=== PATIENT | female | born 1985 | race Caucasian/White ===

== ENCOUNTER 2023-12-26 10:58 | Inpatient (IN) ==
[2023-12-26] MEDS ORDERED: OXYTOCIN 30 UNITS/NSS 30 UNITS/500 ML BAG IV PRN (11:13)
[2023-12-26] MEDS ORDERED: LIDOCAINE 1% LOCAL 20 ML VIAL INFIL PRN (11:13)
--- NOTE | 2023-12-26 11:16 | History & Physical Report ---
Date of Service December 26, 2023 Assessment & Plan (1) 39 weeks gestation of : Plan: Admit, routine labs, admission syphilis ordered Continuous monitoring consent signed at bedside due to category 2 tracing Proceed with if no improvement in strip, or if becomes category 1 will start induction of labor at this time Epidural if patient request (2) Chronic hypertension during , antepartum: Plan: Initial BP on admission 159/89. Stat PIH labs ordered and protein creatinine ratio Continue labetalol 200 mg twice daily If severe range blood pressures or signs or symptoms of severe preeclampsia will start magnesium sulfate for seizure prophylaxis (3) Antepartum anemia complicating in third trimester: Plan: Admission CBC pending (4) AMA (advanced maternal age) primigravida 35+: Admission and Anticipated Discharge Date Admission Date: December 26, 2023 History of Present Illness Chief Complaint: IOL Primary Care Provider: Joseline Brian MD Patient is a pleasant 38-year-old G1, P0 at 39 weeks and 0 days dated by LMP consistent with a 9-week ultrasound who presents for induction of labor at 39 weeks for chronic hypertension on medication. She is currently taking labetalol 200 mg twice daily. She took her morning dose this morning. Immediately called to labor and delivery room as patient had tachycardia in the late deceleration with minimal variability afterwards. has been complicated by chronic hypertension in , AMA, history of growth restriction at 27 weeks that resolved per MFM at 33 weeks, and antepartum anemia. Last estimated weight on 12/13/2023 was 15th percentile Patient denies regular contractions, leaking of fluid or vaginal bleeding. Notes good movement. Denies headache, blurry vision, right upper quadrant or epigastric pain. Otherwise feeling well. Denies any caffeine use this morning Allergies Allergy/AdvReac Type Severity Reaction Status Date / Time amoxicillin Allergy Intermediate Rash Verified 10/25/22 10:08 seasonal allergies Allergy Mild Congested Uncoded 10/25/22 10:08 LACTOSE INTOLERANCE AdvReac Unknown UNKNOWN Uncoded 10/25/22 10:08 Home Medications Medication Instructions Recorded Confirmed Type sertraline 25 mg tablet 25 mg PO PM 12/30/20 12/26/23 History aspirin 81 mg tablet,delayed 81 mg PO DAILY 12/26/23 12/26/23 History release cholecalciferol (vitamin D3) 25 25 mcg PO DAILY 12/26/23 12/26/23 History mcg (1,000 unit) capsule (Vitamin D3) labetalol 200 mg tablet 200 mg PO BID 12/26/23 12/26/23 History vit no.95-ferrous tab PO 12/26/23 History fumarate 28 mg-folic acid 800 mcg tablet () Patient History Medical History Migraines Family History Grandmother (Maternal) Breast cancer Family/Other Breast cancer Denies family history of Ovarian cancer Prostate cancer Myocardial infarction Colorectal cancer Social History Smoking Status: Never smoker Tobacco Type: Cigarettes Do You Dip or Chew Tobacco: No; Preferred Language: Turkmen marital status: Current Living Situation: Spouse current occupational status: employed Feels Safe at Home: Yes OB History RADIO DESPATCHER History Denies history of STDs Review of Systems All systems reviewed & are unremarkable except as noted in HPI & below Physical Exam Constitutional: WD/WN, vitals as above Respiratory: normal respiratory effort, lungs clear to auscultation Cardiovascular: RRR, no murmur, no edema Gastrointestinal (Abdomen): normal bowel sounds, soft, nontender, no hepatosplenomegaly Nicholas's estimated weight 3100g Genitourinary: External genitalia: Normal Cervix: Fingertip/10/-3 Results & Data Vital Signs (Past 12 Hours) Vital Signs Temp Pulse Resp BP 12/26/23 11:08 109 H 12/26/23 11:08 159/89 H 12/26/23 11:00 18 12/26/23 11:00 37.1 C 18 Monitoring External Monitor heart tracing: Baseline 1 55-1 60, minimal to moderate variability, no accelerations, late deceleration x 1, category 2 tracing Tocodynamometer Irregular contractions (4) AMA (advanced maternal age) primigravida 35+ Trimester: third trimester Qualified Code(s): O09.513 - Supervision of elderly primigravida, third trimester
[2023-12-26] MEDS: LACTATED RINGER'S 1,000 ML IV PRN (11:35)
[2023-12-26 12:06] LABS: Hematocrit (blood only) 37.1 % (37.0-47.0); Hemoglobin 12.6 g/dl (12.0-16.0); Mean Corpuscular Hemoglobin 31.7 pg (25.0-34.0); Mean Corpuscular Volume 93.5 fL (80.0-100.0); Mean Platelet Volume 11.8 fL (9.4-12.4); Platelet Count 234 K/uL (130-400); RDW Coefficient of Variation 13.4 % (11.5-14.5); RDW Standard Deviation 45.6 fL (36.4-46.3); Red Blood Count 3.97 M/uL (4.20-5.40); White Blood Count 11.22 K/ul (4.8-10.8)
[2023-12-26 12:29] LABS: Albumin Level 3.5 gm/dl (3.4-5.0); Bilirubin,Total 0.2 mg/dl (0.2-1.0); Calcium 9.7 mg/dl (8.6-10.3); Potassium 4.2 mmol/L (3.5-5.1)
[2023-12-26 12:33] LABS: Total Protein Urine Random 16.3 mg/dl (0-11.9)
[2023-12-26 12:35] LABS: Albumin Globulin Ratio 1.3 (0.9-2); Creatinine Clr Calc Pharmacy 145.1 ml/min; Est GFR (African American) 138.9 ml/min; Est GFR (Non-African American) 119.8 ml/min; Globulin 2.8 gm/dl (2.5-4.0); Total Protein 6.3 gm/dl (6.0-8.3)
[2023-12-26 12:38] LABS: Creatinine Urine Random 39.9 mg/dl; Protein Creatinine Ratio Urine 0.4 (0-0.2)
[2023-12-26] MEDS: miSOPROStoL 50 MCG TAB PO SCH (12:51)
--- NOTE | 2023-12-26 14:44 | Obstetrical Progress Note ---
Date of Service December 26, 2023 Assessment & Plan (1) 39 weeks gestation of : Plan: Continue misoprostol 50 mcg p.o. every 4 hours Epidural if patient request Anticipate starting oxytocin for augmentation when patient makes adequate cervical change Anticipate spontaneous vaginal delivery (2) Chronic hypertension with superimposed preeclampsia: Plan: Based on elevated blood pressures with protein creatinine ratio of 0.4 Continue labetalol 200 mg twice daily, magnesium sulfate and rescue if severe range blood pressures or becomes symptomatic Patient updated at bedside (3) AMA (advanced maternal age) primigravida 35+: (4) Antepartum anemia complicating in third trimester: Plan: Admission H&H stable Admission and Anticipated Discharge Date Admission Date: December 26, 2023 Subjective Patient comfortable at this time, no complaints Physical Exam Genitourinary: heart tracing: Baseline 155, moderate variability, positive accelerations, no decelerations, currently category 1 tracing Tocometer: Contractions every 3 to 5 minutes Cervical exam: Deferred Results & Data Vital Signs (Past 12 Hours) Vital Signs Temp Pulse Resp BP 12/26/23 12:40 96 H 133/81 12/26/23 11:59 103 H 151/92 H 12/26/23 11:45 102 H 140/92 12/26/23 11:15 37.1 C 109 H 18 159/89 H 12/26/23 11:08 109 H 12/26/23 11:08 159/89 H 12/26/23 11:00 18 12/26/23 11:00 37.1 C 18 Laboratory Results Laboratory Results WBC 11.22 K/ul (4.8-10.8) H 12/26/23 11:38 RBC 3.97 M/uL (4.20-5.40) L 12/26/23 11:38 Hgb 12.6 g/dl (12.0-16.0) 12/26/23 11:38 Hct 37.1 % (37.0-47.0) 12/26/23 11:38 MCV 93.5 fL (80.0-100.0) 12/26/23 11:38 MCH 31.7 pg (25.0-34.0) 12/26/23 11:38 MCHC 34.0 g/dL (32.0-36.0) 12/26/23 11:38 RDW Std Deviation 45.6 fL (36.4-46.3) 12/26/23 11:38 RDW Coeff of Sai 13.4 % (11.5-14.5) 12/26/23 11:38 Plt Count 234 K/uL (130-400) 12/26/23 11:38 MPV 11.8 fL (9.4-12.4) 12/26/23 11:38 Sodium 135 mmol/L (136-145) L 12/26/23 11:38 Potassium 4.2 mmol/L (3.5-5.1) 12/26/23 11:38 Chloride 107 mmol/L (98-107) 12/26/23 11:38 Carbon Dioxide 19 mmol/L (21-32) L 12/26/23 11:38 Anion Gap 9 (3-11) 12/26/23 11:38 BUN 11 mg/dl (6-23) 12/26/23 11:38 Creatinine 0.55 mg/dl (0.6-1.2) L 12/26/23 11:38 Est Cr Clr Drug Dosing 145.1 ml/min 12/26/23 11:38 Est GFR ( Amer) 138.9 ml/min 12/26/23 11:38 Est GFR (Non-Af Amer) 119.8 ml/min 12/26/23 11:38 BUN/Creatinine Ratio 20.0 (10-20) 12/26/23 11:38 Glucose 119 mg/dl (70-99(Fasting)) H 12/26/23 11:38 Calcium 9.7 mg/dl (8.6-10.3) 12/26/23 11:38 Total Bilirubin 0.2 mg/dl (0.2-1.0) 12/26/23 11:38 AST 16 U/L (13-39) 12/26/23 11:38 ALT 14 U/L (7-52) 12/26/23 11:38 Alkaline Phosphatase 176 U/L (34-104) H 12/26/23 11:38 Total Protein 6.3 gm/dl (6.0-8.3) 12/26/23 11:38 Albumin 3.5 gm/dl (3.4-5.0) 12/26/23 11:38 Globulin 2.8 gm/dl (2.5-4.0) 12/26/23 11:38 Albumin/Globulin Ratio 1.3 (0.9-2) 12/26/23 11:38 Ur Random Creatinine 39.9 mg/dl 12/26/23 11:30 U Random Total Protein 16.3 mg/dl (0-11.9) H 12/26/23 11:30 Protein/Creatinin Ratio 0.4 (0-0.2) H 12/26/23 11:30 Blood Type A Positive 12/26/23 11:38 Antibody Screen NEGATIVE 12/26/23 11:38 (3) AMA (advanced maternal age) primigravida 35+ Trimester: third trimester Qualified Code(s): O09.513 - Supervision of elderly primigravida, third trimester
--- NOTE | 2023-12-26 18:30 | Obstetrical Progress Note ---
Date of Service December 26, 2023 Assessment & Plan (1) 39 weeks gestation of : Plan: Continue misoprostol 50 mcg p.o. every 4 hours. Currently lakshmi too much to give a second dose at this time Epidural if patient request Anticipate starting oxytocin for augmentation when patient makes adequate cervical change Anticipate spontaneous vaginal delivery (2) Chronic hypertension with superimposed preeclampsia: Plan: Based on elevated blood pressures with protein creatinine ratio of 0.4 Continue labetalol 200 mg twice daily, magnesium sulfate and rescue if severe range blood pressures or becomes symptomatic (3) AMA (advanced maternal age) primigravida 35+: (4) Antepartum anemia complicating in third trimester: Plan: Admission H&H stable Admission and Anticipated Discharge Date Admission Date: December 26, 2023 Subjective No complaints, patient was checked by RN Physical Exam Genitourinary: heart tracing: Baseline 140, moderate variability, positive accelerations no decelerations, category 1 tracing Tocometer: Contractions every 2 to 4 minutes Cervix: 2/50/-3, was checked by RN Results & Data Vital Signs (Past 12 Hours) Vital Signs Temp Pulse Resp BP 12/26/23 17:01 103 H 145/80 H 12/26/23 15:13 100 H 146/87 H 12/26/23 15:00 18 12/26/23 15:00 36.5 C 18 12/26/23 12:40 96 H 133/81 12/26/23 11:59 103 H 151/92 H 12/26/23 11:45 102 H 140/92 12/26/23 11:15 37.1 C 109 H 18 159/89 H 12/26/23 11:08 109 H 12/26/23 11:08 159/89 H 12/26/23 11:00 18 12/26/23 11:00 37.1 C 18 (3) AMA (advanced maternal age) primigravida 35+ Trimester: third trimester Qualified Code(s): O09.513 - Supervision of elderly primigravida, third trimester
[2023-12-26] MEDS: SERTRALINE HCL 50 MG TABLET PO SCH (20:45)
[2023-12-26] MEDS: LABETALOL HCL 200 MG TAB PO SCH (21:03)
[2023-12-27 05:53] LABS: Basophils # (auto) 0.04 K/uL (0.00-0.20); Basophils % (auto) 0.3 %; Eosinophils # (auto) 0.18 K/uL (0.00-0.50); Eosinophils % (auto) 1.6 %; Hematocrit (blood only) 36.2 % (37.0-47.0); Hemoglobin 12.2 g/dl (12.0-16.0); Immature Granulocytes # (auto) 0.13 K/uL (0.01-0.20); Immature Granulocytes % (auto) 1.1 %; Lymphocytes # (auto) 1.53 K/uL (1.20-3.40); Lymphocytes % (auto) 13.2 %; Mean Corpuscular Hemoglobin 31.6 pg (25.0-34.0); Mean Corpuscular Hgb Conc 33.7 g/dL (32.0-36.0); Mean Corpuscular Volume 93.8 fL (80.0-100.0); Mean Platelet Volume 11.7 fL (9.4-12.4); Monocytes # (auto) 0.82 K/uL (0.11-0.59); Monocytes % (auto) 7.1 %; Neutrophils # (auto) 8.86 K/uL (1.40-6.50); Neutrophils % (auto) 76.7 %; Platelet Count 214 K/uL (130-400); RDW Coefficient of Variation 13.7 % (11.5-14.5); RDW Standard Deviation 46.5 fL (36.4-46.3); Red Blood Count 3.86 M/uL (4.20-5.40); White Blood Count 11.56 K/ul (4.8-10.8)
[2023-12-27 06:03] LABS: Albumin Globulin Ratio 1.2 (0.9-2); Albumin Level 3.3 gm/dl (3.4-5.0); BUN Creatinine Ratio 14.1 (10-20); Bilirubin,Total 0.4 mg/dl (0.2-1.0); Calcium 8.6 mg/dl (8.6-10.3); Creatinine Clr Calc Pharmacy 124.7 ml/min; Est GFR (African American) 132.1 ml/min; Globulin 2.7 gm/dl (2.5-4.0)
--- NOTE | 2023-12-27 06:17 | Obstetrical Progress Note ---
Date of Service December 27, 2023 Assessment & Plan (1) 39 weeks gestation of : Plan: Patient is status post 4 doses of misoprostol p.o. Now status post AROM, start oxytocin for augmentation Epidural if patient request Anticipate spontaneous vaginal delivery (2) Chronic hypertension with superimposed preeclampsia: Plan: Based on elevated blood pressures with protein creatinine ratio of 0.4 Continue labetalol 200 mg twice daily, magnesium sulfate and rescue if severe range blood pressures or becomes symptomatic (3) AMA (advanced maternal age) primigravida 35+: (4) Antepartum anemia complicating in third trimester: Plan: Admission H&H stable Admission and Anticipated Discharge Date Admission Date: December 26, 2023 Subjective Patient getting more uncomfortable with contractions, sitting up in bed Physical Exam Genitourinary: heart tracing: Baseline 130, moderate variability, no accelerations no decelerations Tocometer: Irregular contractions Cervix: 5/60/-3, AROM performed with moderate amount of clear fluid. No cord felt. No complications Results & Data Vital Signs (Past 12 Hours) Vital Signs Temp Pulse Resp BP 12/27/23 04:19 37.0 C 96 H 16 123/67 12/27/23 00:21 88 134/77 12/27/23 00:20 18 12/27/23 00:20 36.8 C 18 12/26/23 21:02 98 H 145/90 H 12/26/23 19:19 95 H 144/87 H 12/26/23 19:05 18 12/26/23 19:05 37.0 C 18 (3) AMA (advanced maternal age) primigravida 35+ Trimester: third trimester Qualified Code(s): O09.513 - Supervision of elderly primigravida, third trimester
--- OUTSIDE RECORDS SUMMARY | 2023-12-27 08:53 | External Medical Summary | Summary of Care ---
Author Name Unknown Organization [facility] Address [address] [place] [address] Phone [phone] Care Team Providers Care Invasive Manager Name Role Phone Lelia Mendoza DO Primary Care Provider + [phone] Reason for Visit * Reason Comments Outpatient Testing Encounter Details Date Type Department Care Team (Late st Contact Info) Description 12/20/2023 10:40 AM EDT Laboratory Laboratory, [facility] [address] [place] [phone] [facility] [address] [place] [address] [employer] Other*[id number] Allergies Active Allergy Reactions Criticality Noted Date Comments Amoxicillin Rash 10/16/2016 Pollen 05/08/2023 documented as of this encounter (statuses as of 12/20/2023) Medications Medication Sig Dispensed Refills Start Date End Date Status Vit-Fe Fumarate-FA ( VITAMIN) 27-0.8 MG TABS Take by mouth. 0 Active Vitamin D (Cholecalciferol) 25 MCG (1000 UT) Oral Capsule Take by mouth . 0 Active Lactaid Fast Act 9000 UNIT Oral Tablet (Lactase) Take by mouth. 0 Acti ve Aspirin 81 MG Oral Tablet Delayed Release Take 1 Tablet by mouth in the morning. 0 07/04/2023 Active Breast Pump Use as directed 1 Each 0 11/22/2023 Active Sertraline HCl 25 MG Oral Tablet (Zoloft)Indications: Recurrent major depressive disorder, in partial remission (HCC) Take 1 Tablet by mouth in the morning. 30 Tablet 11 12/06/2023 Active Additional Information Patient not taking.Reported on 12/20/2023 Labetalol HCl 200 MG Oral Tablet (Normodyne)Indicatio ns:Chronic hypertension in Take 1 Tablet by mouth in the morning and 1 Tablet before bedtime. 60 Tablet 2 12/13/2023 Active documented as of this encounter (statuses as of 12/20/2023) Active Problems Problem Noted Date Diagnosed Date Antepartum multigravida of advanced maternal age 1208/09/2023 Overview: Age 38 at delivery NIPT: low risk / boy MFM anatomy scan scheduled 08/19/2023 Last Assessment & Plan: She presents for a anatomy survey secondary to AMA and CHTN (not on medications). Labs reviewed: -- cffDNA low risk for aneuploidy -- msAFP low risk for ONTD We reviewed the results of today's ultrasound. The estimated weight is lagging by 8 days. The biometry is overall appropriate for gestational age. The visualized anatomy is unremarkable in appearance. Some structures are suboptimally imaged secondary to position and poor acoustic windows. The amniotic fluid amount appears normal. We discussed that ultrasound is not able to identify all anomalies, but it is reassuring that no anomalies were seen today. We reviewed the biometry and estimated weight, which are on the smaller side of normal overall. She reports a family history of smaller babies, and we discussed that this may be a constitutional finding. Given the early gestational age, we will to reassess in about 3-4 weeks. High-risk 08/09/2023 Chronic hypertension in 08/01/2023 Overview: Chronic hypertension in Diagnosed at 18 weeks gestation Taking daily low dose ASA Doing daily home BP monitoring: running 130s / high 80's to low 90's Started on medication Labetalol 200 mg BID at 12/13/2023, weekly NST Considerations: Women with chronic hypertension during are at significantly increased risk for morbidity. Signs and symptoms of superimposed pre-eclampsia were reviewed; instructed patient to contact primary OB care provider if these symptoms occur. Recommendations: Obtain baseline lab work SCOTTIE (if not already done) with assessment of proteinuria (24-hour urine protein or zfhrzvs-[id number] ratio) and CBC, serum AST/ALT/creatinine. If patient has had hypertension for 10 years or more, obtain an EKG and eye exam (if not performed within the past year). Recommend initiation of aspirin (81mg) daily, from 13 weeks until delivery, to decrease the risk of superimposed preeclampsia. Daily home blood pressure monitoring, especially in the second half of the . It may be useful to have the patient validate their home device with their primary OB care provider's office. Patients with BP less than 140/90 maintained with antihypertensives should continue medication during . Discontinuation of YULISSA inhibitors or angiotensin type II receptor antagonists under the guidance of the primary care physician prior to conception of or upon knowledge of . Initiate or adjust antihypertensive medication if BP is 140/90 or greater on at least two occasions at least 4 hours apart and refer patient back to Maternal- Medicine. Titrate medication to maintain blood pressure in a goal range 120-140/70-90. Labetalol and Nifedipine are considered safe for use in and these agents are considered as first-line therapy when indicated. Maternal Medicine ultrasound for anatomy at 19-20 weeks. surveillance as follows: If NOT being treated with anti-hypertensives: Maternal- Medicine ultrasound for growth between 28-30 weeks If being treated with anti-hypertensives: Maternal- Medicine ultrasound for growth every 4 weeks starting at 24-26 weeks surveillance weekly starting at 32 weeks gestation Delivery should be individualized based on blood pressure control and assessment of patient risk and is indicated as follows: For those with stable blood pressures not on anti-hypertensive medications: Between 38 0/7 and 39 6/7 weeks For those on anti-hypertensive medications: Between 37 0/7 and 39 6/7 weeks Baseline Preeclampsia Labs Lab Results Component Value Date/Time PLATELET AUTO - [facility] 294 07/04/2023 11:11 AM CREATININE - [facility] 0.6 07/04/2023 11:11 AM AST - [facility] 12 07/04/2023 11:11 AM ALT - [facility] 15 07/04/2023 11:11 AM PROTEIN/ CREATININE RATIO, URINE - [facility] 65 07/08/2023 01:46 PM BP Readings from Last 10 Encounters: 08/01/23 136/80 07/08/23 140/80 07/04/23 140/90 06/06/23 112/78 05/08/23 116/70 07/31/22 112/68 07/17/22 110/70 06/06/22 116/62 02/05/22 120/60 07/13/21 122/74 Last Assessment & Plan: Her initial BP was 160/90 with a repeat of 144/74. She denies headaches/vision changes or RUQ pain and reports some work stress today that may have impacted the first value. She states home BP's have been 128-136/85-92 or so, though on review of her flowsheet most values are > 140 systolic. I recommended continued home monitoring and would consider medications if consistent values > 140/90. Chronic intractable headache 02/05/2022 Allergic rhinitis 02/05/2022 Recurrent major depressive disorder, in partial remission 12/05/2021 Estimated Date of Delivery Comme nts Yes 01/02/2024 Based on last me nstrual period of 03/28/2023 (Exact Date), 03/28 - 03/31 was LMP documented as of this encounter (statuses as of 12/20/2023) Resolved Problems Problem Noted Date Diagnosed Date Resolved Date Poor growth affecting management of mother, antepartum 10/04/2023 12/06/2023 Overview: EFW 8th %ile at 27 weeks; weekly BPP/NST and dopplers per MFM Resolved per MFM as of 33 weeks, no surveillance needed for FGR Last Assessment & Plan: She presents for follow-up of growth. FGR has been noted on prior imaging, though the most recent evaluation was in the lower range of normal. She has a history of AMA and CHTN (not on medications). Today's ultrasound notes the following: The estimated weight is appropriate for gestational age in the 17th percentile with an AC in the 29th percentile. The visualized anatomy is unremarkable in appearance. The CHASE is normal. with 19 completed weeks gestation 08/09/2023 08/19/2023 Elevated blood pressure affe cting in second trimester, antepartum 07/04/2023 08/02/20 23 Overview: Elevated BP at 14w Positive test 05/08/2023 11/3 documented as of this encounter (statuses as of 12/20/2023) Immunizations Name Administration Dates Next Due COVID-19 mRNA, LNP-s, No Pre serve, 2-Dose Series (Pfizer) 10/01/2020,09/10/2020 DTWP - Dipth/Tet/Whole Cell Pertussis 04/02/2005 PPD 09/20/2017,09/11/2017 Seasonal Influenza, PF, 6 M & above, IM , (FluLaval or Fluzone) 06/28/2021 Seasonal Influenza, QUAD, wi th Preserv, 6 mons & Above, 0.5 mL, IM 06/16/2020 Seasonal Influenza, Split, IIV3, With Preserve, Inj 07/16/2016,06/21/2015 TD, Preservative Free 11/10/2018 TDAP (age 10 and older)(Boostrix) 11/08/2023 TDAP (age 11 and older)(Adacel) 04/02/2005 documented as of this encounter Social History Tobacco Use Types Packs/Day Years Used Date Smoking Tobacco: Never Smokeless Tobacco: Never Comments:No passive smoke ex posures Alcohol Use Standard Drinks/Week Comments Not Currently 0 (1 standard drink = 0.6 oz pur e alcohol) PHQ-2 Answer Date Recorded PHQ Adult Total Score 0 11/08/2023 Hunger Vital Sign Answer Date Recorded Within the past 12 months, y ou worried that your food would run out before you got the money to buy more. Patient declined Within the past 12 months, t he food you bought just didn't last and you didn't have money to get more. Patient declined Meadow Depression Scale Answer Date Recorded Meadow Depression Scale Total 8 11/08/2023 The thought of harming myself has occurred to me . Never 11/08/2023 Estimated Date of Delivery Comme nts Yes 01/02/2024 Based on last me nstrual period of 03/28/2023 (Exact Date), 03/28 - 03/31 was LMP Sex and Gender Information Value Date Recorded Sex Assigned at Female 01/05/2021 9:06 AM EDT Gender Identity Female 01/05/2021 9:06 AM EDT Sexual Orientation Straight 01/05/2021 9: 06 AM EDT Job Start Date Occupation Industry Not on file Not on file Not on file documented as of this encounter Plan of Treatment Upcoming Encounters Date Type Department Care Team (Late st Contact Info) Description 12/27/2023 9:15 AM EDT Office Visit Gynecology/Obstetrics [facility] [address] [place] [address] Tabatha Funez PA-C [address] [place] [address] 01/01/2024 9:30 AM EDT Office Visit Gynecology/Obstetrics [facility] [address] [place] [address] Karol Beavers CRNP [address] [place] [address] 01/22/2024 12:50 PM EDT [place] [address] [place] [id number] Lelia Mendoza DO [address] [place] [address] Pending Results Name Type Priority Associated Diagnoses Date /Time MYCODE SUBSEQUENT ADULT Lab Routine [employer] Other*[id number] 12/20/2023 10:22 AM EDT MYCODE SST1 Lab Routine [employer] Other*[id number] 12/20/2023 10:22 AM EDT MYCODE SST2 Lab Routine [employer] Other*[id number] 12/20/2023 10:22 AM EDT Health Maintenance Due Date Last Done Comments Hepatitis B (1 of 3 - 19+ 3-dose series) 2005 HPV/Co-Test 2016 Influenza Vaccine (FLU shot) (Season Ended) 2024 06/28/2021, 06/16/2020, 07/16/2016, Additional history exists Cervical Cancer Screening 07/13/2024 Pap Smear 07/13/2024 07/13/2021, 10/31, 01/23/2016 GFR 12/12/2024 12/13/2023, 0401/2024, 07/04/2023, Additional history exists Diabetes Screening 12/12/2026 12/13/2023, 1 10/24/2019, 08/23/2020, Additional history exists DTaP,Tdap,and Td Vaccines (4 - Td or Tdap) 11/07/2033 11/08/2023, 11/10/2018, 04/02/2005, Additional history exists COVID-19 Vaccine Completed 07/11/2023, , 10/01/2020, Additional history exists GARDASIL-HPV IMMUNIZATION SERIES Aged Out No longer eligible based on patient's age to complete this topic MENINGOCOCCAL (MENACTRA/MENVEO) Aged Out No longer eligible based on patient's age to complete this topic Pneumococcal Vaccine: Pediatrics (0 to 5 Years) and At-Risk Patients (6 to 64 Years) Aged Out No longer eligible based on patient's age to complete this topic documented as of this encounter Medical Devices Not on filedocumented as of this encounter Visit Diagnoses Diagnosis [employer] Other*[id number] documented in this encounter Care Teams Invasive Manager Relationship Specialty Start Date End Date Lelia Mendoza DO [address] [place] [address] PCP - General Family Medicine 10/14/23 documented as of this encounter
--- OUTSIDE RECORDS SUMMARY | 2023-12-27 08:53 | External Medical Summary ---
Author Name Unknown Address Unknown Organization [id number]:LAB[facility] [place] - [address] [place] [address] Laboratory Report Ordering Provider Test Date Status MICHAEL GODINEZ 12/20/2023 10:22:20 Final Observation Date Value Abnormality Reference (Units ) Status MYCODE SPECIMEN-SST 12/20/2023 10:22:20 Freezing of extracted DNA, whole blood and/or serum. Final Performing Location [facility] [place] - [address] [place] [address]
--- OUTSIDE RECORDS SUMMARY | 2023-12-27 08:53 | External Medical Summary ---
Author Name Unknown Address Unknown Organization [id number]:[facility] [place] - [address] [place] [address] Laboratory Report Ordering Provider Test Date Status MICHAEL GODINEZ 12/20/2023 10:22:20 Final Observation Date Value Abnormality Reference (Units ) Status MYCODE SPECIMEN-SST 12/20/2023 10:22:20 Freezing of extracted DNA, whole blood and/or serum. Final Performing Location [facility] [place] - [address] [place] [address]
--- OUTSIDE RECORDS SUMMARY | 2023-12-27 08:53 | External Medical Summary | Summary of Care ---
Author Name Unknown Organization [facility] Address [address] [place] [address] Phone [phone] Care Team Providers Care Assignment Clerk Name Role Phone Lelia Mendoza DO Primary Care Provider [phone] Reason for Visit * Reason Comments Return Visit Encounter Details Date Type Department Care Team (Late st Contact Info) Description 12/20/2023 9:15 AM EDT Office Visit Gynecology/Obstetric s [facility] [address] [place] [address] Tabatha Funez PA-C [address] [place] [address] High-risk in third trimester*; Chronic hypertension in ; Antepartum multigravida of advanced maternal age Allergies Active Allergy Reactions Criticality Noted Date [...] assessment of proteinuria (24-hour urine protein or qbcahjw-ga-wuewsbcwxb ratio) and CBC, serum AST/ALT/creatinine. If patient [...] cting in second trimester, antepartum 07/04/2023 08/02/20 Overview: Elevated BP at 14w Positive test 05/08/202307/05 documented as of this encounter (statuses as [...] have money to get more. Patient declined [place] Depression Scale Answer Date Recorded [place] Depression Scale Total 8 11/08/2023 The thought [...] on file documented as of this encounter Last Filed Vital Signs Vital Sign Reading Time Taken Comments Blood Pressure 140/88 12/20/2023 9:11 AM EDT rep eat 142/88 Pulse - - Temperature - - Respiratory Rate - - Oxygen Saturation - - Inhaled Oxygen Concentration - - Weight 88.9 kg (196 lb) 12/20/2023 9:11 AM EDT Height 157.5 cm (5' 2") 12/20/2023 9:11 AM EDT Body Mass Index 35.85 12/20/2023 9:11 AM EDT documented in this encounter Progress Notes * Tabatha Funez PA-C - 12/20/2023 1:56 PM EDT 38w1d CHTN started on Labetalol 200 mg BID with last visit. PEC labs WNL. Denies moreno, RUQ pain, cp, SOB, epigastric pain. Doing well overall. Still having trouble sleeping. She states partner snores at night. NST completed today as on medication. AIDE David read/approved NST as provider was in rapid response. Repeat PEC labs today. IOL scheduled 12/26/2023. PEC precautions. Tabatha Funez PA-C * Karol Beavers CRNP - 12/20/2023 10:10 AM EDT ASSESSMENT assessment with Non-stress Test completed on 12/20/2023 at 38.1weeks gestation for indication of chronic hypertension heart baseline: 150 bpm Variability: Moderate Decelerations: absent Accelerations: present Contractions: None NST start time: 09 NST stop time: 09 NST strip reviewed, interpreted, and approved by OB provider, AIDE Nick . NST strip stored in clinic storage file documented in this encounter Nursing Notes * Sharon Magaña LPN - 12/20/2023 9:19 AM EDT 38w1d documented in this encounter Plan of Treatment Upcoming Encounters Date Type Department Care Team (Late st Contact Info) Description 12/27/2023 9:15 AM EDT Office Visit Gynecology/Obstetrics [facility] [address] [place] [address] Tabatha Funez PA-C [address] [place] [address] 01/01/2024 9:30 AM EDT Office Visit Gynecology/Obstetrics [facility] [address] [place] [address] Karol Beavers CRNP [address] [place] [address] 01/22/2024 12:50 PM EDT Telemedicine [place] [address] [place] [id number] Lelia Mendoza DO [address] [place] [address] Pending Results Name Type Priority Associated Diagnoses Date /Time PROTEIN/ CREATININE RATIO, URINE Lab Routine High-risk in third trimester Chronic hypertension in 12/20/2023 11:36 AM EDT Health Maintenance Due Date Last Done Comments Hepatitis B (1 of 3 - 19+ 3-dose series) 2005 HPV/Co-Test 2016 Influenza Vaccine (FLU shot) (Season Ended) 2024 06/28/2021, 06/16/2020, 07/16/2016, Additional history exists Cervical Cancer Screening 07/13/2024 Pap Smear 07/13/2024 07/13/2021, 10/31, 01/23/2016 GFR 12/19/2024 12/20/2023, 12/01, 12/06/2023, Additional history exists Diabetes Screening 12/19/2026 12/20/2023, 0 12/13/2023, 08/23/2020, Additional history exists DTaP,Tdap,and Td Vaccines [...] Not on filedocumented as of this encounter Procedures Procedure Name Priority Date/Time Associated Diagnosis Comments COMPREHENSIVE METABOLIC PANEL Routine 12/20/2023 10:22 AM EDT High-risk in third trimester Chronic hypertension in CBC Routine 12/20/2023 10:22 AM EDT High-risk in third trimester Chronic hypertension in URINALYSIS, POINT OF CARE (ENTER/EDIT) Routine 12/20/2023 Chronic hypertension in documented in this encounter Results * (ABNORMAL) CBC (12/20/2023 10:22 AM EDT) WBC 12.34(H) 4.00 - 10.80 K/uL 12/20/2023 11:05 AM EDT LAB[facility]ATORY [place] [facility] RBC 4.16 3.85 - 5.15 M/uL 12/20/2023 11:05 AM EDT LAB[facility] [place] [facility] HGB 13.1 12.0 - 15.3 g/dL 12/20/2023 11:05 AM EDT [facility] HCT 40.2 36.0 - 45.2 % 12/20/2023 11:05 AM EDT [facility] [place] [facility] MCV 96.6 81.5 - 97.5 fL 12/20/2023 11:05 AM EDT [facility] [place] [facility] MCH 31.5 27.0 - 34.0 pg 12/20/2023 11:05 AM EDT [facility] [place] [facility] MCHC 32.6 32.0 - 36.0 g/dL 12/20/2023 11:05 AM EDT [facility] [place] [facility] RDW 13.6 11.5 - 15.5 % 12/20/2023 11:05 AM EDT [facility] [place] [facility] PLT 244 140 - 400 K/uL 12/20/2023 11:05 AM EDT [facility] [place] [facility] MPV 11.8 6.6 - 11.1 fL 12/20/2023 11:05 AM EDT [facility] Blood Venous blood specimen / Unknown Venipuncture / Unknown 12/20/2023 10:22 AM EDT 12/20/2023 10:22 AM EDT Tabatha Funez PA-C LAB BLOOD ORDERABLES [facility] [place] [address] [place] [address] [place] [address] * (ABNORMAL) COMPREHENSIVE METABOLIC PANEL (12/20/2023 10:22 AM EDT) BUN 11 6 - 20 mg/dL 12/20/2023 11:38 AM EDT [facility] Creatinine 0.7 0.5 - 1.0 mg/dL 12/20/2023 11:38 AM EDT [facility] [place] [facility] Estimated Glomerular Filtration Rate >90 >=60 mL/min 12/20/2023 11:38 AM EDT [facility] [place] [facility] Comment:eGFR is calculated b ased on the CKD-EPI 2020 equation Sodium 134(L) 135 - 146 mmol/L 12/20/2023 11:38 AM EDT [facility] [place] [facility] Potassium 4.4 3.5 - 5.1 mmol/L 12/20/2023 11:38 AM EDT [facility] [place] [facility] Chloride 101 98 - 107 mmol/L 12/20/2023 11:38 AM EDT [facility] [place] [facility] CO2 21(L) 22 - 32 mmol/L 12/20/2023 11:38 AM EDT LAB[facility] [place] [facility] Anion Gap 12 7 - 15 mmol/L 12/20/2023 11:38 AM EDT [facility] [place] [facility]10 Glucose 84 70 - 120 mg/dL 12/20/2023 11:38 AM EDT [facility] [place] [facility] Albumin 3.8 3.8 - 5.0 g/dL 12/20/2023 11:38 AM EDT [facility] [place] [facility] AST 20 10 - 35 U/L 12/20/2023 11:38 AM EDT [facility] [place] [facility] Alkaline Phosphatase 196(H) 35 - 130 U/L 12/20/2023 11:38 AM EDT [facility] [place] [facility] Bilirubin, Total 0.2 <=1.2 mg/dL 12/20/2023 11:38 AM EDT [facility] [place] [facility] Calcium 8.7 8.4 - 10.2 mg/dL 12/20/2023 11:38 AM EDT [facility] [place] [facility] Protein 6.4 6.0 - 8.3 g/dL 12/20/2023 11:38 AM EDT [facility] [place] [facility] ALT 15 10 - 35 U/L 12/20/2023 11:38 AM EDT [facility] [place] [facility] Blood Venous blood specimen / Unknown Venipuncture / Unknown 12/20/2023 10:22 AM EDT 12/20/2023 10:22 AM EDT Tabatha Funez PA-C LAB BLOOD ORDERABLES [facility] [place] [facility] [address] [facility] [place] [address] * URINALYSIS, POINT OF CARE (ENTER/EDIT) (12/20/2023) Color, Urine Yellow Yellow or Light Yellow Clarity, Urine Clear Clear Glucose, Urine Negative Negative mg/dL Bilirubin, Urine Negative Negative Ketone, Urine Negative Negative mg/dL Specific [place], Urine 1.010 1.003 - 1.030 Blood, Urine Trace-intact Negative pH, Urine 6.5 5.0 - 7.5 units Protein, Urine Negative Negative mg/dL Urobilinogen, Urine 0.2 0.2 - 1.0 mg/dL Nitrite, Urine Negative Negative Esterase, Urine Small Negative Urine 12/20/2023 Tabatha Funez PA-C LAB POINT OF CARE [facility] ENTER/EDIT ORDERABLES documented in this encounter Visit Diagnoses Diagnosis High-risk in third trimester- Primary Chronic hypertension in Benign essential hypertension complicating , childbirth, and the puerperium, unspecified as to episode of care Antepartum multigravida of advanced maternal age documented in this encounter Care Teams Assignment Clerk Relationship Specialty Start Date End Date Lelia Mendoza DO [address] [facility] [place] [address] PCP - General Family Medicine 10/14/23 documented as of this encounter
--- OUTSIDE RECORDS SUMMARY | 2023-12-27 08:53 | External Medical Summary ---
Author Name Unknown Address Unknown Organization [id number]:LABORATORY [facility] - [address] [place] [address] Laboratory Report Ordering Provider Test Date Status PATRICIA 12/20/2023 11:36:40 Final Normal: <150 mg/ g creatinine
High: 150-500 mg/g creatinine
Very High: >500 mg/g creatinine
Nephrotic: >3000 mg/g creatinine Observation Date Value Abnormality Reference (Units ) Status Protein/Creatinine [Ratio] in Urine 12/20/2023 11:36:40 171 Above high normal <150 (mg/g ) Final Protein, Urine 12/20/2023 11:36:40 7 (mg/dL) Final Creatinine, Urine 12/20/2023 11:36:40 41 (mg/dL) Final Performing Location LABORATORY [facility] - [address] [place] [address]
--- OUTSIDE RECORDS SUMMARY | 2023-12-27 08:54 | External Medical Summary | Summary of Care ---
Author Name Unknown Organization [facility] Address [address] [place] [address] Phone [phone] Care Team Providers Care Route Delivery Manager Name Role Phone Lelia Mendoza DO Primary Care Provider [phone] Reason for Visit * Reason Comments Senior J2Ee Developer Return Encounter Details Date Type Department Care Team (Late st Contact Info) Description 12/16/2023 10:00 AM EDT Nurse Only Gynecology/Obstetrics [facility] [address] [facility] [place] [address] Gw, Nurse Obgyn Injection [address] [facility] [place] [address] Senior J2Ee Developer Return Allergies Active Allergy Reactions Criticality Noted Date Comments Amoxicillin Rash 10/16/2016 Pollen 05/08/2023 documented as of this encounter (statuses as of 12/16/2023) Medications Medication Sig Dispensed Refills Start Date End Date Status Vit-Fe Fumarate-FA ( VITAMIN) 27-0.8 MG TABS Take by mouth. 0 Active Vitamin D (Cholecalciferol) 25 MCG (1000 UT) Oral Capsule Take by mouth . 0 Active Lactaid Fast Act 9000 UNIT Oral Tablet (Lactase) Take by mouth. 0 Active Aspirin 81 MG Oral Tablet Delayed Release Take 1 Tablet by mouth in the morning. 0 07/04/2023 Active Breast Pump Use as directed 1 Each 0 11/22/2023 Active Sertraline HCl 25 MG Oral Tablet (Zoloft)Indications:R ecurrent major depressive disorder, in partial remission (HCC) Take 1 Tablet by mouth in the morning. 30 Tablet 11 12/06/2023 Active Labetalol HCl 200 MG Oral Tablet (Normodyne)Indication s:Chronic hypertension in Take 1 Tablet by mouth in the morning and 1 Tablet before bedtime. 60 Tablet 2 12/13/2023 Active documented as of this encounter (statuses as of 12/16/2023) Active Problems Problem Noted Date Diagnosed Date [...] assessment of proteinuria (24-hour urine protein or erhiyfb-gi-tmwzahgpog ratio) and CBC, serum AST/ALT/creatinine. If patient [...] as of this encounter (statuses as of 12/16/2023) Resolved Problems Problem Noted Date Diagnosed Date [...] as of this encounter (statuses as of 12/16/2023) Immunizations Name Administration Dates Next Due COVID-19 [...] have money to get more. Patient declined [place] Depression Scale Answer Date Recorded [place] Depression Scale Total 8 11/08/2023 The thought [...] Sign Reading Time Taken Comments Blood Pressure 142/90 12/16/2023 10:06 AM EDT Pulse - - Temperature - - Respiratory Rate - - Oxygen Saturation - - Inhaled Oxygen Concentration - - Weight 88.9 kg (196 lb) 12/16/2023 9:53 AM EDT Height 157.5 cm (5' 2") 12/16/2023 9:53 AM EDT Body Mass Index 35.85 12/16/2023 9:53 AM EDT documented in this encounter Nursing Notes * Audrey Davis LPN - 12/16/2023 9:53 AM EDT Started labetalol on Saturday. 200mgs BID. 154/82 Over the weekend running 150/96, 142/92 Recheck 142/90. Neg protein in urine. Reviewed with Dr. Montes and he is fine with Labetalol 200mgs BID to continue. Patient aware to call with changes. documented in this encounter Plan of Treatment Upcoming Encounters Date Type Department Care Team (Late st Contact Info) Description 12/20/2023 9:15 AM EDT Office Visit Gynecology/Obstetrics [facility] [address] [place] [address] Tabatha Funez PA-C [address] [place] [address] 12/27/2023 9:15 AM EDT Office Visit Gynecology/Obstetrics [facility] [address] [place] [address] Tabatha Funez PA-C [address] [place] [address] 01/01/2024 9:30 AM EDT Office Visit Gynecology/Obstetrics [facility] [address] [place] [address] Karol Beavers CRNP [address] [place] [address] 01/22/2024 12:50 PM EDT Telemedicine [facility] [address] [facility], [place] [phone] Lelia Mendoza, [address] [facility], [place] [address] Health Maintenance Due Date Last Done Comments Hepatitis B (1 of 3 - 19+ 3-dose series) 2005 HPV/Co-Test 2016 Influenza Vaccine (FLU shot) (Season Ended) 2024 06/28/2021, 06/16/2020, 07/16/2016, Additional history exists Cervical Cancer Screening 07/13/2024 Pap Smear 07/13/2024 07/13/2021, 10/31, 01/23/2016 GFR 12/12/2024 12/13/2023, 04/0 01/2024, 07/04/2023, Additional history exists Diabetes Screening 12/12/2026 [...] as of this encounter Visit Diagnoses Diagnosis Chronic hypertension in - Primary Benign essential hypertension complicating , childbirth, and the puerperium, unspecified as to episode of care Antepartum multigravida of advanced maternal age High-risk Unspecified high-risk documented in this encounter Care Teams Route Delivery Manager Relationship Specialty Start Date End Date Lelia Mendoza DO [address] [place] [facility] [place] [address] PCP - General Family Medicine 10/14/23 documented as of this encounter
--- OUTSIDE RECORDS SUMMARY | 2023-12-27 08:54 | External Medical Summary | Summary of Care ---
Author Name Unknown Organization [facility] Address [address] [place] [address] Phone [phone] Care Team Providers Care Paving Contractor Name Role Phone Lelia Mendoza DO Primary Care Provider [phone] Encounter Details Date Type Department Care Team (Late st Contact Info) Description 12/12/2023 8:45 AM EDT Office Visit [facility] Obst[facility], [address] [address] Nelda Avina, DO [address] [place] [address] Antepartum multigravida of advanced maternal age*; Chronic hypertension in ; Ultrasound for screening for growth restriction; 37 weeks gestation of Allergies Active Allergy Reactions Criticality Noted Date Comments Amoxicillin Rash 10/16/2016 Pollen 05/08/2023 documented as of this encounter (statuses as of 12/13/2023) Medications Medication Sig Dispensed Refills Start Date [...] the morning. 30 Tablet 11 12/06/2023 Active documented as of this encounter (statuses as of 12/13/2023) Active Problems Problem Noted Date Diagnosed Date [...] assessment of proteinuria (24-hour urine protein or ahdugij-vm-sucgfvecnp ratio) and CBC, serum AST/ALT/creatinine. If patient [...] as of this encounter (statuses as of 12/13/2023) Resolved Problems Problem Noted Date Diagnosed Date [...] Elevated BP at 14w Positive test 05/08/2023 11/ documented as of this encounter (statuses as of 12/13/2023) Immunizations Name Administration Dates Next Due COVID-19 [...] have money to get more. Patient declined [place] Depression Scale Answer Date Recorded [place] Depression Scale Total 8 11/08/2023 The thought [...] on file documented as of this encounter Progress Notes * Nelda Avina DO - 12/13/2023 12:49 PM EDT Gretchen presented for an ultrasound for the following indications: Antepartum multigravida of advanced maternal age Chronic hypertension in Ultrasound for screening for growth restriction 37 weeks gestation of Ultrasound summary: Patient presented at 37w 0d for growth assessment. Normal growth with EFW 2612 g at 15%ile. Normal CHASE at 15.4 cm. Cephalic presentation. I reviewed the ultrasound images. Gretchen was given the opportunity to meet with me if she had any questions. Please refer to the ultrasound report for additional details about today's ultrasound examination. RECOMMENDATIONS: Follow up with MFM for ultrasound as clinically indicated. See prior formal MFM consultation note. Thank you for allowing us to participate in the care of this patient. Please call with any questions. Nelda Avina DO 12/13/2023 12:50 PM documented in this encounter Plan of Treatment Upcoming Encounters Date Type Department Care Team (Late st Contact Info) Description 12/16/2023 10:00 AM EDT Nurse Only Gynecology/Obstetrics [facility] [address] [place] [address] Gw, Nurse Obgyn Injection [address] [place] [address] 12/20/2023 9:15 AM EDT Office Visit Gynecology/Obstetrics [facility] [address] [place] [address] Tabatha Funez PA-C [address] [place] [address] 12/27/2023 9:15 AM EDT Office Visit Gynecology/Obstetrics [facility] [address] [place] [address] Tabatha Funez PA-C [address] [place] [address] 01/01/2024 9:30 AM EDT Office Visit Gynecology/Obstetrics [facility] [address] [place] [address] Karol Beavers CRNP [address] [place] [address] 01/22/2024 12:50 PM EDT Telemedicine [facility] [address] [facility] [phone] Lelia Mendoza DO [address] [place] [address] Health Maintenance Due Date Last Done Comments Hepatitis B (1 of 3 - 19+ 3-dose series) 2005 HPV/Co-Test 2016 Influenza Vaccine (FLU shot) (Season Ended) 2024 06/28/2021, 06/16/2020, 07/16/2016, Additional history exists Cervical Cancer Screening 07/13/2024 Pap Smear 07/13/2024 07/13/2021, 10/31, 01/23/2016 GFR 12/12/2024 12/13/2023, 04/01/2024, 07/04/2023, Additional history exists Diabetes Screening 12/12/2026 [...] as of this encounter Visit Diagnoses Diagnosis Antepartum multigravida of advanced maternal age- Primary Chronic hypertension in Benign essential hypertension complicating , childbirth, and the puerperium, unspecified as to episode of care Ultrasound for screening for growth restriction screening for growth retardation using ultrasonics 37 weeks gestation of state, incidental documented in this encounter Care Teams Paving Contractor Relationship Specialty Start Date End Date Lelia Mendoza DO [address] [place] [address] PCP - General Family Medicine 10/14/23 documented as of this encounter
--- OUTSIDE RECORDS SUMMARY | 2023-12-27 08:54 | External Medical Summary | Summary of Care ---
Author Name Unknown Organization [facility] Address [address] [place] [address] Phone [phone] Care Team Providers Care Rn Team Leader Name Role Phone Lelia Mendoza DO Primary Care Provider [phone] Encounter Details Date Type Department Care Team (Late st Contact Info) Description 12/16/2023 Orders Only Outcomes Research Department [address] [place] [address] Saib Calvillo CHRA [employer] Research Other*[id number] Allergies Active Allergy Reactions Criticality Noted Date [...] assessment of proteinuria (24-hour urine protein or pcjmcme-iv-zftugugjya ratio) and CBC, serum AST/ALT/creatinine. If patient [...] Elevated BP at 14w Positive test 05/08/2023 11 documented as of this encounter (statuses as [...] have money to get more. Patient declined [place] Depression Scale Answer Date Recorded [place] Depression Scale Total 8 11/08/2023 The thought [...] 12/16/2023 10:00 AM EDT Nurse Only Gynecology/Obstetrics [facility] [address] [place], [place] [address] Gw, Nurse Obgyn Injection [address] [place] [address] 12/20/2023 9:15 AM EDT Office Visit Gynecology/Obstetrics [facility] [address] [place], [place] [address] Tabatha Funez PA-C [address] [place] [address] 12/27/2023 9:15 AM EDT Office Visit Gynecology/Obstetrics [facility] [address] [place], [place] [address] Tabatha Funez PA-C [address] [place] [address] 01/01/2024 9:30 AM EDT Office Visit Gynecology/Obstetrics [facility] [address] [place], [place] [address] Karol Beavers CRNP [address] [place] [address] 01/22/2024 12:50 PM EDT Telemedicine [facility] [address] [facility] [place] [phone] Lelia Mendoza DO [address] [facility] [place] [address] Scheduled Orders Name Type Priority Associated Diagnoses Orde r Schedule MYCODE SUBSEQUENT ADULT Lab Routine [employer] Other*[id number] Every 6 Months for 2 Occurrences starting 12/16/2023 until 01/04/2025 Health Maintenance Due Date Last Done Comments [...] this encounter Visit Diagnoses Diagnosis [employer] Other*[id number] documented in this encounter Care Teams Rn Team Leader Relationship Specialty Start Date End Date Lelia eMndoza DO [address] [place] [address] PCP - General Family Medicine 10/14/23 documented as of this encounter
--- OUTSIDE RECORDS SUMMARY | 2023-12-27 08:54 | External Medical Summary ---
Author Name Unknown Address Unknown Organization [id number]:LABORATORY [facility] [place] [facility] - [address] [place] [address] Laboratory Report Ordering Provider Test Date Status PATRICIA 12/20/2023 10:22:20 Final Observation Date Value Abnormality Reference (Units ) Status WBC, Total 12/20/2023 10:22:20 12.34 Above high normal 4 .00-10.80 (K/uL) Final RBC 12/20/2023 10:22:20 4.16 3.85-5.15 (M/uL) Final Hemoglobin 12/20/2023 10:22:20 13.1 12.0-15.3 (g/dL) Final HCT 12/20/2023 10:22:20 40.2 36.0-45.2 (%) Final MCV 12/20/2023 10:22:20 96.6 81.5-97.5 (fL) Final MCH 12/20/2023 10:22:20 31.5 27.0-34.0 (pg) Final MCHC 12/20/2023 10:22:20 32.6 32.0-36.0 (g/dL) Final RDW 12/20/2023 10:22:20 13.6 11.5-15.5 (%) Final Platelets 12/20/2023 10:22:20 244 140-400 (K /uL) Final MPV 12/20/2023 10:22:20 11.8 6.6-11.1 ( fL) Final Performing [facility] - [address] [place] [address]
--- OUTSIDE RECORDS SUMMARY | 2023-12-27 08:54 | External Medical Summary ---
Author Name Unknown Address Unknown Organization [id number]:LABORATORY [place] [facility] - [address] [place] [address] Laboratory Report Ordering Provider Test Date Status PATRICIA 12/20/2023 10:22:20 Final Observation Date Value Abnormality Reference (Units ) Status BUN 12/20/2023 10:22:20 11 6-20 (mg/dL) Final Creatinine 12/20/2023 10:22:20 0.7 0.5-1.0 (mg/dL) Final Glomerular filtration rate/1.73 sq M.predicted [Volume Rate/Area] in Serum, Plasma or Blood by Creatinine-based formula (CKD-EPI) 12/20/2023 10:22:20 >90 >=60 (mL/min) Final eGFR is calculated based on the CKD-EPI 2020 equation Sodium 12/20/2023 10:22:20 134 Below low normal 135 -146 (mmol/L) Final Potassium 12/20/2023 10:22:20 4.4 3.5-5.1 (m mol/L) Final Cl 12/20/2023 10:22:20 101 98-107 (mm ol/L) Final CO2 12/20/2023 10:22:20 21 Below low normal 22- 32 (mmol/L) Final Anion gap 12/20/2023 10:22:20 12 7-15 (mmol /L) Final Glucose 12/20/2023 10:22:20 84 70-120 (mg /dL) Final Albumin 12/20/2023 10:22:20 3.8 3.8-5.0 (g /dL) Final AST (Aspartate aminotransferase) 12/20/2023 10:22:20 20 10-35 (U/L) Fin al Alk Phos 12/20/2023 10:22:20 196 Above high normal 35 -130 (U/L) Final Bilirubin, Total 12/20/2023 10:22:20 0.2 <=1 .2 (mg/dL) Final Calcium 12/20/2023 10:22:20 8.7 8.4-10.2 ( mg/dL) Final Protein 12/20/2023 10:22:20 6.4 6.0-8.3 (g /dL) Final ALT (Alanine aminotransferase) 12/20/2023 10:22:20 15 10-35 (U/L) Donnell ortiz Performing Location LABORATORY [place] [address] - [address] [place] [address]
--- OUTSIDE RECORDS SUMMARY | 2023-12-27 08:54 | External Medical Summary | Summary of Care ---
Author Name Unknown Organization [facility] Address [address] [place] [address] Phone [phone] Care Team Providers Care Control Room Operator Name Role Phone Lelia Mendoza DO Primary Care Provider [phone] Encounter Details Date Type Department Care Team (Late st Contact Info) Description 12/13/2023 Telephone Gynecology/Obstetrics [facility] [address] [place] [address] Tabatha Funez PA-C [address] [place] [address] Allergies Active Allergy Reactions Criticality Noted Date [...] assessment of proteinuria (24-hour urine protein or hjqxfzp-is-fxgrmchodo ratio) and CBC, serum AST/ALT/creatinine. If patient [...] have money to get more. Patient declined [place] Depression Scale Answer Date Recorded [place] Depression Scale Total 8 11/08/2023 The thought [...] on file documented as of this encounter Miscellaneous Notes * Telephone Encounter - Kathia Adair RN - 12/13/2023 12:54 PM EDT Spoke with pt. Pt states that she is aware. She has her visit on Saturday for bp check already scheduled. She is aware that we will be doing an NST at each visit moving forward. Pt agreeable. * Telephone Encounter - Tabatha Funez PA-C - 12/13/2023 11:00 AM EDT Called patient following appointment LMOM. Reviewed with Dr. Bonilla. Would like to start her on medication given blood pressures to prevent further increase. I sent twice daily medication called Labetalol to pharmacy. Would like her to start now. Plan to see her back Saturday for BP check. Please call her back to let her know. Given meds will need to do once weekly NST until delivery. She will need scheduled for NST next week. We can leave IOL as scheduled, but may have to move up if we cannot control the blood pressures. Tabatha Funez PA-C documented in this encounter Plan of Treatment Upcoming Encounters Date Type Department Care Team (Late st Contact Info) Description 12/16/2023 10:00 AM EDT Nurse Only Gynecology/Obstetrics [facility] [address] [place] [address] Gw, Nurse Obgyn Injection [address] [place] [address] 12/20/2023 9:15 AM EDT [facility] [address] [place] [address] Tabatha Funez PA-C [address] [place] [address] 12/27/2023 9:15 AM EDT Office Visit Gynecology/Obstetrics [facility] [address] [facility] [place] [address] Tabatha Funez PA-C [address] [place] [address] 01/01/2024 9:30 AM EDT Office Visit Gynecology/Obstetrics [facility] [address] [place] [address] Karol Beavers CRNP [address] [place] [address] 01/22/2024 12:50 PM EDT Telemedicine [facility] [address] [place] [facility] [place] [id number] Lelia Mendoza DO [address] [place] [address] Health Maintenance Due Date Last Done Comments [...] Not on filedocumented as of this encounter Care Teams Control Room Operator Relationship Specialty Start Date End Date Lelia Mendoza DO [address] [place] [address] PCP - General Family Medicine 10/14/23 documented as of this encounter
--- OUTSIDE RECORDS SUMMARY | 2023-12-27 08:55 | External Medical Summary | Summary of Care ---
Author Name Unknown Organization [facility] Address [address] [place] [address] Phone [phone] Care Team Providers Care Pinion Polisher Name Role Phone Lelia Mendoza DO Primary Care Provider [phone] Reason for Visit * Reason Comments Return Visit Encounter Details Date Type Department Care Team (Late st Contact Info) Description 12/06/2023 8:30 AM EDT Office Visit Gynecology/Obstetric s [facility] [address] [place] [address] Priscilla Archer CRNP [address] [place] [address] High-risk in third trimester*; Primigravida of advanced maternal age in third trimester; Chronic hypertension in ; Antepartum multigravida of advanced maternal age Allergies Active Allergy Reactions Criticality Noted Date Comments Amoxicillin Rash 10/16/2016 Pollen 05/08/2023 documented as of this encounter (statuses as of 12/06/2023) Medications Medication Sig Dispensed Refills Start Date [...] as directed 1 Each 0 11/22/2023 Active Mupirocin 2 % External Ointment (Bactroban)Indicat ions:Acute sinusitis, recurrence not specified, unspecified location,Skin infection Apply topically to affected area 3 times a day for 14 days. To affected area for up to 14 days. 22 g 1 10/14/2023 12/06/2023 Discontinued documented as of this encounter (statuses as of 12/06/2023) Active Problems Problem Noted Date Diagnosed Date [...] 130s / high 80's to low 90's Considerations: Women with chronic hypertension during are at significantly increased risk for morbidity. Signs and symptoms of superimposed pre-eclampsia were reviewed; instructed patient to contact primary OB care provider if these symptoms occur. Recommendations: Obtain baseline lab work SCOTTIE (if not already done) with assessment of proteinuria (24-hour urine protein or bqoaixd-zp-gbjretnnyf ratio) and CBC, serum AST/ALT/creatinine. If patient [...] consider medications if consistent values > 140/90. Elderly primigravida 05/08/2023 Chronic intractable headache 02/05/2022 Allergic rhinitis 02/05/2022 Recurrent major depressive disorder, in partial remission 12/05/2021 Estimated Date of Delivery Comme nts Yes 01/02/2024 Based on last me nstrual period of 03/28/2023 (Exact Date), 03/28 - 03/31 was LMP documented as of this encounter (statuses as of 12/06/2023) Resolved Problems Problem Noted Date Diagnosed Date [...] as of this encounter (statuses as of 12/06/2023) Immunizations Name Administration Dates Next Due COVID-19 mRNA, LNP-s, No Pre serve, 2-Dose Series (CIQUAL) 10/01/2020,09/10/2020 DTWP - Dipth/Tet/Whole Cell Pertussis 04/02/2005 [...] have money to get more. Patient declined [place] Depression Scale Answer Date Recorded [place] Depression Scale Total 8 11/08/2023 The thought [...] Sign Reading Time Taken Comments Blood Pressure 138/82 12/06/2023 8:18 AM EDT Pulse - - Temperature - - Respiratory Rate - - Oxygen Saturation - - Inhaled Oxygen Concentration - - Weight 87.1 kg (192 lb) 12/06/2023 8:18 AM EDT Height - - Body Mass Index 34.01 10/25/2023 11:12 AM EST documented in this encounter Progress Notes * Priscilla Archer CRNP - 12/06/2023 8:23 AM EDT 36w1d Baby is active. No regular ctx, leaking, bleeding. GBS swab today. Normal growth with MFM 11/13. Scheduled for repeat growth next week. BP is stable off medication. Denies new LAROSE, vision changes, epigastric pain. Discussed delivery recommendations, IOL scheduled. She is aware this may be sooner if her or baby'scondition changed. No thoughts on contraception yet - will likely want another relativelysoon. 1 week return, sooner prn. Reviewed FKC and preE signs. +1 proteinuria, will check preE labs today. Stained Glass Window Designer Documentation Provider requested emblem fuser tender. Name of emblem fuser tender: AIDE Hull LPN * Adalberto Florez LPN - 12/06/2023 8:19 AM EDT 36w1d Denies vaginal bleeding/rom + movement documented in this encounter Miscellaneous Notes * Addendum Note - Adalberto Florez LPN - 12/06/2023 8:59 AM EDTAddended by: ADALBERTO FLOREZ on: 12/06/2023 08:59 AM Modules accepted: Orders documented in this encounter Plan of Treatment Upcoming Encounters Date Type Department Care Team (Late st Contact Info) Description 12/06/2023 10:30 AM EDT Office Visit [facility] [address] [facility], [place] [address] Lelia Mendoza DO [address] [facility], [place] [address] 12/12/2023 8:45 AM EDT Imaging Maternal Medicine Imaging, [facility] [address] [place] [address] 12/13/2023 9:00 AM EDT Office Visit Gynecology/Obstetrics [facility] [address] [place] [address] Tabatha Funez PA-C [address] [place] [address] 12/20/2023 9:15 AM EDT Office Visit Gynecology/Obstetrics [facility] [address] [place] [address] Tabatha Funez PA-C [address] [place] [address] 12/27/2023 9:15 AM EDT Office Visit Gynecology/Obstetrics N[facility] [address] [place] [address] Tabatha Funez PA-C [address] [place] [address] 01/01/2024 9:30 AM EDT Office Visit Gynecology/Obstetrics [facility] [address] [place] [address] Karol Beavres CRNP [address] [place] [address] Pending Results Name Type Priority Associated Diagnoses Date /Time GROUP B STREP CULTURE/PCR Lab Routine High-risk in third trimester 12/06/2023 9:19 AM EDT PROTEIN/ CREATININE RATIO, URINE Lab Routine Chronic hypertension in 12/06/2023 8:54 AM EDT CBC Lab Routine Chronic hypertension in 12/06/2023 8:47 AM EDT HEPATIC FUNCTION PANEL Lab Routine Chronic hypertension in 12/06/2023 8:47 AM EDT CREATININE Lab Routine Chronic hypertension in 12/06/2023 8:47 AM EDT Scheduled Orders Name Type Priority Associated Diagnoses Orde r Schedule PROTEIN/ CREATININE RATIO, URINE Lab Routine Chronic hypertension in Expected: 12/06/2023 (Approximate), Expires: 12/05/2024 CBC Lab Routine Chronic hypertension in Expected: 12/06/2023 (Approximate), Expires: 12/05/2024 HEPATIC FUNCTION PANEL Lab Routine Chronic hypertension in Expected: 12/06/2023 (Approximate), Expires: 12/05/2024 CREATININE Lab Routine Chronic hypertension in Expected: 12/06/2023 (Approximate), Expires: 12/05/2024 Health Maintenance Due Date Last Done Comments Hepatitis B (1 of 3 - 19+ 3-dose series) 2005 HPV/Co-Test 2016 Diabetes Screening 08/23/2023 08/23/2020, 1 10/24/2019, 05/15/2017, Additional history exists Influenza Vaccine (FLU shot) (Season Ended) 2024 06/28/2021, 06/16/2020, 07/16/2016, Additional history exists GFR 07/04/2024 07/04/2023, 08/03, 05/15/2017, Additional history exists Cervical Cancer Screening 07/13/2024 Pap Smear 07/13/2024 07/13/2021, 10/31, 01/23/2016 Depression Screening 11/07/2024 11/08/2023 DTaP,Tdap,and Td Vaccines (4 - Td or [...] Procedure Name Priority Date/Time Associated Diagnosis Comments URINALYSIS, POINT OF CARE (ENTER/EDIT) Routine 12/06/2023 High-risk in third trimester documented in this encounter Results * URINALYSIS, POINT OF CARE (ENTER/EDIT) (12/06/2023) Color, Urine Yellow Yellow or Light Yellow Clarity, Urine Clear Clear Glucose, Urine Negative Negative mg/dL Bilirubin, Urine Negative Negative Ketone, Urine Negative Negative mg/dL Specific [place], Urine 1.030 1.003 - 1.030 Blood, Urine Trace-intact Negative pH, Urine 6.0 5.0 - 7.5 units Protein, Urine 30 Negative mg/dL Urobilinogen, Urine 0.2 0.2 - 1.0 mg/dL Nitrite, Urine Negative Negative Esterase, Urine Small Negative Urine 12/06/2023 Priscilla [facility]BLE [facility] POINT O F CARE TEST ENTER/EDIT ORDERABLES documented in this encounter Visit Diagnoses Diagnosis High-risk in third trimester- Primary Primigravida of advanced maternal age in third trimester Chronic hypertension in Benign essential hypertension complicating , childbirth, and the puerperium, unspecified as to episode of care Antepartum multigravida of advanced maternal age documented in this encounter Care Teams Pinion Polisher Relationship Specialty Start Date End Date Lelia Mendoza DO [address] [place] [address] PCP - General Family Medicine 10/14/23 documented as of this encounter
--- OUTSIDE RECORDS SUMMARY | 2023-12-27 08:55 | External Medical Summary | Summary of Care ---
Author Name Unknown Organization [facility] Address [address] [place] [address] Phone [phone] Care Team Providers Care Linker Up Name Role Phone Lelia Mendoza DO Primary Care Provider [phone] Reason for Visit * Reason Comments NEW PATIENT Was on sertraline pr ior to and would like to discuss how to get back on it after And then after care for when she has her baby Encounter Details Date Type Department Care Team (Late st Contact Info) Description 12/06/2023 10:30 AM EDT Office Visit [place] [address] [place] [address] Lelia Mendoza, [address] [place] [address] Recurrent major depressive disorder, in partial remission (HCC)*; Encounter for screening mammogram for breast cancer; Family history of breast cancer Allergies Active Allergy Reactions Criticality Noted Date [...] assessment of proteinuria (24-hour urine protein or eokyspt-cu-gqwbjcownq ratio) and CBC, serum AST/ALT/creatinine. If patient [...] mRNA, LNP-s, No Pre serve, 2-Dose Series ([employer]) 10/01/2020,09/10/2020 DTWP - Dipth/Tet/Whole Cell Pertussis 04/02/2005 [...] Date Smoking Tobacco: Never Smokeless Tobacco: Never Tobacco Cessation:Counseling Given: Not Answered Comments:No passive smoke exposures Alcohol Use Standard Drinks/Week Comments Not Currently [...] have money to get more. Patient declined [place] Depression Scale Answer Date Recorded [place] Depression Scale Total 8 11/08/2023 The thought [...] Sign Reading Time Taken Comments Blood Pressure 138/84 12/06/2023 10:15 AM EDT Pulse 114 12/06/2023 10:15 AM EDT Temperature 36.9 C (98.4 F) 12/06/2023 1 0:15 AM EDT Respiratory Rate 16 12/06/2023 10:1 5 AM EDT Oxygen Saturation 97% 12/06/2023 10: 15 AM EDT Inhaled Oxygen Concentration - - Weight 87.5 kg (192 lb 14.4 oz) 024 10:15 AM EDT Height 157.5 cm (5' 2") 12/06/2023 10:1 5 AM EDT Body Mass Index 35.28 12/06/2023 10:15 AM EDT documented in this encounter Progress Notes * Lelia Mendoza, - 12/06/2023 10:38 AM EDT Subjective: Gretchen Mosquera is a 38 year old female. Chief Complaint Patient presents with NEW PATIENT Was on sertraline prior to and would like to discuss how to get back on it after And then after care for when she has her baby HPI: 38 year old female here today as a new patient. She stopped zoloft prior to her 25mg daily and is wondering if she should resume after baby. Induction date for December 25. Carries hx of anxiety prior and worsened after both grandparents passed and COVIDforced a job/career change. This is her first baby. Working at [employer] in [employer]. Maternal grandmother with breast cancer. Mom got tested for BRCA gene and this was negative. Will need mammogram after and after nursing if this occurs. Reviewed family hx, surgery, medications, allergies, and social hx. PHM: Patient Active Problem List Diagnosis Code Recurrent major depressive disorder, in partial remission (HCC) F33.41 Chronic intractable headache R51.9, G89.29 Allergic rhinitis J30.9 Elderly primigravida O09.519 Chronic hypertension in O10.919 Antepartum multigravida of advanced maternal age O09.529 High-risk O09.90 Current Outpatient Medications Medication Sig Dispense Refill Vit-Fe Fumarate-FA ( VITAMIN) 27-0.8 MG TABS Take by mouth. Vitamin D (Cholecalciferol) 25 MCG (1000 UT) Oral Capsule Take by mouth . Lactaid Fast Act 9000 UNIT Oral Tablet (Lactase) Take by mouth. Aspirin 81 MG Oral Tablet Delayed Release Take 1 Tablet by mouth in the morning. Breast Pump Use as directed 1 Each 0 No current facility-administered medications for this visit. Review of patient's allergies indicates: Allergen Reactions Amoxicillin Rash Pollen Objective: BP 138/84 | Pulse 114 | Temp 36.9 C (98.4 F) | Resp 16 | Ht 1.575 m (5' 2") | Wt 87.5 kg (192 lb 14.4 oz) | LMP 03/28/2023 (Exact Date) Comment: 03/28 - 03/31 was LMP | SpO2 97% | BMI 35.28 kg/m | BSA 1.96 m Physical Exam: General: alert, healthy, and no distress Heart: no murmur, no gallops, and tachycardia Lungs: chest symmetric with normal AP diameter, no chest deformities noted, no chest wall tenderness, lungs clear to auscultation Abdomen: abdomen soft, non-tender, normal bowel sounds, no masses or organomegaly, and Extremities: no edema, no calf tenderness ASSESSMENT/PLAN: Recurrent major depressive disorder, in partial remission (HCC) (Primary) - Sertraline HCl 25 MG Oral Tablet (Zoloft); Take 1 Tablet by mouth in the morning. I suggested to resume within the next 1-2 weeks given hx of anxiety prior to . She will think about it. I did provide a rx today. Encounter for screening mammogram for breast cancer - MAMMOGRAM SCREENING BILATERAL; Future; Expected date: 12/06/2023 Maternal GM with breast cancer, will need mammogram after baby. Family history of breast cancer - MAMMOGRAM SCREENING BILATERAL; Future; Expected date: 12/06/2023 Check-out note: Arrange telemed appt in mid to late December Lelia Mendoza DO documented in this encounter Nursing Notes * Shantelle Zamudio LPN - 12/06/2023 10:20 AM EDT The patient has been properly identified by confirmation of name and date of . Chief Complaint Patient presents with NEW PATIENT Was on sertraline prior to and would like to discuss how to get back on it after And then after care for when she has her baby documented in this encounter Plan of Treatment Upcoming Encounters Date Type Department Care Team (Late st Contact Info) Description 12/12/2023 8:45 AM EDT Imaging Maternal Medicine Imaging, Al[facility] Vasques [address] [place] [address] 12/13/2023 9:00 AM EDT Office Visit Gynecology/Obstetrics [facility] [address] [place] [address] Tabatha Funez PA-C [address] [place] [address] 12/20/2023 9:15 AM EDT Office Visit Gynecology/Obstetrics [facility] [address] [place] [address] Tabatha Funez PA-C [address] [place] [address] 12/27/2023 9:15 AM EDT Office Visit Gynecology/Obstetrics N[facility] Vasques [address] [place] [address] Tabatha Funez PA-C [address] [place] [address] 01/01/2024 9:30 AM EDT Office Visit Gynecology/Obstetrics [facility] [address] [place] [address] Karol Beavers CRNP [address] [place] [address] 01/22/2024 12:[address] [facility] [address] [place] [address] Lelia Mendoza DO [address] [place] [address] Scheduled Orders Name Type Priority Associated Diagnoses Orde r Schedule MAMMOGRAM SCREENING BILATERAL Medical Imaging Routine Encounter for screening mammogram for breast cancer Family history of breast cancer Expected: 12/06/2023, Expires: 01/04/2025 Health Maintenance Due Date Last Done [...] as of this encounter Visit Diagnoses Diagnosis Recurrent major depressive disorder, in partial remission (HCC)- Primary Encounter for screening mammogram for breast cancer Family history of breast cancer Family history of malignant neoplasm of breast documented in this encounter Care Teams Linker Up Relationship Specialty Start Date End Date Lelia Mendoza DO [address] [place], [place] [phone] PCP - General Family Medicine 10/14/23 documented as of this encounter
--- OUTSIDE RECORDS SUMMARY | 2023-12-27 08:55 | External Medical Summary | Summary of Care ---
Author Name Unknown Organization [facility] Address [address] [place] [address] Phone [phone] Care Team Providers Care Electrician Yard Name Role Phone Lelia Mendoza DO Primary Care Provider [phone] Reason for Visit * Reason Comments Outpatient Testing Encounter Details Date Type Department Care Team (Late st Contact Info) Description 12/13/2023 10:40 AM EDT Laboratory Laboratory, [facility] [address] [place] [phone] [facility] [address] [place] [address] Arrived Allergies Active Allergy Reactions Criticality Noted Date [...] assessment of proteinuria (24-hour urine protein or snqzavi-km-mvfxeonwyt ratio) and CBC, serum AST/ALT/creatinine. If patient [...] have money to get more. Patient declined [place] Depression Scale Answer Date Recorded [place] Depression Scale Total 8 11/08/2023 The thought [...] 12/16/2023 10:00 AM EDT Nurse [facility] [address] [place] [address] Gw, Nurse Obgyn Injection [address] [place] [address] 12/20/2023 9:15 AM EDT Office Visit Gynecology/Obstetrics [facility] [address] [place] [address] Tabatha Funez PA-C [address] [place] [address] 12/27/2023 9:15 AM EDT Office Visit [facility]cology[facility]st[facility]s [facility] [address] [place] [address] Tabatha Funez PA-C [address] [place] [address] 01/01/2024 9:30 AM EDT Office Visit Gynecology[facility]Obstetrics [facility] [address] [place] [address] Karol Beavers CRNP [address] [place] [address] 01/22/2024 12:50 PM EDT Telemedicine [place] [address] [facility] [place] [phone] Lelia Mendoza DO [address] [place] [address] Health Maintenance Due Date Last Done Comments Hepatitis B (1 of 3 - 19+ 3-dose series) 2005 HPV/Co-Test 2016 Diabetes Screening 08/23/2023 08/23/2020, 1 10/24/2019, 05/15/2017, Additional history exists Influenza Vaccine (FLU shot) (Season Ended) 2024 06/28/2021, 06/16/2020, 07/16/2016, Additional history exists Cervical Cancer Screening 07/13/2024 Pap Smear 07/13/2024 07/13/2021, 10/31, 01/23/2016 GFR 12/05/2024 12/06/2023, 10/2022, 08/23/2020, Additional history exists DTaP,Tdap,and Td Vaccines [...] filedocumented as of this encounter Care Teams Electrician Yard Relationship Specialty Start Date End Date [facility]endoza [facility] [address] [facility] [place] [address] PCP - General Family Medicine 10/14/23 documented as of this encounter
--- OUTSIDE RECORDS SUMMARY | 2023-12-27 08:55 | External Medical Summary | Summary of Care ---
Author Name Unknown Organization [facility] Address [address] [place] [address] Phone [phone] Care Team Providers Care Engine Room Helper Name Role Phone Lelia Mendoza DO Primary Care Provider [phone] Reason for Visit * Reason Comments Return Visit Encounter Details Date Type Department Care Team (Late st Contact Info) Description 12/06/2023 8:30 AM EDT Office Visit Gynecology/Obstetric s Nara Vasques [address] [place] [address] Priscilla Archer CRNP [address] [place] [address] High-risk in third trimester*; Primigravida of advanced [...] assessment of proteinuria (24-hour urine protein or qkdecfy-fu-semifaqlxm ratio) and CBC, serum AST/ALT/creatinine. If patient [...] mRNA, LNP-s, No Pre serve, 2-Dose Series ([employer]) 10/01/2020,09/10/2020 DTWP - Dipth/Tet/Whole Cell Pertussis 04/02/2005 [...] have money to get more. Patient declined [place] Depression Scale Answer Date Recorded [place] Depression Scale Total 8 11/08/2023 The thought [...] +1 proteinuria, will check preE labs today. Bunk Assembler Documentation Provider requested hospital ward clerk. Name of hospital ward clerk: AIDE Hull LPN * Adalberto Florez LPN - 12/06/2023 8:19 AM EDT 36w1d Denies vaginal bleeding/rom + movement documented in this encounter Miscellaneous Notes * Addendum Note - Adalebrto Florez LPN - 12/06/2023 8:59 AM EDTAddended by: ADALBERTO FLOREZ on: 12/06/2023 08:59 AM Modules accepted: Orders documented in this encounter Plan of Treatment Upcoming Encounters Date Type Department Care Team (Late st Contact Info) Description 12/06/2023 10:30 AM EDT Office Visit [facility] [address] [facility], [place] [address] Lelia Mendoza DO [address] [facility], [place] [address] 12/12/2023 8:45 AM EDT Imaging Maternal Medicine Imaging, Alma Snyders [address] [place] [address] 12/13/2023 9:00 AM EDT Office Visit Gynecology/Obstetrics Nara Snyders [address] [place] [address] Tabatha Funez PA-C [address] [place] [address] 12/20/2023 9:15 AM EDT Office Visit Gynecology/Obstetrics Nara Snyders [address] [place] [address] Tabatha Funez PA-C [address] [place] [address] 12/27/2023 9:15 AM EDT Office Visit Gynecology/Obstetrics Nara Snyders [address] [place] [address] Tabatha Funez PA-C [address] [place] [address] 01/01/2024 9:30 AM EDT Office Visit Gynecology/Obstetrics Nara Vasques [address] [place] [address] Karol Beavers CRNP [address] [place] [address] Pending Results Name Type Priority Associated Diagnoses Date /Time GROUP B STREP CULTURE/PCR Lab Routine High-risk in third trimester 12/06/2023 9:19 AM EDT PROTEIN/ CREATININE RATIO, URINE Lab Routine Chronic hypertension in 12/06/2023 8:54 AM EDT HEPATIC FUNCTION PANEL Lab Routine [...] trimester documented in this encounter Results * (ABNORMAL) CBC (12/06/2023 8:47 AM EDT) WBC 12.80(H) 4.00 - 10.80 K/uL 12/06/2023 9:31 AM EDT LABORATORY [place]10 RBC 4.21 3.85 - 5.15 M/uL 12/06/2023 9:31 AM EDT LAB[facility]ATORY [place] 57[facility]10 HGB 13.5 12.0 - 15.3 g/dL 12/06/2023 9:31 AM EDT LAB[facility]ATORY [place] [facility]10 HCT 40.5 36.0 - 45.2 % 12/06/2023 9:31 AM EDT LAB[facility]ATORY [place] [facility]10 MCV 96.2 81.5 - 97.5 fL 12/06/2023 9:31 AM EDT LAB[facility]ORY [place] [facility]10 MCH 32.1 27.0 - 34.0 pg 12/06/2023 9:31 AM EDT LAB[facility]ORY [place] [facility]10 MCHC 33.3 32.0 - 36.0 g/dL 12/06/2023 9:31 AM EDT LAB[facility]ORY [place] [facility]10 RDW 13.6 11.5 - 15.5 % 12/06/2023 9:31 AM EDT LAB[facility]ATORY [place] [facility]10 PLT 249 140 - 400 K/uL 12/06/2023 9:31 AM EDT LAB[facility]ORY [place] [facility]10 MPV 11.7 6.6 - 11.1 fL 12/06/2023 9:31 AM EDT LAB[facility]ATORY [place] [facility]10 Blood Venous blood specimen / Unknown Venipuncture / Unknown 12/06/2023 8:47 AM EDT 12/06/2023 8:47 AM EDT Priscilla NOBLE LAB BLOOD O RDERABLES LABORATORY [place] 57-10 [address] [address] * URINALYSIS, POINT OF CARE (ENTER/EDIT) (12/06/2023) Color, Urine Yellow Yellow or Light Yellow Clarity, Urine Clear Clear Glucose, Urine Negative Negative mg/dL Bilirubin, Urine Negative Negative Ketone, Urine Negative Negative mg/dL Specific [place], Urine 1.030 1.003 - 1.030 Blood, Urine [...] age documented in this encounter Care Teams Engine Room Helper Relationship Specialty Start Date End Date Lelia Mendoza [facility] [address] [facility] [address] PCP - General Family Medicine 10/14/23 documented as of this encounter
--- OUTSIDE RECORDS SUMMARY | 2023-12-27 08:55 | External Medical Summary | Summary of Care ---
Author Name Unknown Organization [facility] Address [address] [place] [address] Phone [phone] Care Team Providers Care Linoleum Floor Installer Name Role Phone Lelia Mendoza DO Primary Care Provider [phone] Encounter Details Date Type Department Care Team (Late st Contact Info) Description 11/22/2023 Telephone Gynecology/Obstetrics [facility] [address] [place] [address] Margoth Ding, [facility] [address] [place] [address] Allergies Active Allergy Reactions Criticality Noted Date [...] as directed 1 Each 0 11/22/2023 Active documented as of this encounter (statuses [...] assessment of proteinuria (24-hour urine protein or tkipsgm-bg-fmwxfbweui ratio) and CBC, serum AST/ALT/creatinine. If patient [...] mRNA, LNP-s, No Pre serve, 2-Dose Series ([employer]) 10/01/2020,09/10/2020 DTWP - Dipth/Tet/Whole Cell Pertussis 04/02/2005 [...] have money to get more. Patient declined [place] Depression Scale Answer Date Recorded [place] Depression Scale Total 8 11/08/2023 The thought [...] encounter Miscellaneous Notes * Telephone Encounter - Audrey Davis LPN - 11/22/2023 12:45 PM EDT ----- Message from Margoth Ding CNM sent at 11/22/2023 12:24 PM EDT ----- Please let patient know her urinalysis showed trace protein and glucose and blood, but was otherwise normal. Thanks! Margoth Ding CNM documented in this encounter Plan of Treatment Upcoming Encounters Date Type Department Care Team (Late st Contact Info) Description 12/06/2023 10:30 AM EDT Office Visit [facility] [address] [facility], [place] [address] Lelia Mendoza DO [address] [facility], [place] [address] 12/12/2023 8:45 AM EDT Imaging Maternal Medicine Imaging, Alma Vasques [address] [place] [address] 12/13/2023 9:00 AM EDT Office Visit Gynecology/Obstetrics Nara Vasques [address] [place] [address] Tabatha Funez PA-C [address] [place] [address] 12/20/2023 9:15 AM EDT Office Visit Gynecology/Obstetrics Nara Snyders [address] [place] [address] Tabatha Funez PA-C [address] [place] [address] 12/27/2023 9:15 AM EDT Office Visit Gynecology/Obstetrics Nara Snyders [address] [place] [address] Tabatha Funez PA-C [address] [place] [address] 01/01/2024 9:30 AM EDT Office Visit Gynecology/Obstetrics Nara Vasques [address] [place] [address] Karol Beavers CRNP [address] [place] [address] Health Maintenance Due Date Last Done Comments [...] filedocumented as of this encounter Care Teams Linoleum Floor Installer Relationship Specialty Start Date End Date Lelia Mendoza DO [address] [place] [address] PCP - General Family Medicine 10/14/23 documented as of this encounter
--- OUTSIDE RECORDS SUMMARY | 2023-12-27 08:55 | External Medical Summary ---
Author Name Unknown Address Unknown Organization [id number]:LABORATORY [facility] [place] [facility] - [address] [place] [address] Laboratory Report Ordering Provider Test Date Status PATRICIA 12/13/2023 10:25:26 Final Observation Date Value Abnormality Reference (Units ) Status WBC, Total 12/13/2023 10:25:26 12.50 Above high normal 4 .00-10.80 (K/uL) Final RBC 12/13/2023 10:25:26 4.05 3.85-5.15 (M/uL) Final Hemoglobin 12/13/2023 10:25:26 13.0 12.0-15.3 (g/dL) Final HCT 12/13/2023 10:25:26 38.4 36.0-45.2 (%) Final MCV 12/13/2023 10:25:26 94.8 81.5-97.5 (fL) Final MCH 12/13/2023 10:25:26 32.1 27.0-34.0 (pg) Final MCHC 12/13/2023 10:25:26 33.9 32.0-36.0 (g/dL) Final RDW 12/13/2023 10:25:26 13.5 11.5-15.5 (%) Final Platelets 12/13/2023 10:25:26 236 140-400 (K /uL) Final MPV 12/13/2023 10:25:26 11.4 6.6-11.1 ( fL) Final [facility] - [address] [place] [address]
--- OUTSIDE RECORDS SUMMARY | 2023-12-27 08:55 | External Medical Summary | Summary of Care ---
Author Name Unknown Organization [facility] Address [address] [place] [address] Phone [phone] Care Team Providers Care Divisional Storekeeper Name Role Phone Lelia Mendoza DO Primary Care Provider [phone] Reason for Visit * Reason Comments Return Visit Encounter Details Date Type Department Care Team (Late st Contact Info) Description 12/13/2023 9:00 AM EDT Office Visit Gynecology/Obstetric s Nara Vasques [address] [place] [address] Tabatha Funez PA-C [address] [place] [address] High-risk in third trimester*; Primigravida of advanced [...] assessment of proteinuria (24-hour urine protein or yabvfrs-vy-feksqizwie ratio) and CBC, serum AST/ALT/creatinine. If patient [...] mRNA, LNP-s, No Pre serve, 2-Dose Series ([employer] 10/01/2020,09/10/2020 DTWP - Dipth/Tet/Whole Cell Pertussis 04/02/2005 [...] have money to get more. Patient declined [place] Depression Scale Answer Date Recorded [place] Depression Scale Total 8 11/08/2023 The thought [...] Sign Reading Time Taken Comments Blood Pressure 142/88 12/13/2023 8:51 AM EDT rec heck 144/90 Pulse - - Temperature - - Respiratory Rate - - Oxygen Saturation - - Inhaled Oxygen Concentration - - Weight 88.9 kg (196 lb) 12/13/2023 8:51 AM EDT Height 157.5 cm (5' 2") 12/13/2023 8:51 AM EDT Body Mass Index 35.85 12/13/2023 8:51 AM EDT documented in this encounter Progress Notes * Tabatha Funez PA-C - 12/13/2023 9:16 AM EDT 37w1d Had growth with MFM yesterday.. Baby no longer growth restricted as of 11/14/2023. CHTN not on medication: BP elevated 142/88, did not improve on recheck. Pt states checks home BP's 130-139, pt states rare 100's for diastolic. Denies h/a, vision changes, RUQ pain, CP, or SOB. Traceprotein by site dip as she has had in the past visit. Baby tachy with doppler -- NST in follow up Denies contractions, LOF, VB. Pos fm. ASSESSMENT assessment with Non-stress Test completed on 12/13/2023 at 37.1 for tachycardia. heart baseline: Initially 180 bpm with first 10 minutes, pt hydrated and baseline heart rate 140 bpm Variability: Moderate Decelerations: absent Accelerations: present Contractions: None NST start time: 09:19 AM NST stop time: 10:05 AM NST strip reviewed, interpreted, and approved by OB provider, Tabatha Funez PA-C. NST strip stored in clinic storage file A/P: Asymptomatic. Recommend repeat PEC labs today. PEC precautions reviewed. Reviewed with Dr. Bonilla, will plan to start on medication. Labetalol 200 mg BID sent to pharmacy. See encounters. Given BP today, recommend return in 3 days for VASU/BP check Will need weekly NST starting now. Delivery between 37 0/6 and 39 6/6. She is IOL scheduled 12/26/2023 at 39w0d. Tabatha Funez PA-C * Heidi Hope LPN - 12/13/2023 8:56 AM EDT 37w1d Questions about iol documented in this encounter Plan of Treatment Upcoming Encounters Date Type Department Care Team (Late st Contact Info) Description 12/16/2023 10:00 AM EDT Nurse Only Gynecology/Obstetrics [facility] [address] [place] [address] Gw, Nurse Obgyn Injection [address] [place] [address] 12/20/2023 9:15 AM EDT Office Visit Gynecology/Obstetrics [facility] [address] [place] [address] Tabatha Funez PA-C [address] [place] [address] 12/27/2023 9:15 AM EDT Office Visit Gynecology/Obstetrics [facility] [address] [place] [address] Tabatha Funez PA-C [address] [place] [address] 01/01/2024 9:30 AM EDT Office Visit Gynecology/Obstetrics [facility] [address] [place] [address] Karol Beavers CRNP [address] [place] [address] 01/22/2024 12:50 PM EDT Telemedicine [facility] [address] [place] [phone] Lelia Mendoza DO [address] [place] [address] Pending Results Name Type Priority Associated Diagnoses Date /Time PROTEIN/ CREATININE RATIO, URINE Lab Routine Chronic hypertension in 12/13/2023 9:19 AM EDT Health Maintenance Due Date Last [...] Associated Diagnosis Comments COMPREHENSIVE METABOLIC PANEL Routine 12/13/2023 10:25 AM EDT Chronic hypertension in CBC Routine 12/13/2023 10:25 AM EDT Chronic hypertension in documented in this encounter Results * (ABNORMAL) CBC (12/13/2023 10:25 AM EDT) WBC 12.50(H) 4.00 - 10.80 K/uL 12/13/2023 10:44 AM EDT LABORATORY [place] [facility]10 RBC 4.05 3.85 - 5.15 M/uL 12/13/2023 10:44 AM EDT LABORATORY [place] 57[place]10 HGB 13.0 12.0 - 15.3 g/dL 12/13/2023 10:44 AM EDT LAB[facility]ORY [place] 57[facility]10 HCT 38.4 36.0 - 45.2 % 12/13/2023 10:44 AM EDT LAB[facility]ATORY [place] 57[place]10 MCV 94.8 81.5 - 97.5 fL 12/13/2023 10:44 AM EDT LABORATORY [place] 57[facility]10 MCH 32.1 27.0 - 34.0 pg 12/13/2023 10:44 AM EDT LAB[facility]ATORY [place] [facility]10 MCHC 33.9 32.0 - 36.0 g/dL 12/13/2023 10:44 AM EDT LABORATORY [place] [facility]10 RDW 13.5 11.5 - 15.5 % 12/13/2023 10:44 AM EDT LAB[facility]ATORY [place] [facility]10 PLT 236 140 - 400 K/uL 12/13/2023 10:44 AM EDT LAB[facility]ATORY [place] 57[facility]10 MPV 11.4 6.6 - 11.1 fL 12/13/2023 10:44 AM EDT LABORATORY [place] 57-10 Blood Venous blood specimen / Unknown Venipuncture / Unknown 12/13/2023 10:25 AM EDT 12/13/2023 10:25 AM EDT Tabatha Funez PA-C LAB BLOOD ORDERABLES LABORATORY [place] [address] [place] [address] * (ABNORMAL) COMPREHENSIVE METABOLIC PANEL (12/13/2023 10:25 AM EDT) BUN 8 6 - 20 mg/dL 12/13/2023 11:45 AM EDT LABORATORY [place] [facility]10 Creatinine 0.6 0.5 - 1.0 mg/dL 12/13/2023 11:45 AM EDT LABORATORY [place] 57-10 Estimated Glomerular Filtration Rate >90 >=60 mL/min 12/13/2023 11:45 AM EDT LABORATORY [place] 57-10 Comment:eGFR is calculated b ased on the CKD-EPI 2020 equation Sodium 135 135 - 146 mmol/L 12/13/2023 11:45 AM EDT LABORATORY [place] [facility]10 Potassium 4.5 3.5 - 5.1 mmol/L 12/13/2023 11:45 AM EDT LABORATORY [place] 57[facility]10 Chloride 102 98 - 107 mmol/L 12/13/2023 11:45 AM EDT LAB[facility]ATORY [place] 57[facility]10 CO2 18(L) 22 - 32 mmol/L 12/13/2023 11:45 AM EDT LABORATORY [place] 57-10 Anion Gap 15 7 - 15 mmol/L 12/13/2023 11:45 AM EDT [facility] Glucose 58(L) 70 - 120 mg/dL 12/13/2023 11:45 AM EDT LABORATORY [place] 57-10 Albumin 3.7(L) 3.8 - 5.0 g/dL 12/13/2023 11:45 AM EDT LABORATORY [place] 57[facility]10 AST 19 10 - 35 U/L 12/13/2023 11:45 AM EDT LAB[facility]ATORY [place] 57[facility]10 Alkaline Phosphatase 180(H) 35 - 130 U/L 12/13/2023 11:45 AM EDT LAB[facility]ATORY [place] 57[facility]10 Bilirubin, Total <0.2 <=1.2 mg/dL 12/13/2023 11:45 AM EDT LAB[facility]ATORY [place] 57[facility]10 Calcium 10.1 8.4 - 10.2 mg/dL 12/13/2023 11:45 AM EDT LAB[facility]ATORY [place] 57[facility]10 Protein 6.3 6.0 - 8.3 g/dL 12/13/2023 11:45 AM EDT LAB[facility]ATORY [place] 57[facility]10 ALT 15 10 - 35 U/L 12/13/2023 11:45 AM EDT LAB[facility]ATORY [place] 57[facility]10 Blood Venous blood specimen / Unknown Venipuncture / Unknown 12/13/2023 10:25 AM EDT 12/13/2023 10:25 AM EDT Tabatha Funez PA-C LAB BLOOD ORDERABLES LAB[facility]ATORY [facility] [place] [facility] [facility] [place] [address] documented in this encounter Visit Diagnoses Diagnosis High-risk in third trimester- Primary Primigravida of advanced maternal age in third trimester Chronic hypertension in Benign essential hypertension complicating , childbirth, and the puerperium, unspecified as to episode of care Antepartum multigravida of advanced maternal age documented in this encounter Care Teams Divisional Storekeeper Relationship Specialty Start Date End Date Lelia Mendoza DO [address] [place] [address] PCP - General Family Medicine 10/14/23 documented as of this encounter
--- OUTSIDE RECORDS SUMMARY | 2023-12-27 08:55 | External Medical Summary ---
Author Name Unknown Address Unknown Organization K0G:LABORATORY [place] [address] - [address] [place] [address] Laboratory Report Ordering Provider Test Date Status PATRICIA 12/13/2023 10:25:26 Final Observation Date Value Abnormality Reference (Units ) Status BUN 12/13/2023 10:25:26 8 6-20 (mg/dL) Final Creatinine 12/13/2023 10:25:26 0.6 0.5-1.0 (mg/dL) Final Glomerular filtration rate/1.73 sq M.predicted [Volume Rate/Area] in Serum, Plasma or Blood by Creatinine-based formula (CKD-EPI) 12/13/2023 10:25:26 >90 >=60 (mL/min) Final eGFR is calculated based on the CKD-EPI 2020 equation Sodium 12/13/2023 10:25:26 135 135-146 (m mol/L) Final Potassium 12/13/2023 10:25:26 4.5 3.5-5.1 (m mol/L) Final Cl 12/13/2023 10:25:26 102 98-107 (mm ol/L) Final CO2 12/13/2023 10:25:26 18 Below low normal 22- 32 (mmol/L) Final Anion gap 12/13/2023 10:25:26 15 7-15 (mmol /L) Final Glucose 12/13/2023 10:25:26 58 Below low normal 70- 120 (mg/dL) Final Albumin 12/13/2023 10:25:26 3.7 Below low normal 3.8 -5.0 (g/dL) Final AST (Aspartate aminotransferase) 12/13/2023 10:25:26 19 10-35 (U/L) Fin al Alk Phos 12/13/2023 10:25:26 180 Above high normal 35 -130 (U/L) Final Bilirubin, Total 12/13/2023 10:25:26 <0.2 <=1 .2 (mg/dL) Final Calcium 12/13/2023 10:25:26 10.1 8.4-10.2 ( mg/dL) Final Protein 12/13/2023 10:25:26 6.3 6.0-8.3 (g /dL) Final ALT (Alanine aminotransferase) 12/13/2023 10:25:26 15 10-35 (U/L) Donnell ortiz Performing Location LABORATORY [place] 57-1 [address] - [address] [facility] [address]
--- OUTSIDE RECORDS SUMMARY | 2023-12-27 08:55 | External Medical Summary ---
Author Name Unknown Address Unknown Organization [id number]:LABORATORY [facility] [place] - [address] [place] [address] Laboratory Report Ordering Provider Test Date Status PATRICIA 12/13/2023 09:19:57 Final Normal: <150 mg/ g creatinine
High: 150-500 mg/g creatinine
Very High: >500 mg/g creatinine
Nephrotic: >3000 mg/g creatinine Observation Date Value Abnormality Reference (Units ) Status Protein/Creatinine [Ratio] in Urine 12/13/2023 09:19:57 176 Above high normal <150 (mg/g ) Final Protein, Urine 12/13/2023 09:19:57 16 (mg/dL) Final Creatinine, Urine 12/13/2023 09:19:57 91 (mg/dL) Final Performing Location LABORATORY [facility] - [address] [place] [address]
--- OUTSIDE RECORDS SUMMARY | 2023-12-27 08:56 | External Medical Summary ---
Author Name Unknown Address Unknown Organization K01:LABORATORY C - [address] [place] [address] Laboratory Report Ordering Provider Test Date Status MICHAEL GODINEZ 12/06/2023 08:47:43 Final Observation Date Value Abnormality Reference (Units ) Status MYCODE SPECIMEN-LAV 12/06/2023 08:47:43 Freezing of extracted DNA, whole blood and/or serum. Final Performing Location LABORATORY [facility] - [address] [place] [address]
--- OUTSIDE RECORDS SUMMARY | 2023-12-27 08:56 | External Medical Summary | Summary of Care ---
Author Name Unknown Organization [facility] Address [address] [place] [address] Phone [phone] Care Team Providers Care Distribution System Operator Name Role Phone Lelia Mendoza DO Primary Care Provider [phone] Encounter Details Date Type Department Care Team (Late st Contact Info) Description 11/25/2023 1:30 PM EDT Nurse Only Gynecology/Obstetrics [facility] [address] [facility] [place] [address] Gw, Nurse Obgyn Injection [address] [facility] [place] [address] Allergies Active Allergy Reactions Criticality Noted Date Comments Amoxicillin Rash 10/16/2016 Pollen 05/08/2023 documented as of this encounter (statuses as of 11/25/2023) Medications Medication Sig Dispensed Refills Start Date [...] as of this encounter (statuses as of 11/25/2023) Active Problems Problem Noted Date Diagnosed Date Poor growth affecting management of mother, antepartum 10/04/2023 Overview: EFW 8th %ile at 27 weeks; [...] unremarkable in appearance. The CHASE is normal. Antepartum multigravida of advanced maternal age 1208/09/2023 [...] will to reassess in about 3-4 weeks. Chronic hypertension in 08/01/2023 Overview: Chronic hypertension [...] assessment of proteinuria (24-hour urine protein or wxsrcgw-xn-pkhneejazf ratio) and CBC, serum AST/ALT/creatinine. If patient [...] as of this encounter (statuses as of 11/25/2023) Resolved Problems Problem Noted Date Diagnosed Date Resolved Date Supervision of high risk pre gnancy in second trimester 08/09/2023 08/28/2023 with 19 completed weeks gestation 08/09/2023 08/19/2023 Elevated blood pressure affe cting in second trimester, antepartum 07/04/2023 08/02/20 Overview: Elevated BP at 14w Positive test 05/08/2023 11 documented as of this encounter (statuses as of 11/25/2023) Immunizations Name Administration Dates Next Due COVID-19 mRNA, LNP-s, No Pre serve, 2-Dose Series ([email or web address]) 10/01/2020,09/10/2020 DTWP - Dipth/Tet/Whole Cell Pertussis 04/02/2005 [...] have money to get more. Patient declined [place] Depression Scale Answer Date Recorded [place] Depression Scale Total 8 11/08/2023 The thought [...] Sign Reading Time Taken Comments Blood Pressure 138/86 11/25/2023 1:43 PM EDT Pulse - - Temperature - - Respiratory Rate - - Oxygen Saturation - - Inhaled Oxygen Concentration - - Weight - - Height - - Body Mass Index - - documented in this encounter Nursing Notes * Meera Lam RN - 11/25/2023 1:45 PM EDT Patient here for BP check. BP this morning 138/103 , recheck was about the same Patient denies LAROSE/blurry vision/increase in swelling/RUQ pain No protein in urine BP 138/[address] Bonilla, patient to hydrate, rest, and monitor. No med changes at this time. Patientto follow up for VASU appts as scheduled, call with any new concerns. documented in this encounter Plan of Treatment Upcoming Encounters Date Type Department Care Team (Late st Contact Info) Description 12/06/2023 8:30 AM EDT Office Visit Gynecology/Obstetrics Nara Vasques [address] [place] [address] Backer, AIDE Shin [address] [place] [address] 12/12/2023 8:45 AM EDT Imaging Maternal Medicine Imaging, Alma Vasques [address] [place] [address] 12/13/2023 9:00 AM EDT Office Visit Gynecology/Obstetrics Nara Vasques [address] [place] [address] Tabatha Funez PA-C [address] [place] [address] 12/20/2023 9:15 AM EDT Office Visit Gynecology/Obstetrics Nara Snyders [address] [place] [address] Tabatha Funez PA-C [address] [place] [address] 12/27/2023 9:15 AM EDT Office Visit Gynecology/Obstetrics Nara Snyders [address] [place] [address] Tabatha Funez PA-C [address] [place] [address] 01/01/2024 9:30 AM EDT Office Visit Gynecology/Obstetrics Nara Vasques [address] [place] [address] Karol Beavers CRNP [address] [place] [address] 03/18/2024 11:30 AM EDT Office Visit [facility] [address] [facility] [place] [phone] Lelia Mendoza DO [address] [place] [address] Health Maintenance Due Date Last Done Comments Hepatitis B (1 of 3 - 19+ 3-dose series) 2005 HPV/Co-Test 2016 Influenza Vaccine (FLU shot) (#1) 2023 06/28/2021, 06/16/2020, 07/16/2016, Additional history exists Diabetes Screening 08/23/2023 08/23/2020, 1 10/24/2019, 05/15/2017, Additional history exists GFR 07/04/2024 07/04/2023, 08/03, [...] Comments URINALYSIS, POINT OF CARE (ENTER/EDIT) Routine 11/25/2023 Chronic hypertension in documented in this encounter Results * URINALYSIS, POINT OF CARE (ENTER/EDIT) (11/25/2023) Color, Urine Yellow Yellow or Light Yellow Clarity, Urine Clear Clear Glucose, Urine Negative Negative mg/dL Bilirubin, Urine Negative Negative Ketone, Urine Negative Negative mg/dL Specific [place], Urine 1.020 1.003 - 1.030 Blood, Urine Trace-lysed Negative pH, Urine 7.0 5.0 - 7.5 units Protein, Urine Negative Negative mg/dL Urobilinogen, Urine 0.2 0.2 - 1.0 mg/dL Nitrite, Urine Negative Negative Esterase, Urine Small Negative Urine 11/25/2023 Katharine Bonilla MD LAB POINT OF C ARE TEST ENTER/EDIT ORDERABLES documented in this encounter Visit Diagnoses Diagnosis Chronic hypertension in - Primary Benign essential hypertension complicating , childbirth, and the puerperium, unspecified as to episode of care documented in this encounter Care Teams Distribution System Operator Relationship Specialty Start Date End Date Lelia Mendoza DO [address] [place] [address] PCP - General Family Medicine 10/14/23 documented as of this encounter
--- OUTSIDE RECORDS SUMMARY | 2023-12-27 08:56 | External Medical Summary ---
Author Name Unknown Address Unknown Organization [id number]:LABORATORY [facility] [place] [address] [place] [address] Laboratory Report Ordering Provider Test Date Status DEVONTEBACKER 12/06/2023 08:47:43 Final Observation Date Value Abnormality Reference (Units ) Status WBC, Total 12/06/2023 08:47:43 12.80 Above high normal 4 .00-10.80 (K/uL) Final RBC 12/06/2023 08:47:43 4.21 3.85-5.15 (M/uL) Final Hemoglobin 12/06/2023 08:47:43 13.5 12.0-15.3 (g/dL) Final HCT 12/06/2023 08:47:43 40.5 36.0-45.2 (%) Final MCV 12/06/2023 08:47:43 96.2 81.5-97.5 (fL) Final MCH 12/06/2023 08:47:43 32.1 27.0-34.0 (pg) Final MCHC 12/06/2023 08:47:43 33.3 32.0-36.0 (g/dL) Final RDW 12/06/2023 08:47:43 13.6 11.5-15.5 (%) Final Platelets 12/06/2023 08:47:43 249 140-400 (K /uL) Final MPV 12/06/2023 08:47:43 11.7 6.6-11.1 ( fL) Final [facility] Location [facility] [place] [address]
--- OUTSIDE RECORDS SUMMARY | 2023-12-27 08:56 | External Medical Summary | Summary of Care ---
Author Name Unknown Organization [facility] Address [address] [place] [address] Phone [phone] Care Team Providers Care Matrix Bath Attendant Name Role Phone Lelia Mendoza DO Primary Care Provider [phone] Reason for Visit * Reason Comments Return Visit Encounter Details Date Type Department Care Team (Late st Contact Info) Description 12/06/2023 8:30 AM EDT Office Visit Gynecology/Obstetric s Nara Vasques [address] [place] [address] Priscilla Archer CRNP [address] [place] [address] High-risk in third trimester*; Primigravida of advanced [...] assessment of proteinuria (24-hour urine protein or qylruwl-lj-ityclqpsrh ratio) and CBC, serum AST/ALT/creatinine. If patient [...] mRNA, LNP-s, No Pre serve, 2-Dose Series ([employer]) 10/01/2020,09/10/2020 DTWP - Dipth/Tet/Whole Cell Pertussis 04/02/2005 [...] have money to get more. Patient declined [place] Depression Scale Answer Date Recorded [place] Depression Scale Total 8 11/08/2023 The thought [...] +1 proteinuria, will check preE labs today. Manager Speech Documentation Provider requested crab picker. Name of crab picker: AIDE Hull LPN * Tanya Cm LPN - 12/06/2023 8:19 AM EDT 36w1d Denies vaginal bleeding/rom + movement documented in this encounter Plan of Treatment Upcoming Encounters Date Type Department Care Team (Late st Contact Info) Description 12/06/2023 9:20 AM EDT [facility] [address] [facility] [place] [phone] [facility] [address] [place] [address] [employer] Research Other*[id number]; Chronic hypertension in 12/06/2023 10:30 AM EDT Office Visit [facility] [address] [facility], [place] [address] Lelia Mendoza DO [address] [place] [facility] [place] [address] 12/12/2023 8:45 AM EDT Imaging Maternal Medicine Imaging, Alma Vasques [address] [place] [phone] 12/13/2023 9:00 AM EDT Office Visit Gynecology/Obstetric s [facility] [address] [place] [address] Tabatha Funez PA-C [address] [place] [address] 12/20/2023 9:15 AM EDT Office Visit Gynecology/Obstetric s [facility] [address] [place] [address] Tabatha Funez PA-C [address] [place] [address] 12/27/2023 9:15 AM EDT Office Visit Gynecology/Obstetric s [facility] [address] [place] [address] Tabatha Funze PA-C [address] [place] [address] 01/01/2024 9:30 AM EDT Office Visit Gynecology/Obstetric s [facility] [address] [place] [address] Karol Beavers CRNP [address] [place] [address] Pending Results Name Type Priority Associated Diagnoses [...] Type Priority Associated Diagnoses Orde r Schedule GROUP B STREP CULTURE/PCR Lab Routine High-risk in third trimester Ordered: 12/06/2023 PROTEIN/ CREATININE RATIO, URINE Lab Routine Chronic [...] as of this encounter Visit Diagnoses Diagnosis High-risk in third trimester- Primary Primigravida of advanced maternal age in third trimester Chronic hypertension in Benign essential hypertension complicating , childbirth, and the puerperium, unspecified as to episode of care Antepartum multigravida of advanced maternal age [employer] Research Other*[id number] Chronic hypertension in Benign essential hypertension complicating , childbirth, and the puerperium, unspecified as to episode of care documented in this encounter Care Teams Matrix Bath Attendant Relationship Specialty Start Date End Date Lelia Mendoza DO [address] [place] [address] PCP - General Family Medicine 10/14/23 documented as of this encounter
--- OUTSIDE RECORDS SUMMARY | 2023-12-27 08:56 | External Medical Summary ---
Author Name Unknown Address Unknown Organization K01:LABORATORY C - [address] [place] [address] Laboratory Report Ordering Provider Test Date Status SUHAS WHITNEY 12/06/2023 08:47:43 Final Observation Date Value Abnormality Reference (Units ) Status Albumin 12/06/2023 08:47:43 3.8 3.8-5.0 (g/dL) Final AST (Aspartate aminotransferase) 12/06/2023 08:47:43 21 10-35 (U/L) Final Alk Phos 12/06/2023 08:47:43 176 Above high normal 35-130 (U/L) Final ALT (Alanine aminotransferase) 12/06/2023 08:47:43 18 10-35 (U/L) Final Bilirubin, Total 12/06/2023 08:47:43 <0.2 <=1.2 (mg/dL) Final Bilirubin, Direct 12/06/2023 08:47:43 <0.2 0.0-0.3 (mg/dL) Final Protein 12/06/2023 08:47:43 6.3 6.0-8.3 (g/dL) Final Performing Location [facility] [place] [address] [place] [address]
--- OUTSIDE RECORDS SUMMARY | 2023-12-27 08:56 | External Medical Summary | Summary of Care ---
Author Name Unknown Organization [facility] Address [address] [place] [address] Phone [phone] Care Team Providers Care Supervisor Grading Name Role Phone Lelia Mendoza DO Primary Care Provider [phone] Reason for Visit * Reason Comments Return Visit Encounter Details Date Type Department Care Team (Late st Contact Info) Description 12/06/2023 8:30 AM EDT Office Visit Gynecology/Obstetric s Nara Vasques [address] [place] [address] Priscilla Archer CRNP [address] [place] [address] High-risk in third trimester*; Primigravida of advanced [...] assessment of proteinuria (24-hour urine protein or twtmxwt-hu-mzhiwuruqm ratio) and CBC, serum AST/ALT/creatinine. If patient [...] mRNA, LNP-s, No Pre serve, 2-Dose Series ([employer]) 10/01/2020,09/10/2020 DTWP - Dipth/Tet/Whole Cell Pertussis 04/02/2005 [...] have money to get more. Patient declined [place] Depression Scale Answer Date Recorded [place] Depression Scale Total 8 11/08/2023 The thought [...] +1 proteinuria, will check preE labs today. Engineering Librarian Documentation Provider requested invoice checker. Name of invoice checker: AIDE Hull LPN * Adalberto Cm LPN - 12/06/2023 8:19 AM EDT 36w1d Denies vaginal bleeding/rom + movement documented in this encounter Miscellaneous Notes * Addendum Note - Adalberto Cm LPN - 12/06/2023 8:59 AM EDTAddended by: ADALBERTO CM on: 12/06/2023 08:59 AM Modules accepted: Orders documented in this encounter Plan of Treatment Upcoming Encounters Date Type Department Care Team (Late st Contact Info) Description 12/06/2023 9:20 AM EDT [facility] [address] [place] [address] Layo Jim Marquez [address] [place], [place] [address] Fetch MD Research Other*[id number]; Chronic hypertension in 12/06/2023 10:30 AM EDT Office Visit [facility] [address] [facility], [place] [phone] Lelia Mendoza [address] [facility], [place] [address] 12/12/2023 8:45 AM EDT Imaging Maternal Medicine Imaging, Alma Vasques [address] [place] [address] 12/13/2023 9:00 AM EDT Office Visit Gynecology/Obstetric s Nara Vasques [address] [place] [address] Tabatha Funez PA-C [address] [place] [address] 12/20/2023 9:15 AM EDT Office Visit Gynecology/Obstetric s Nara Vasqeus [address] [place] [address] Tabatha Funez PA-C [address] [place] [address] 12/27/2023 9:15 AM EDT Office Visit Gynecology/Obstetric s Nara Vasques [address] [place] [address] Tabatha Funez PA-C [address] [place] [address] 01/01/2024 9:30 AM EDT Office Visit Gynecology/Obstetric s Nara Vasques [address] [place] [address] Karol Beavers CRNP [address] [place] [address] Pending Results Name Type Priority Associated Diagnoses [...] Negative Ketone, Urine Negative Negative mg/dL Specific [place], Urine 1.030 1.003 - 1.030 Blood, Urine [...] multigravida of advanced maternal age [employer] Research Other*[id number] Chronic hypertension in Benign essential hypertension complicating , childbirth, and the puerperium, unspecified as to episode of care documented in this encounter Care Teams Supervisor Grading Relationship Specialty Start Date End Date Lelia Mendoza DO [address] [place] [address] PCP - General Family Medicine 10/14/23 documented as of this encounter
--- OUTSIDE RECORDS SUMMARY | 2023-12-27 08:56 | External Medical Summary ---
Author Name Unknown Address Unknown Organization K01:[place] [place] [address] [facility] [address] [facility] [address] Laboratory Report Ordering Provider Test Date Status SUHAS WHITNEY 12/06/2023 09:19:57 Final Observation Date Value Abnormality Reference (Units ) Status Streptococcus agalactiae DNA [Presence] in Specimen by TUAN with probe detection 12/06/2023 09:19:57 Negative Negative Final No Group B Streptococcus det ected by culture-enhanced PCR (amplified probe).
The collection of vaginal/rectal swab specimen combinations (FDA approved specimen type) is optimal for the detection of Group B Streptococcus. Single source collection (vaginal only or rectal only) or alternate specimen sources may lead to false negative results. Performing Location [facility] [facility] [place] [address] [facility] [address]
--- OUTSIDE RECORDS SUMMARY | 2023-12-27 08:56 | External Medical Summary ---
Author Name Unknown Address Unknown Organization K01:[facility]ATORY [facility] [place] - [address] [place] [address] Laboratory Report Ordering Provider Test Date Status MICHAEL GODINEZ 12/06/2023 08:47:43 Final Observation Date Value Abnormality Reference (Units ) Status MYCODE SPECIMEN-SST 12/06/2023 08:47:43 Freezing of extracted DNA, whole blood and/or serum. Final Performing Location LABORATORY [facility] [place] - [address] [place] [address]
--- OUTSIDE RECORDS SUMMARY | 2023-12-27 08:56 | External Medical Summary | Summary of Care ---
Author Name Unknown Organization [facility] Address [address] [place] [address] Phone [phone] Care Team Providers Care Link Knitting Machine Operator Name Role Phone Lelia Mendoza DO Primary Care Provider [phone] Reason for Visit * Reason Comments Return Visit Encounter Details Date Type Department Care Team (Late st Contact Info) Description 12/06/2023 8:30 AM EDT Office Visit Gynecology/Obstetric s Nara Vasques [address] [place] [address] Priscilla Archer CRNP [address] [place] [address] High-risk in third trimester*; Primigravida of advanced [...] assessment of proteinuria (24-hour urine protein or hcxaxqk-yn-cqnasfuzkr ratio) and CBC, serum AST/ALT/creatinine. If patient [...] mRNA, LNP-s, No Pre serve, 2-Dose Series ([employer]) 10/01/2020,09/10/2020 DTWP - Dipth/Tet/Whole Cell Pertussis 04/02/2005 [...] have money to get more. Patient declined [place] Depression Scale Answer Date Recorded [place] Depression Scale Total 8 11/08/2023 The thought [...] +1 proteinuria, will check preE labs today. Radio Director Documentation Provider requested manager military. Name of manager military: AIDE Hull LPN * Tanya Cm LPN - 12/06/2023 8:19 AM EDT 36w1d Denies vaginal bleeding/rom + movement documented in this encounter Plan of Treatment Upcoming Encounters Date Type Department Care Team (Late st Contact Info) Description 12/06/2023 9:20 AM EDT [facility] [address] [facility] [place] [phone] VasquesJim esposito [facility] [address] [place] [address] [employer] Research Other*[id number]; Chronic hypertension in 12/06/2023 10:30 AM EDT Office Visit [facility] [address] [facility], [place] [address] Lelia Mendoza DO [address] [facility] [place] [address] 12/12/2023 8:45 AM EDT Imaging Maternal Medicine Imaging, Alma Vasques [address] [place] [phone] 12/13/2023 9:00 AM EDT Office Visit Gynecology/Obstetric s [facility] [address] [place] [address] Tabatha Funez PA-C [address] [place] [address] 12/20/2023 9:15 AM EDT Office Visit Gynecology/Obstetric s [facility] [address] [place] [address] Tabatha Funez PA-C [address] [place] [address] 12/27/2023 9:15 AM EDT Office Visit Gynecology/Obstetric s [facility] [address] [place] [address] Tabatha Funez PA-C [address] [place] [address] 01/01/2024 9:30 AM EDT Office Visit Gynecology/Obstetric s [facility] [address] [place] [address] Karol Beavers CRNP [address] [place] [address] Pending Results Name Type Priority Associated Diagnoses [...] multigravida of advanced maternal age [employer] Research Other*[id number] Chronic hypertension in Benign essential hypertension complicating , childbirth, and the puerperium, unspecified as to episode of care documented in this encounter Care Teams Link Knitting Machine Operator Relationship Specialty Start Date End Date Lelia Mendoza DO [address] [place] [address] PCP - General Family Medicine 10/14/23 documented as of this encounter
--- OUTSIDE RECORDS SUMMARY | 2023-12-27 08:56 | External Medical Summary | Summary of Care ---
Author Name Unknown Organization [facility] Address [address] [place] [address] Phone [phone] Care Team Providers Care Diamond Die Polisher Name Role Phone Lelia Mendoza DO Primary Care Provider [phone] Encounter Details Date Type Department Care Team (Late st Contact Info) Description 11/25/2023 Telephone Gynecology/Obstetrics [facility] [address] [facility] [place] [address] Katharine Bonilla MD [address] [facility] [place] [address] Allergies Active Allergy Reactions Criticality [...] assessment of proteinuria (24-hour urine protein or gjxqyvw-vy-nuqpjkeede ratio) and CBC, serum AST/ALT/creatinine. If patient [...] PM BP Readings from Last 10 Encounters: 11/30/23 136/80 07/08/23 140/80 07/04/23 140/90 06/06/23 112/78 [...] mRNA, LNP-s, No Pre serve, 2-Dose Series ([employer]) 10/01/2020,09/10/2020 DTWP - Dipth/Tet/Whole Cell Pertussis 04/02/2005 [...] have money to get more. Patient declined [place] Depression Scale Answer Date Recorded [place] Depression Scale Total 8 11/08/2023 The thought [...] encounter Miscellaneous Notes * Telephone Encounter - Meera Lam RN - 11/25/2023 11:07 AM EDT Pt calling in, concerned as her BP was elevated twice at home this morning. States that at 7:30 it was 134/103 then she rechecked it at 10:15 and it was 151/103. Patient has not ever had a reading this high before. Denies any symptoms. States she thinks it is related to stress. No LAROSE/blurry vision/RUQ pain/swelling/dizziness or weakness. Patient offered BP nurse visit for us to recheck. She accepted. Added to schedule and advise to call back with any changes. documented in this encounter Plan of Treatment Upcoming Encounters Date Type Department Care Team (Late st Contact Info) Description 11/25/2023 1:30 PM EDT Nurse Only Gynecology/Obstetrics Nara Vasques [address] [place] [address] Gw, Nurse Obgyn Injection [address] [place] [address] 12/06/2023 8:30 AM EDT Office Visit Gynecology/Obstetrics Nara Vasques [address] [place] [address] Backer, AIDE Shin [address] [place] [address] 12/12/2023 8:45 AM EDT Imaging Maternal Medicine Imaging, Alma Vasques [address] [place] [phone] 12/13/2023 9:00 AM EDT Office Visit Gynecology/Obstetrics Nara Vasques [address] [place] [address] Tabatha Funez PA-C [address] [place] [address] 12/20/2023 9:15 AM EDT Office Visit Gynecology/Obstetrics Nara Vasques [address] [place] [address] Tabatha Funez PA-C [address] [place] [address] 12/27/2023 9:15 AM EDT Office Visit Gynecology/Obstetrics [facility] [address] [facility] [place] [address] Tabatha Funez PA-C [address] [place], [place] [address] 01/01/2024 9:30 AM EDT Office Visit Gynecology/Obstetrics [facility] [address] [facility] [place] [address] Karol Beavers CRNP [address] [place] [address] 03/18/2024 11:30 AM EDT Office Visit [facility] [address] [facility], [place] [phone] Lelia Mendoza DO [address] [place] [address] Health Maintenance Due Date Last Done Comments [...] filedocumented as of this encounter Care Teams Diamond Die Polisher Relationship Specialty Start Date End Date Lelia Mendoza DO [address] [place] [address] PCP - General Family Medicine 10/14/23 documented as of this encounter
--- OUTSIDE RECORDS SUMMARY | 2023-12-27 08:56 | External Medical Summary | Summary of Care ---
Author Name Unknown Organization [facility] Address [address] [place] [address] Phone [phone] Care Team Providers Care Film Replacement Orderer Name Role Phone Lelia Mendoza DO Primary Care Provider [phone] Encounter Details Date Type Department Care Team (Late st Contact Info) Description 11/25/2023 1:30 PM EDT Nurse Only Gynecology/Obstetrics [facility] [address] [facility] [place] [address] Gw, Nurse Obgyn Injection [address] [facility] [place] [address] Allergies Active Allergy Reactions Criticality Noted Date [...] assessment of proteinuria (24-hour urine protein or anmnedz-zx-eecjebumfv ratio) and CBC, serum AST/ALT/creatinine. If patient [...] mRNA, LNP-s, No Pre serve, 2-Dose Series ([employer]) 10/01/2020,09/10/2020 DTWP - Dipth/Tet/Whole Cell Pertussis 04/02/2005 [...] have money to get more. Patient declined Woodburn Depression Scale Answer Date Recorded [place] Depression Scale Total 8 11/08/2023 The thought [...] Vasques [address] [place] [address] Backer, AIDE Shin [address] [place] [address] 12/12/2023 8:45 AM EDT Imaging Maternal Medicine Imaging, Alma Vasques [address] [place] [address] 12/13/2023 9:00 AM EDT Office Visit Gynecology/Obstetrics Nraa Vasques [address] [place] [address] Tabatha Funez PA-C [address] [place] [address] 12/20/2023 9:15 AM EDT Office Visit Gynecology/Obstetrics Nara Snyders [address] [place] [address] Tabatha Funez PA-C [address] [place] [address] 12/27/2023 9:15 AM EDT Office Visit Gynecology/Obstetrics Nara Snyders [address] [place] [address] Tabatha Funez PA-C [address] [place] [address] 01/01/2024 9:30 AM EDT Office Visit Gynecology/Obstetrics Nara Vasques [address] [place] [address] Karol Beavers CRNP [address] [place] [address] 03/18/2024 11:30 AM EDT Office Visit [facility] [address] [place] [facility] [place] [id number] Lelia Mendoza DO [address] [place] [address] Health Maintenance Due Date Last Done Comments [...] Negative Ketone, Urine Negative Negative mg/dL Specific [place], Urine 1.020 1.003 - 1.030 Blood, Urine [...] care documented in this encounter Care Teams Film Replacement Orderer Relationship Specialty Start Date End Date Lelia Mendoza DO [address] [place] [address] PCP - General Family Medicine 10/14/23 documented as of this encounter
--- OUTSIDE RECORDS SUMMARY | 2023-12-27 08:56 | External Medical Summary ---
Author Name Unknown Address Unknown Organization K01:LABORATORY [facility] [place] - [address] [place] [address] Laboratory Report Ordering Provider Test Date Status MICHAEL GODINEZ 12/06/2023 08:47:43 Final Observation Date Value Abnormality Reference (Units ) Status MYCODE SPECIMEN-SST 12/06/2023 08:47:43 Freezing of extracted DNA, whole blood and/or serum. Final Performing Location [facility]ORY [facility] - [address] [place] [address]
--- OUTSIDE RECORDS SUMMARY | 2023-12-27 08:56 | External Medical Summary ---
Author Name Unknown Address Unknown Organization K01:[facility] [place] - [address] [place] [address] Laboratory Report Ordering Provider Test Date Status SUHAS WHITNEY 12/06/2023 08:47:43 Final Observation Date Value Abnormality Reference (Units ) Status Creatinine 12/06/2023 08:47:43 0.7 0.5-1.0 (mg/dL) Final Glomerular filtration rate/1.73 sq M.predicted [Volume Rate/Area] in Serum, Plasma or Blood by Creatinine-based formula (CKD-EPI) 12/06/2023 08:47:43 >90 >=60 (mL/min) Final eGFR is calculated based on the CKD-EPI 2020 equation Performing Location [facility] [place] - [address] [place] [address]
--- OUTSIDE RECORDS SUMMARY | 2023-12-27 08:56 | External Medical Summary | Summary of Care ---
Author Name Unknown Organization [facility] Address [address] [place] [address] Phone [phone] Care Team Providers Care Non Destructive Tester Name Role Phone Lelia Mendoza DO Primary Care Provider [phone] Reason for Visit * Reason Comments Outpatient Testing Encounter Details Date Type Department Care Team (Late st Contact Info) Description 12/06/2023 9:20 AM EDT Laboratory Laboratory, [facility] [address] [place] [phone] [facility] [address] [place] [address] DATAllegro Other*[id number]; Chronic hypertension in Allergies Active Allergy Reactions Criticality Noted Date [...] assessment of proteinuria (24-hour urine protein or ccuwzdt-fs-fvwccjlhlm ratio) and CBC, serum AST/ALT/creatinine. If patient [...] mRNA, LNP-s, No Pre serve, 2-Dose Series ([employer]) 10/01/2020,09/10/2020 DTWP - Dipth/Tet/Whole Cell Pertussis 04/02/2005 [...] have money to get more. Patient declined Winchester Depression Scale Answer Date Recorded Winchester Depression Scale Total 8 11/08/2023 The thought [...] Description 12/06/2023 10:30 AM EDT Office Visit [address] [address] Lelia Mendoza, DO [address] [facility] [place] [address] 12/12/2023 8:45 AM EDT Imaging Maternal Medicine Imaging, [facility] [address] [place] [address] 12/13/2023 9:00 AM EDT Office Visit Gynecology/Obstetrics [facility] [address] [place] [address] Tabatha Funez PA-C [address] [place] [address] 12/20/2023 9:15 AM EDT Office Visit Gynecology/Obstetrics [facility] [address] [place] [address] Tabatha Funez PA-C [address] [place] [address] 12/27/2023 9:15 AM EDT Office Visit Gynecology/Obstetrics [facility] [address] [place] [address] Tabatha Funez PA-C [address] [place] [address] 01/01/2024 9:30 AM EDT Office Visit Gynecology/Obstetrics [facility] [address] [place] [address] Karol Beavers CRNP [address] [place] [address] Pending Results Name Type Priority Associated Diagnoses Date /Time MYCODE INITIAL ADULT Lab Routine MyCode Research Other*[id number] 12/06/2023 8:47 AM EDT CBC Lab Routine Chronic hypertension in 12/06/2023 8:47 AM EDT HEPATIC FUNCTION PANEL Lab Routine Chronic hypertension in 12/06/2023 8:47 AM EDT CREATININE Lab Routine Chronic hypertension in 12/06/2023 8:47 AM EDT MYCODE INITIAL ADULT-PINK Lab Routine [employer] Other*[id number] 12/06/2023 8:47 AM EDT MYCODE SST1 Lab Routine [employer] Other*[id number] 12/06/2023 8:47 AM EDT MYCODE SST2 Lab Routine [employer] Other*[id number] 12/06/2023 8:47 AM EDT Health Maintenance Due Date Last [...] this encounter Visit Diagnoses Diagnosis My[employer] Other*[id number] Chronic hypertension in Benign essential hypertension complicating , childbirth, and the puerperium, unspecified as to episode of care documented in this encounter Care Teams Non Destructive Tester Relationship Specialty Start Date End Date Lelia Mendoza DO [address] [place] [address] PCP - General Family Medicine 10/14/23 documented as of this encounter
--- OUTSIDE RECORDS SUMMARY | 2023-12-27 08:57 | External Medical Summary | Summary of Care ---
Author Name Unknown Organization [facility] Address [address] [place] [address] Phone [phone] Care Team Providers Care Fuel Efficient Aircraft Designer Name Role Phone Lelia Mendoza DO Primary Care Provider [phone] Reason for Visit * Reason Onset Date Comments Advice 11/22/2023 Encounter Details Date Type Department Care Team (Late st Contact Info) Description 11/22/2023 Telephone [facility] [address] [place] [address] Lelia Mendoza DO [address] [place] [address] Advice Allergies Active Allergy Reactions Criticality Noted Date Comments Amoxicillin Rash 10/16/2016 Pollen 05/08/2023 documented as of this encounter (statuses as of 11/22/2023) Medications Medication Sig Dispensed Refills Start Date [...] as of this encounter (statuses as of 11/22/2023) Active Problems Problem Noted Date Diagnosed Date [...] assessment of proteinuria (24-hour urine protein or xcsrple-mf-qhswnlmrby ratio) and CBC, serum AST/ALT/creatinine. If patient [...] as of this encounter (statuses as of 11/22/2023) Resolved Problems Problem Noted Date Diagnosed Date Resolved Date Supervision of high risk pre gnancy in second trimester 08/09/2023 08/28/2023 with 19 completed weeks gestation 08/09/2023 08/19/2023 Elevated blood pressure affe cting in second trimester, antepartum 07/04/2023 08/02/20 Overview: Elevated BP at 14w Positive test 05/08/202307/05 documented as of this encounter (statuses as of 11/22/2023) Immunizations Name Administration Dates Next Due COVID-19 mRNA, LNP-s, No Pre serve, 2-Dose Series ([employer]) 10/01/2020,09/10/2020 DTWP - Dipth/Tet/Whole Cell Pertussis 04/02/2005 [...] have money to get more. Patient declined Cam[place] Depression Scale Answer Date Recorded [place] Depression Scale Total 8 11/08/2023 The thought [...] encounter Miscellaneous Notes * Telephone Encounter - Sania Saxena LPN - 11/22/2023 1:02 PM EDT Mom is aware that once the baby is born the hospital will set up the appointment. * Telephone Encounter - Candi Boyd OSA - 11/22/2023 12:54 PM EDT Patient calling to speak with Pediatrics Alma gee-recommended, Dr Lamas, Dr Cheng or SANDIE Ramirez she is interested in having her baby followed by the practice she is due January 02, 2024. documented in this encounter Plan of Treatment Upcoming Encounters Date Type Department Care Team (Late st Contact Info) Description 12/06/2023 8:30 AM EDT Office Visit Gynecology/Obstetrics [facility] [address] [place] [address] Backer, AIDE Shin [address] [place] [address] 12/12/2023 8:45 AM EDT Imaging Maternal Medicine Imaging, Alma Snyders [address] [place] [address] 12/13/2023 9:00 AM EDT Office Visit Gynecology/Obstetrics [facility] [address] [place] [address] Tabatha Funez PA-C [address] [place] [address] 12/20/2023 9:15 AM EDT Office Visit Gynecology/Obstetrics [facility] [address] [place] [address] Tabatha Funez PA-C [address] [place] [address] 12/27/2023 9:15 AM EDT Office Visit Gynecology/Obstetrics Ernest[facility] Snyders [address] [place] [address] Tabatha Funez PA-C [address] [place] [address] 01/01/2024 9:30 AM EDT Office Visit Gynecology/Obstetrics Nara Gee [address] [place] [address] Karol Beavers CRNP [address] [place] [address] 03/18/2024 11:30 AM EDT Office Visit [facility] [address] [place] [facility] [place] [phone] Lelia Mendoza DO [address] [place] [address] Health Maintenance Due Date Last Done Comments [...] filedocumented as of this encounter Care Teams Fuel Efficient Aircraft Designer Relationship Specialty Start Date End Date Lelia Mendoza DO [address] [place] [address] PCP - General Family Medicine 10/14/23 documented as of this encounter
--- OUTSIDE RECORDS SUMMARY | 2023-12-27 08:57 | External Medical Summary | Summary of Care ---
Author Name Unknown Organization [facility] Address [address] [place] [address] Phone [phone] Care Team Providers Care Steam Hoist Operator Name Role Phone Lelia Mendoza DO Primary Care Provider [phone] Reason for Visit * Reason Comments Return Visit Encounter Details Date Type Department Care Team (Late st Contact Info) Description 11/22/2023 9:00 AM EDT Office Visit Gynecology/Obstetric s [facility] [address] [facility] [place] [address] Margoth Ding CNM [address] [place] [address] High-risk , third trimester*; Primigravida of advanced maternal age in third trimester; Chronic hypertension in Allergies Active Allergy Reactions [...] assessment of proteinuria (24-hour urine protein or lawyumk-az-uoelodiozv ratio) and CBC, serum AST/ALT/creatinine. If patient [...] mRNA, LNP-s, No Pre serve, 2-Dose Series ([employer] 10/01/2020,09/10/2020 DTWP - Dipth/Tet/Whole Cell Pertussis [...] have money to get more. Patient declined Eldridge Depression Scale Answer Date Recorded Eldridge Depression Scale Total 8 11/08/2023 The thought [...] Reading Time Taken Comments Blood Pressure 138/84 11/22/2023 9:26 AM EDT Pulse - - Temperature - - Respiratory Rate - - Oxygen Saturation - - Inhaled Oxygen Concentration - - Weight 84.4 kg (186 lb) 11/22/2023 9:02 AM EDT Height - - Body Mass Index 32.95 10/25/2023 11:12 AM EST documented in this encounter Progress Notes * Tanya Cm LPN - 11/22/2023 9:03 AM EDT 34w1d Denies vaginal bleeding/rom + movement Has some general questions * Margoth Ding CNM - 11/22/2023 9:01 AM EDT Gretchen Mosquera is a 38 year old female here for her routine OB appointment at 34w1d Her Estimated Date of Delivery: 01/02/24 REVIEW OF SYSTEMS: She affirms movement. Denies vaginal bleeding, LOF, contractions, N/V, headaches, vision changes, and RUQ pain. +Lower back spasms. PHYSICAL EXAM: Filed Vitals: 11/22/23 0902 11/22/23 0926 BP: 144/86 138/84 Weight: 84.4 kg (186 lb) +FHT 150-160bpm Fundal height: 34cm ASSESSMENT/PLAN: (O09.513) Primigravida of advanced maternal age in third trimester (O10.919) Chronic hypertension in Plan: -BP 144/86 initially; repeat BP 138/84 - Continue ASA 81mg daily - Reviewed warning signs of pre-eclampsia -Monitors BP at home - running 120s-130s/80s-90s (O09.93) High-risk , third trimester (primary encounter diagnosis) Plan: -Provided Rx for breast pump -Patient is followed by MFM for AMA and chronic HTN. -Growth restriction has improved per MFM (see Priscilla Archer's telephone encounter from 11/20/2023) - discussed GBS and to expect swab to be completed at next visit - labor precautions and kick counts reviewed - RTO in 2 weeks Margoth Ding CNM documented in this encounter Plan of Treatment Upcoming Encounters Date Type Department Care Team (Late st Contact Info) Description 12/06/2023 8:30 AM EDT Office Visit Gynecology/Obstetrics Nara Vasques [address] [place] [address] Priscilla Archer CRNP [address] [place] [address] 12/12/2023 8:45 AM EDT Imaging Maternal Medicine Imaging, Alma Vasques [address] [place] [address] 12/13/2023 9:00 AM EDT Office Visit Gynecology/Obstetrics Nara Vasques [address] [place] [address] Tabatha Funez PA-C [address] [place] [address] 12/20/2023 9:15 AM EDT Office Visit Gynecology/Obstetrics Nara Vasques [address] [place] [address] Tabatha Funez PA-C [address] [place] [address] 12/27/2023 9:15 AM EDT Office Visit Gynecology/Obstetrics Nara Vasques [address] [place] [address] Tabatha Funez PA-C [address] [place] [address] 01/01/2024 9:30 AM EDT Office Visit Gynecology/Obstetrics Nara Vasques [address] [place] [address] Karol Beavers CRNP [address] [place] [address] 03/18/2024 11:30 AM EDT Office Visit Family [facility] [place] [address] [place] [address] Lelia Mendoza DO [address] [place], [place] [phone] Health Maintenance Due Date Last Done Comments [...] Comments URINALYSIS, POINT OF CARE (ENTER/EDIT) Routine 11/22/2023 Primigravida of advanced maternal age in third trimester Chronic hypertension in High-risk , third trimester documented in this encounter Results * URINALYSIS, POINT OF CARE (ENTER/EDIT) (11/22/2023) Color, Urine Yellow Yellow or Light Yellow Clarity, Urine Clear Clear Glucose, Urine 500 Negative mg/dL Bilirubin, Urine Negative Negative Ketone, Urine Negative Negative mg/dL Specific [place], Urine 1.030 1.003 - 1.030 Blood, Urine Trace-intact Negative pH, Urine 6.5 5.0 - 7.5 units Protein, Urine Trace Negative mg/dL Urobilinogen, Urine 0.2 0.2 - 1.0 mg/dL Nitrite, Urine Negative Negative Esterase, Urine Small Negative Urine 11/22/2023 Margoth Ding CNM LAB POINT OF CARE ST ENTER/EDIT ORDERABLES documented in this encounter Visit Diagnoses Diagnosis High-risk , third trimester- Primary Primigravida of advanced maternal age in third trimester Chronic hypertension in Benign essential hypertension complicating , childbirth, and the puerperium, unspecified as to episode of care documented in this encounter Care Teams Steam Hoist Operator Relationship Specialty Start Date End Date Lelia Mendoza DO [address] [place] [address] PCP - General Family Medicine 10/14/23 documented as of this encounter
--- OUTSIDE RECORDS SUMMARY | 2023-12-27 08:57 | External Medical Summary | Summary of Care ---
Author Name Unknown Organization [facility] Address [address] [place] [address] Phone [phone] Care Team Providers Care Typewriter Assembly And Parts Inspector Name Role Phone Lelia Mendoza DO Primary Care Provider [phone] Reason for Visit * Reason Comments Return Visit Encounter Details Date Type Department Care Team (Late st Contact Info) Description 11/22/2023 9:00 AM EDT Office Visit Gynecology/Obstetric s [facility] [address] [employer] [place] [address] Margoth Ding CNM [address] [facility] [place] [address] High-risk , third trimester*; Primigravida of [...] assessment of proteinuria (24-hour urine protein or wzjgnyv-hn-ovmmsxxero ratio) and CBC, serum AST/ALT/creatinine. If patient [...] mRNA, LNP-s, No Pre serve, 2-Dose Series ([employer]) 10/01/2020,09/10/2020 DTWP - Dipth/Tet/Whole Cell Pertussis 04/02/2005 [...] have money to get more. Patient declined [place]ie Depression Scale Answer Date Recorded Dixie Depression Scale Total 8 11/08/2023 The thought [...] Vasques [address] [place] [address] Priscilla Archer CRNP [address] [place] [address] 12/12/2023 8:45 AM EDT Imaging Maternal Medicine Imaging, Alma Vasques [address] [place] [address] 12/13/2023 9:00 AM EDT Office Visit Gynecology/Obstetrics Nara Vasques [address] [place] [address] Tabatha Funez PA-C [address] [place] [address] 12/20/2023 9:15 AM EDT Office Visit Gynecology/Obstetrics Nara Vasques [address] [place] [address] Tabatha Funez PA-C [address] [place] [address] 12/27/2023 9:15 AM EDT Office Visit Gynecology/Obstetrics Nara Vasques [address] [place] [address] Tabatha Funez PA-C [address] [place] [address] 01/01/2024 9:30 AM EDT Office Visit Gynecology/Obstetrics Nara Vasques [address] [place] [address] Kaorl Beavers CRNP [address] [place] [address] 03/18/2024 11:30 AM EDT Office Visit Family [facility] [place] [address] [place] [address] Lelia Mendoza DO [address] [place], [place] [address] Health Maintenance Due Date Last Done Comments [...] Negative Ketone, Urine Negative Negative mg/dL Specific [place], Urine 1.030 1.003 - 1.030 Blood, Urine [...] care documented in this encounter Care Teams Typewriter Assembly And Parts Inspector Relationship Specialty Start Date End Date Lelia Mendoza DO [address] [place] [address] PCP - General Family Medicine 10/14/23 documented as of this encounter
--- OUTSIDE RECORDS SUMMARY | 2023-12-27 08:57 | External Medical Summary | Summary of Care ---
Author Name Unknown Organization [facility] Address [address] [place] [address] Phone [phone] Care Team Providers Care Balance Staff Inspector Name Role Phone Lelia Mendoza DO Primary Care Provider [phone] Reason for Visit * Reason Onset Date Comments Advice 11/20/2023 Encounter Details Date Type Department Care Team (Late st Contact Info) Description 11/20/2023 Telephone Gynecology/Obstetrics [facility] [address] [place] [address] Priscilla Archer CRNP [address] [place] [address] Advice Allergies Active Allergy Reactions Criticality Noted Date Comments Amoxicillin Rash 10/16/2016 Pollen 05/08/2023 documented as of this encounter (statuses as of 11/20/2023) Medications Medication Sig Dispensed Refills Start Date [...] mouth in the morning. 0 07/04/2023 Active documented as of this encounter (statuses as of 11/20/2023) Active Problems Problem Noted Date Diagnosed Date [...] assessment of proteinuria (24-hour urine protein or swwyjee-cn-hdjhomwouy ratio) and CBC, serum AST/ALT/creatinine. If patient [...] as of this encounter (statuses as of 11/20/2023) Resolved Problems Problem Noted Date Diagnosed Date Resolved Date Supervision of high risk pre gnancy in second trimester 08/09/2023 08/28/2023 with 19 completed weeks gestation 08/09/2023 08/19/2023 Elevated blood pressure affe cting in second trimester, antepartum 07/04/2023 08/02/20 Overview: Elevated BP at 14w Positive test 05/08/2023 11/ documented as of this encounter (statuses as of 11/20/2023) Immunizations Name Administration Dates Next Due COVID-19 mRNA, LNP-s, No Pre serve, 2-Dose Series ([employer]) 10/01/2020,09/10/2020 DTWP - Dipth/Tet/Whole Cell Pertussis 04/02/2005 [...] have money to get more. Patient declined Sumner Depression Scale Answer Date Recorded Sum[place] Depression Scale Total 8 11/08/2023 The thought [...] encounter Miscellaneous Notes * Telephone Encounter - MarinerPriscilla CRNP - 11/20/2023 3:23 PM EDT [place] Text sent to Dr Person in [facility] regarding patient's plan of care. Per MD, "since growth hasimproved over the last 2 exams, would not manage as growth restriction. Would base surveillance on other indications such as CHTN." She is not currently on anti-hypertensive medication, so NSTs are not needed at this time. AIDE Beck 11/20/23 documented in this encounter Plan of Treatment Upcoming Encounters Date Type Department Care Team (Late st Contact Info) Description 11/22/2023 8:45 AM EDT Office Visit Gynecology/Obstetrics Nara Vasques [address] [place] [address] Margoth Ding, [address] [place] [address] 12/06/2023 8:30 AM EDT Office Visit Gynecology/Obstetrics Nara Vasques [address] [place] [address] Priscilla Archer CRNP [address] [place] [address] 12/12/2023 8:45 AM EDT Imaging Maternal Medicine Imaging, Alma Vasques [address] [place] [address] 12/13/2023 9:00 AM EDT Office Visit Gynecology/Obstetrics Nara Vasques [address] [place] [address] Tabatha Funez PA-C [address] [place] [address] 12/20/2023 9:15 AM EDT Office Visit Gynecology/Obstetrics Nara Vasques [address] [place] [address] Tabatha Funez PA-C [address] [place] [address] 12/27/2023 9:15 AM EDT Office Visit Gynecology/Obst[facility]s [facility] [address] [place] [address] Tabatha Funez PA-C [address] [place] [address] 01/01/2024 9:30 AM EDT Office Visit [facility] [address] [facility] [place] [address] Karol Beavers CRNP [address] [place] [address] 03/18/2024 11:30 AM EDT Office Visit [facility] [address] [place] [facility] [place] [phone] Lelia Mendoza DO [address] [place] [address] Health Maintenance Due Date Last Done Comments [...] filedocumented as of this encounter Care Teams Balance Staff Inspector Relationship Specialty Start Date End Date Lelia Mendoza DO [address] [place] [address] PCP - General Family Medicine 10/14/23 documented as of this encounter
--- OUTSIDE RECORDS SUMMARY | 2023-12-27 08:58 | External Medical Summary | Summary of Care ---
Author Name Unknown Organization [facility] Address [address] [place] [address] Phone [phone] Care Team Providers Care Coat Examiner Name Role Phone Lelia Mendoza DO Primary Care Provider [phone] Reason for Visit * Reason Onset Date Comments Return Visit Immunizations 11/08/2023 Encounter Details Date Type Department Care Team (Late st Contact Info) Description 11/08/2023 9:45 AM EST Office Visit Gynecology/Obstetric s Nara Vasques [address] [facility] [place] [address] Karol Beavers CRNP [address] [facility] [place] [address] Elderly primigravida*; Chronic hypertension in ; Antepartum multigravida of advanced maternal age; Poor growth affecting management of mother, antepartum; Need for wwutwawods-oeemein-bp rtussis (Tdap) vaccine Allergies Active Allergy Reactions Criticality Noted Date Comments Amoxicillin Rash 10/16/2016 Pollen 05/08/2023 documented as of this encounter (statuses as of 11/08/2023) Medications Medication Sig Dispensed Refills Start Date [...] as of this encounter (statuses as of 11/08/2023) Active Problems Problem Noted Date Diagnosed Date Poor growth affecting management of mother, antepartum 10/04/2023 Overview: EFW 8th %ile at 27 weeks; weekly BPP/NST and dopplers per MFM Last Assessment & Plan: EFW just abot 10%ile. Will continue weekly surveillance until next growth assessment. Antepartum multigravida of advanced maternal age 1208/09/2023 [...] assessment of proteinuria (24-hour urine protein or grswfaa-qo-zepduuubzw ratio) and CBC, serum AST/ALT/creatinine. If patient [...] 120/60 07/13/21 122/74 Last Assessment & Plan: BP Readings from Last 10 Encounters: 09/26/23 136/78 09/11/23 150/68 08/29/23 120/82 08/19/23 139/67 08/01/23 136/80 07/08/23 140/80 07/04/23 140/90 06/06/23 112/78 05/08/23 116/70 07/31/22 112/68 Majority < 140/90; would add labetalol or nifedipine if needed to maintain. Elderly primigravida 05/08/2023 Chronic intractable headache 02/05/2022 Allergic rhinitis 02/05/2022 Recurrent major depressive disorder, in partial remission 12/05/2021 Estimated Date of Delivery Comme nts Yes 01/02/2024 Based on last me nstrual period of 03/28/2023 (Exact Date), 03/28 - 03/31 was LMP documented as of this encounter (statuses as of 11/08/2023) Resolved Problems Problem Noted Date Diagnosed Date Resolved Date Supervision of high risk pre gnancy in second trimester 08/09/2023 08/28/2023 with 19 completed weeks gestation 08/09/2023 08/19/2023 Elevated blood pressure affe cting in second trimester, antepartum 07/04/2023 08/02/20 Overview: Elevated BP at 14w Positive test 05/08/202307/05 documented as of this encounter (statuses as of 11/08/2023) Immunizations Name Administration Dates Next Due COVID-19 mRNA, LNP-s, No Pre serve, 2-Dose Series ([employer]) 10/01/2020,09/10/2020 DTWP - Dipth/Tet/Whole Cell Pertussis [...] have money to get more. Patient declined [place] Depression Scale Answer Date Recorded [place] Depression Scale Total 8 11/08/2023 The thought [...] Sign Reading Time Taken Comments Blood Pressure 142/84 11/08/2023 9:42 AM EST Pulse - - Temperature - - Respiratory Rate - - Oxygen Saturation - - Inhaled Oxygen Concentration - - Weight 85.7 kg (189 lb) 11/08/2023 9:42 AM EST Height - - Body Mass Index 33.48 10/25/2023 11:12 AM EST documented in this encounter Patient Instructions * Patient Instructions* Tanya Cm LPN - 11/08/2023 10:16 AM EST ~~PATIENT INSTRUCTIONS FOR TDAP VACCINE~~ Possible side effects of TDAP vaccine, (tetanus shot), are usually mild and can include: 1. Soreness or redness at injection site 2. Low grade fever 3. Body aches You may use a fever / pain reducing medication as needed for these symptoms. LET YOUR DOCTOR KNOW IMMEDIATELY IF YOU HAVE DIFFICULTY BREATHING OR SWALLOWING, EXPERIENCE ITCHINGOF FEET OR HANDS, HAVE SWELLING OF EYES, FACE OR INSIDE OF NOSE. documented in this encounter Progress Notes * Karol Beavers CRNP - 11/08/2023 10:23 AM EST 32w1d Had good MFM appt yesterday, happy about that. Reviewed plan, seems appropriate. Baby is active. No contractions or bleeding. TDAP today. AIDE Nick * Tanya Cm LPN - 11/08/2023 10:16 AM EST Tdap covered under Medicare Part D, prescription order pended for physician to sign. Tanya Cm LPN * Tanya Cm LPN - 11/08/2023 9:46 AM EST 32w1d Denies vaginal bleeding/rom + movement Lower back discomfort Review birthing plan documented in this encounter Nursing Notes * Tanya Cm LPN - 11/08/2023 10:28 AM EST Patient here for tdap injection. Patient doing well no complaints. Injection given IM as ordered. Patient tolerated well. Patient to follow up as directed. Patient instructed to call if any complications. Patient verbalized understanding of instructions given. Injection site: Right Deltoid Medication Source: Dispensed stock medication documented in this encounter Plan of Treatment Upcoming Encounters Date Type Department Care Team (Late st Contact Info) Description 11/14/2023 2:15 PM EDT Office Visit Vamp Stitcher Obstetrics Maternal Medicine, [place] [address] [place] [address] Richy Person, [address] [place] [address] 11/14/2023 2:15 PM EDT [facility] [place] [address] [place] [address] 11/21/2023 9:30 AM EDT Imaging Maternal Medicine Imaging, Alma Vasques [address] [facility] [place] [address] 12/12/2023 8:45 AM EDT Imaging Maternal Medicine Imaging, Alma Vasques [address] [facility] [place] [address] 12/19/2023 9:30 AM EDT Office Visit Vamp Stitcher Obstetrics Maternal Medicine, Alma Snyders [address] [facility] [place] [address] Nelda Avina, [address] [place] [address] 12/19/2023 9:30 AM EDT Imaging Maternal Medicine Imaging, Alma Vasques [address] [place] [address] 03/18/2024 11:30 AM EDT Office Visit [place] [address] [place] [phone] Lelia Mendoza [place] [address] Pending Results Name Type Priority Associated Diagnoses Date /Time CULTURE, URINE, QUANTITATIVE Lab Routine Elderly primigravida 11/08/2023 10:28 AM EST Health Maintenance Due Date Last Done Comments Hepatitis B (1 of 3 - 19+ 3-dose series) 2005 HPV/Co-Test 2016 Depression Screening 08/11/2021 08/11/2020 Influenza Vaccine (FLU shot) (#1) 2023 06/28/2021, 06/16/2020, 07/16/2016, Additional history exists Diabetes Screening 08/23/2023 08/23/2020, 1 10/24/2019, 05/15/2017, Additional history exists GFR 07/04/2024 07/04/2023, 08/03, 05/15/2017, Additional history exists Cervical Cancer Screening 07/13/2024 Pap Smear 07/13/2024 07/13/2021, 10/31, 01/23/2016 DTaP,Tdap,and Td Vaccines (4 - Td or [...] Comments URINALYSIS, POINT OF CARE (ENTER/EDIT) Routine 11/08/2023 Elderly primigravida Chronic hypertension in documented in this encounter Results * URINALYSIS, POINT OF CARE (ENTER/EDIT) (11/08/2023) Color, Urine Yellow Yellow or Light Yellow Clarity, Urine Clear Clear Glucose, Urine 500 Negative mg/dL Bilirubin, Urine Negative Negative Ketone, Urine Negative Negative mg/dL Specific [place], Urine 1.020 1.003 - 1.030 Blood, Urine Trace-intact Negative pH, Urine 7.0 5.0 - 7.5 units Protein, Urine Negative Negative mg/dL Urobilinogen, Urine 0.2 0.2 - 1.0 mg/dL Nitrite, Urine Negative Negative Esterase, Urine Small Negative Urine 11/08/2023 Karol NOBLE LAB POINT OF CARE [facility] ENTER/EDIT ORDERABLES documented in this encounter Visit Diagnoses Diagnosis Elderly primigravida- Primary Elderly primigravida, unspecified as to episode of care Chronic hypertension in Benign essential hypertension complicating , childbirth, and the puerperium, unspecified as to episode of care Antepartum multigravida of advanced maternal age Poor growth affecting management of mother, antepartum Poor growth, affecting management of mother, antepartum condition or complication Need for cntwjokwsr-bzzuwre-bdufdofsr (Tdap) vaccine Need for prophylactic vaccination with combined pzltapffsu-xohdzyu-wchuhdehw (DTP) vaccine documented in this encounter Care Teams Coat Examiner Relationship Specialty Start Date End Date Lelia Mendoza DO [address] [place] [address] PCP - General Family Medicine 10/14/23 documented as of this encounter
--- OUTSIDE RECORDS SUMMARY | 2023-12-27 08:58 | External Medical Summary ---
Author Name Unknown Address Unknown Organization K01:[facility] - [address] [facility] Laboratory Report Ordering Provider Test Date Status JOSE A WILLIAMSONUSMAN 11/08/2023 10:28:44 Final Observation Date Value Abnormality Reference (Units) Status Bacteria identified in Specimen by Culture 11/08/2023 10:28:44 No significant growth Final Test: Culture, Urine, Quant itative
Specimen Source: Urine, Clean Catch
Specimen Type: Urine
Specimen Date: 11/08/2023 10:28 AM
Result Date: 11/09/2023 11:10 AM
Result Status: Final result
Resulting Lab: [facility]
[address]
[facility]

CULTURE

No significant growth

null Performing Location [facility] - [address] [facility] [address]
--- OUTSIDE RECORDS SUMMARY | 2023-12-27 08:58 | External Medical Summary | Summary of Care ---
Author Name Unknown Organization [facility] Address [address] [place] [address] Phone [phone] Care Team Providers Care Alining Inspector Name Role Phone Lelia Mendoza DO Primary Care Provider [phone] Reason for Visit * Reason Comments Ultrasound Encounter Details Date Type Department Care Team (Late st Contact Info) Description 11/14/2023 2:15 PM EDT Office Visit Car Manager Obstetrics Maternal Medicine, [place] [address] [place], [place] [phone] Richy Person [address] [place], [place] [phone] Chronic hypertension in *; Antepartum multigravida of advanced maternal age; Poor growth affecting management of mother, antepartum, single or unspecified fetus Allergies Active Allergy Reactions Criticality Noted Date Comments Amoxicillin Rash 10/16/2016 Pollen 05/08/2023 documented as of this encounter (statuses as of 11/14/2023) Medications Medication Sig Dispensed Refills Start Date [...] as of this encounter (statuses as of 11/14/2023) Active Problems Problem Noted Date Diagnosed Date Poor growth affecting management of mother, antepartum 10/04/2023 Overview: EFW 8th %ile at 27 weeks; weekly BPP/NST and dopplers per MFM Last Assessment & Plan: She presents for [...] assessment of proteinuria (24-hour urine protein or zxkzubl-so-imhnumsjsg ratio) and CBC, serum AST/ALT/creatinine. If patient [...] as of this encounter (statuses as of 11/14/2023) Resolved Problems Problem Noted Date Diagnosed Date Resolved Date Supervision of high risk pre gnancy in second trimester 08/09/2023 08/28/2023 with 19 completed weeks gestation 08/09/2023 08/19/2023 Elevated blood pressure affe cting in second trimester, antepartum 07/04/2023 08/02/20 Overview: Elevated BP at 14w Positive test 05/08/202307/05 documented as of this encounter (statuses as of 11/14/2023) Immunizations Name Administration Dates Next Due COVID-19 mRNA, LNP-s, No Pre serve, 2-Dose Series ([employer]) 10/01/2020,09/10/2020 DTWP - Dipth/Tet/Whole Cell Pertussis 04/02/2005 [...] have money to get more. Patient declined [place] Depression Scale Answer Date Recorded [place] Depression Scale Total 8 11/08/2023 The thought [...] Sign Reading Time Taken Comments Blood Pressure 144/74 11/14/2023 3:14 PM EDT Pulse - - Temperature - - Respiratory Rate - - Oxygen Saturation - - Inhaled Oxygen Concentration - - Weight - - Height - - Body Mass Index - - documented in this encounter Progress Notes * Richy Person DO - 11/14/2023 3:45 PM EDT MATERNAL MEDICINE VISIT Gretchen Mosquera is at 33w0d who presents to [facility] for an ultrasound and follow-up of her high risk . PHYSICAL EXAM: BP 144/74 | LMP 03/28/2023 (Exact Date) Comment: 03/28 - 03/31 was LMP General: pleasant, alert and oriented, no acute distress She is being seen today by Maternal- Medicine for the following reasons: Problem List Items Addressed This Visit Chronic hypertension in - Primary Her initial BP was 160/90 with a [...] consider medications if consistent values > 140/90. Antepartum multigravida of advanced maternal age Poor growth affecting management of mother, antepartum She presents for follow-up of growth. FGR [...] unremarkable in appearance. The CHASE is normal. We reviewed today's ultrasound findings. (For full report, please refer to ultrasound report provided separately). Ms. Mosquera's questions were answered to her satisfaction. Ms. Mosquera was instructed to notify her primary lamp shades supervisor if she felt regular contractions (approximately every 10 mins), leaking of fluid, vaginal bleeding or if movement decreased. RECOMMENDATIONS: Recommend follow up ultrasound with [facility] in 4 weeks for growth secondary to the above. Thank you for allowing us to participate in the care of this patient. Please call with any questions. Richy Person DO 11/14/2023 3:45 PM documented in this encounter Miscellaneous Notes * Assessment & Plan Note - Richy Person DO - 11/14/2023 3:45 PM EDT Associated Problem(s): Chronic hypertension in Her initial BP was 160/90 with a [...] consider medications if consistent values > 140/90. * Assessment & Plan Note - Richy Person DO - 11/14/2023 3:18 PM EDT Associated Problem(s): Poor growth affecting management of mother, antepartum She presents for follow-up of growth. FGR [...] unremarkable in appearance. The CHASE is normal. documented in this encounter Plan of Treatment Upcoming Encounters Date Type Department Care Team (Late st Contact Info) Description 11/21/2023 9:30 AM EDT Imaging Maternal Medicine Imaging, Al[place] [phone] 11/22/2023 8:45 AM EDT Office Visit Gynecology/Obstetrics [place] [address] [place], [address] [place] [address] 12/06/2023 8:30 AM EDT Office Visit Gynecology/Obstetrics Nara Vasques [address] [place] [address] Backer PriscillaAIDE Mena [address] [place] [address] 12/12/2023 8:45 AM EDT Imaging Maternal Medicine Imaging, Alma Vasques [address] [place] [address] 12/13/2023 9:00 AM EDT Office Visit Gynecology/Obstetrics Avrils Vasques [address] [place] [address] Tabatha Funez PA-C [address] [place] [address] 12/19/2023 9:30 AM EDT Office Visit Car Manager Obstetrics Maternal Medicine, Alma Vasques [address] [place] [address] Nelda [place], DO [address] [place] [address] 12/19/2023 9:30 AM EDT Imaging Maternal Medicine Imaging, Alma Vasques [address] [place] [address] 12/20/2023 9:15 AM EDT Office Visit Gynecology/Obstetrics Nara Snyders [address] [place] [address] Tabatha Funez PA-C [address] [place] [address] 12/27/2023 9:15 AM EDT Office Visit Gynecology/Obstetrics Ernesto's Vasques [address] [place] [address] Tabatha Funez PA-C [address] [place] [address] 01/01/2024 9:30 AM EDT Office Visit Gynecology/Obstetrics Nara Snyders [address] [place] [address] Karol Beavers CRNP [address] [place] [address] 03/18/2024 11:30 AM EDT Office Visit [facility] [address] [facility], [place] [phone] Lelia Mendoza, [address] [place] [facility] [place] [address] Health Maintenance Due Date Last Done Comments [...] age Poor growth affecting management of mother, antepartum, single or unspecified fetus documented in this encounter Care Teams Alining Inspector Relationship Specialty Start Date End Date Lelia Mendoza DO [address] [place] [address] PCP - General Family Medicine 10/14/23 documented as of this encounter"
--- OUTSIDE RECORDS SUMMARY | 2023-12-27 08:58 | External Medical Summary | Summary of Care ---
Author Name Unknown Organization [facility] Address [address] [place] [address] Phone [phone] Care Team Providers Care Freight Brakeman Name Role Phone Lelia Mendoza DO Primary Care Provider [phone] Reason for Visit * Reason Onset Date Comments Return Visit Immunizations 11/08/2023 Encounter Details Date Type Department Care Team (Late st Contact Info) Description 11/08/2023 9:45 AM EST Office Visit Gynecology/Obstetric s Nara Vasques [address] [facility] [place] [address] Karol Beavers CRNP [address] [place] [address] Elderly primigravida*; Chronic hypertension in ; Antepartum multigravida of advanced maternal age; Poor growth affecting management of mother, antepartum; Need for agxgkjwomf-sdupxyn-vg rtussis (Tdap) vaccine Allergies Active Allergy Reactions [...] assessment of proteinuria (24-hour urine protein or xoddmlm-qv-npytafymnm ratio) and CBC, serum AST/ALT/creatinine. If patient [...] mRNA, LNP-s, No Pre serve, 2-Dose Series ([employer]) 10/01/2020,09/10/2020 DTWP - Dipth/Tet/Whole Cell Pertussis 04/02/2005 [...] have money to get more. Patient declined [place] Depression Scale Answer Date Recorded [place] Depression Scale Total 8 11/08/2023 The thought [...] Description 11/14/2023 2:15 PM EDT Office Visit Food Assembler Kitchen Obstetrics Maternal Medicine, [place] [address] [place] [address] Richy Person, [address] [place] [address] 11/14/2023 2:15 PM EDT [facility] [place] [address] [place] [address] 11/21/2023 9:30 AM EDT Imaging Maternal Medicine Imaging, Alma Snyders [address] [place] [address] 11/22/2023 8:45 AM EDT Office Visit Gynecology/Obstetrics Nara Vasques [address] [place] [address] Margoth Ding, [address] [address] 12/06/2023 8:30 AM EDT Office Visit Gynecology/Obstetrics Nara Vasques [address] [place] [address] Priscilla Archer CRNP [address] [place] [address] 12/12/2023 8:45 AM EDT Imaging Maternal Medicine Imaging, Alma Vasques [address] [place] [address] 12/13/2023 9:00 AM EDT Office Visit Gynecology/Obstetrics Nara Snyders [address] [place] [address] Tabatha Funez PA-C [address] [place] [address] 12/19/2023 9:30 AM EDT Office Visit Food Assembler Kitchen Obstetrics Maternal Medicine, [facility] [address] [address] Nelda [place], DO [address] [place] [address] 12/19/2023 9:30 AM EDT Imaging Maternal Medicine Imaging, [facility] [address] [place] [address] 12/20/2023 9:15 AM EDT Office Visit Gynecology/Obstetrics [facility] [address] [facility] [place] [address] Tabatha Funez PA-C [address] [place] [address] 12/27/2023 9:15 AM EDT Office Visit Gynecology/Obstetrics [facility] [address] [facility] [place] [address] Tabatha Funez PA-C [address] [place] [address] 01/01/2024 9:30 AM EDT Office Visit Gynecology/Obstetrics [facility] [address] [facility] [place] [address] Karol Beavers CRNP [address] [place] [address] 03/18/2024 11:30 AM EDT Office Visit [place] [address] [place] [facility] [place] [phone] Lelia Mendoza DO [address] [facility] [place] [address] Pending Results Name Type Priority Associated Diagnoses [...] Negative Ketone, Urine Negative Negative mg/dL Specific [place], Urine 1.020 1.003 - 1.030 Blood, Urine Trace-intact Negative pH, Urine 7.0 5.0 - 7.5 units Protein, Urine Negative Negative mg/dL Urobilinogen, Urine 0.2 0.2 - 1.0 mg/dL Nitrite, Urine Negative Negative Esterase, Urine Small Negative Urine 11/08/2023 Karol NOBLE LAB POINT OF CARE [facility] ENTER/EDIT ORDERABLES documented in this encounter Visit Diagnoses Diagnosis Elderly primigravida- Primary Elderly primigravida, unspecified as to episode of care Chronic hypertension in Benign essential hypertension complicating , childbirth, and the puerperium, unspecified as to episode of care Antepartum multigravida of advanced maternal age Poor growth affecting management of mother, antepartum Poor growth, affecting management of mother, antepartum condition or complication Need for tnemdrvxwr-emwypne-cdurugqga (Tdap) vaccine Need for prophylactic vaccination with combined detnepkqjm-wbsejtr-ycbbewyvb (DTP) vaccine documented in this encounter Care Teams Freight Brakeman Relationship Specialty Start Date End Date Lelia Mendoza DO [address] [place] [address] PCP - General Family Medicine 10/14/23 documented as of this encounter
--- OUTSIDE RECORDS SUMMARY | 2023-12-27 08:58 | External Medical Summary | Summary of Care ---
Author Name Unknown Organization [facility] Address [address] [place] [address] Phone [phone] Care Team Providers Care Inshore Undersea Warfare Officer Name Role Phone Lelia Mendoza DO Primary Care Provider [phone] Reason for Visit * Reason Comments Ultrasound Encounter Details Date Type Department Care Team (Late st Contact Info) Description 10/31/2023 8:15 AM EST Office Visit Executive Wellness Programs Director Obstetrics Maternal Medicine, [place] [address] [place], [place] [id number] Nelda Avina, [address] [place], [place] [id number] Poor growth affecting management of mother, antepartum, single or unspecified fetus*; 31 weeks gestation of Allergies Active Allergy Reactions Criticality Noted Date Comments Amoxicillin Rash 10/16/2016 Pollen 05/08/2023 documented as of this encounter (statuses as of 10/31/2023) Medications Medication Sig Dispensed Refills Start Date [...] as of this encounter (statuses as of 10/31/2023) Active Problems Problem Noted Date Diagnosed Date [...] assessment of proteinuria (24-hour urine protein or oowkqhw-ep-ygelumkggf ratio) and CBC, serum AST/ALT/creatinine. If patient [...] as of this encounter (statuses as of 10/31/2023) Resolved Problems Problem Noted Date Diagnosed Date Resolved Date Supervision of high risk pre gnancy in second trimester 08/09/2023 08/28/2023 with 19 completed weeks gestation 08/09/2023 08/19/2023 Elevated blood pressure affe cting in second trimester, antepartum 07/04/2023 08/02/20 Overview: Elevated BP at 14w Positive test 05/08/202307/05 documented as of this encounter (statuses as of 10/31/2023) Immunizations Name Administration Dates Next Due COVID-19 mRNA, LNP-s, No Pre serve, 2-Dose Series ([employer]) 10/01/2020,09/10/2020 DTWP - Dipth/Tet/Whole Cell Pertussis 04/02/2005 PPD 09/20/2017,09/11/2017 Seasonal Influenza, PF, 6 M & above, IM , (FluLaval or Fluzone) 06/28/2021 Seasonal Influenza, QUAD, wi th Preserv, 6 mons & Above, 0.5 mL, IM 06/16/2020 Seasonal Influenza, Split, IIV3, With Preserve, Inj 07/16/2016,06/21/2015 TD, Preservative Free 11/10/2018 TDAP (age 11 and older)(Adacel) 04/02/2005 documented as of this encounter Social History Tobacco Use Types Packs/Day Years Used Date Smoking Tobacco: Never Smokeless Tobacco: Never Comments:No passive smoke ex posures Alcohol Use Standard Drinks/Week Comments Not Currently 0 (1 standard drink = 0.6 oz pur e alcohol) PHQ-2 Answer Date Recorded PHQ-2 Score 2 08/11/2020 Hunger Vital Sign Answer Date Recorded Within the past 12 months, y ou worried that your food would run out before you got the money to buy more. Patient declined Within the past 12 months, t he food you bought just didn't last and you didn't have money to get more. Patient declined Sargents Depression Scale Answer Date Recorded Sargents Depression Scale Total 8 09/26/2023 The thought of harming myself has occurred to me . Never 09/26/2023 Estimated Date of Delivery Comme nts Yes [...] Sign Reading Time Taken Comments Blood Pressure 146/75 10/31/2023 8:13 AM EST Pulse - - Temperature - - Respiratory Rate - - Oxygen Saturation - - Inhaled Oxygen Concentration - - Weight - - Height - - Body Mass Index - - documented in this encounter Progress Notes * Nelda Avina DO - 10/31/2023 9:54 AM EST Gretchen presented today at 31w0d for an ultrasound for the following indications: Poor growth affecting management of mother, antepartum, single or unspecified fetus 31 weeks gestation of Ultrasound summary: BPP 04/09 with normal amniotic fluid volume. UA Doppler normal with S:D ratio 1.97. I reviewed the ultrasound images. Gretchen was given the opportunity to meet with me if she had any questions. Please refer to the ultrasound report for additional details about today's ultrasound examination. RECOMMENDATIONS: Recommend follow up ultrasound with MFM in 1 weeks for BPP/Doppler secondary to above indications. See prior formal MFM consultation note. Thank you for allowing us to participate in the care of this patient. Please call with any questions. Nelda Avina DO 10/31/2023 9:54 AM documented in this encounter Plan of Treatment Upcoming Encounters Date Type Department Care Team (Late st Contact Info) Description 11/07/2023 1:45 PM EST Office Visit Executive Wellness Programs Director Obstetrics Maternal Medicine, [address] [address] Nelda Avina DO [address] [place] [address] 11/07/2023 1:45 PM EST Imaging Radiology [place] [address] [place] [address] 11/08/2023 9:45 AM EST Office Visit Gynecology/Obstetrics [facility] [address] [place] [address] Karol Beavers CRNP [address] [place] [address] 11/14/2023 2:15 PM EDT Office Visit Executive Wellness Programs Director Obstetrics Maternal Medicine, [place] [address] [place] [address] Richy Person, [address] [place] [address] 11/14/2023 2:15 PM EDT Imaging Radiology [place] [address] [place] [address] 11/21/2023 9:30 AM EDT Imaging Maternal Medicine Imaging, [facility] [address] [place] [address] 12/12/2023 8:45 AM EDT Imaging Maternal Medicine Imaging, [facility] [address] [place] [address] 12/19/2023 9:30 AM EDT Office Visit Executive Wellness Programs Director Obstetrics Maternal Medicine, Al[facility] Snyders [address] [facility] [place] [address] Nelda Avina, DO [address] [facility] [address] 12/19/2023 9:30 AM EDT Imaging Maternal Medicine Imaging, Alma Snyders [address] [place] [address] 03/18/2024 11:30 AM EDT Office Visit [place] [address] [place] [address] Lelia Mendoza, [address] [place] [address] Health Maintenance Due Date Last Done Comments [...] 07/13/2024 07/13/2021, 10/31, 01/23/2016 DTaP,Tdap,and Td Vaccines (3 - Td or Tdap) 11/10/2028 11/10/2018, 04/02/2005, 04/02/2005 COVID-19 Vaccine Completed 07/11/2023, , 10/01/2020, Additional [...] as of this encounter Visit Diagnoses Diagnosis Poor growth affecting management of mother, antepartum, single or unspecified fetus- Primary 31 weeks gestation of state, incidental documented in this encounter Care Teams Inshore Undersea Warfare Officer Relationship Specialty Start Date End Date Lelia Mendoza DO [address] [place] [address] PCP - General Family Medicine 10/14/23 documented as of this encounter
--- OUTSIDE RECORDS SUMMARY | 2023-12-27 08:58 | External Medical Summary | Summary of Care ---
Author Name Unknown Organization [facility] Address [address] [place] [address] Phone [phone] Care Team Providers Care Pig Machine Operator Helper Name Role Phone Lelia Mendoza DO Primary Care Provider [phone] Reason for Visit * Reason Comments Ultrasound Encounter Details Date Type Department Care Team (Late st Contact Info) Description 11/07/2023 1:45 PM EST Office Visit Power Checker Obstetrics Maternal Medicine, [place] [address] [place], [place] [phone] Nelda Avina, [address] [place], [place] [phone] Poor growth affecting management of mother, antepartum, single or unspecified fetus*; 32 weeks gestation of Allergies Active Allergy Reactions [...] assessment of proteinuria (24-hour urine protein or eccqmol-lx-ladjkxuudb ratio) and CBC, serum AST/ALT/creatinine. If patient [...] mRNA, LNP-s, No Pre serve, 2-Dose Series ([employer]) 10/01/2020,09/10/2020 DTWP - Dipth/Tet/Whole Cell Pertussis 04/02/2005 [...] have money to get more. Patient declined [place] Depression Scale Answer Date Recorded [place] Depression Scale Total 8 11/08/2023 The thought [...] Sign Reading Time Taken Comments Blood Pressure 140/78 11/07/2023 1:43 PM EST Pulse - - Temperature - - Respiratory Rate - - Oxygen Saturation - - Inhaled Oxygen Concentration - - Weight - - Height - - Body Mass Index - - documented in this encounter Progress Notes * Nelda Avina DO - 11/08/2023 11:28 AM EST Gretchen presented today at 32w1d for an ultrasound for the following indications: Poor growth affecting management of mother, antepartum, single or unspecified fetus 32 weeks gestation of Ultrasound summary: BPP 04/09 with normal amniotic fluid volume. UA Doppler normal with S:D ratio 2.21. I reviewed the ultrasound images. Gretchen was [...] call with any questions. Nelda Avina DO 11/08/2023 11:28 AM documented in this encounter Plan of Treatment Upcoming Encounters Date Type Department Care Team (Late st Contact Info) Description 11/14/2023 2:15 PM EDT Office Visit Power Checker Obstetrics Maternal Medicine, [place] [address] [place] [address] Richy Person DO [address] [place] [address] 11/14/2023 2:15 PM EDT Imaging Radiology [facility] [place] [address] [place] [address] 11/21/2023 9:30 AM EDT Imaging Maternal Medicine Imaging Alma Vasques 132 [facility] [place] [phone] 11/22/2023 8:45 AM EDT Office Visit [facility] [address] [facility] [place] [address] Mragoth Ding CNM [address] [place], [place] [address] [address] 12/06/2023 8:30 AM EDT Office Visit Gynecology/[facility]stetrics [facility] [place] [address] Priscilla Archer CRNP [address] [place] [address] 12/12/2023 8:45 AM EDT Imaging Maternal Medicine Imaging, Alma Vasques [address] [address] 12/13/2023 9:00 AM EDT Office Visit Gynecology/Obstetrics [facility] [address] [place] [address] Tabatha Funez PA-C [address] [place] [address] 12/19/2023 9:30 AM EDT Office Visit Power Checker Obstetrics Maternal Medicine, [facility] [address] [place] [address] Nelda Avina, DO [address] [place] [address] 12/19/2023 9:30 AM EDT Imaging Maternal Medicine Imaging, Alma Vasques [address] [address] 12/20/2023 9:15 AM EDT Office Visit Gynecology/Obstetrics [facility] [address] [place] [address] Tabatha Funez PA-C [address] [place] [address] 12/27/2023 9:15 AM EDT Office Visit Gynecology/Obstetrics [facility] [address] [place] [address] Tabatha Funez PA-C [address] [place] [address] 01/01/2024 9:30 AM EDT Office Visit Gynecology/Obstetrics [facility] [address] [place] [address] Karol Beavers CRNP [address] [place] [address] 03/18/2024 11:30 AM EDT Office Visit Family Practice, [place] [address] [place] [address] Lelia Mendoza DO [address] [place] [address] Scheduled Orders Name Type Priority Associated Diagnoses Orde r Schedule MFM US PREG LMT 1 OR MORE FETUSES Medical Imaging Routine Poor growth affecting management of mother, antepartum, single or unspecified fetus 32 weeks gestation of 3 Occurrences starting 11/08/2023 until 01/07/2024 Health Maintenance Due Date Last Done Comments [...] mother, antepartum, single or unspecified fetus- Primary 32 weeks gestation of state, incidental documented in this encounter Care Teams Pig Machine Operator Helper Relationship Specialty Start Date End Date Lelia Mendoza DO [address] [place] [address] PCP - General Family Medicine 10/14/23 documented as of this encounter
--- OUTSIDE RECORDS SUMMARY | 2023-12-27 08:59 | External Medical Summary | Summary of Care ---
Author Name Unknown Organization [facility] Address [address] [place] [address] Phone [phone] Care Team Providers Care Mapping Specialist Name Role Phone Trey Mendozaa Rehan LOYOLA Primary Care Provider [phone] Encounter Details Date Type Department Care Team (Late st Contact Info) Description 10/24/2023 11:45 AM EST Office Visit Verification Lead Obstetrics Maternal Medicine, [address] [address] Nelda Avina, DO [address] [place] [address] Chronic hypertension in *; Poor growth affecting management of mother, antepartum, single or unspecified fetus; Antepartum multigravida of advanced maternal age; Ultrasound for screening for growth restriction; 30 weeks gestation of Allergies Active Allergy Reactions Criticality Noted Date Comments Amoxicillin Rash 10/16/2016 Pollen 05/08/2023 documented as of this encounter (statuses as of 10/24/2023) Medications Medication Sig Dispensed Refills Start Date [...] mouth in the morning. 0 07/04/2023 Active Mupirocin 2 % External Ointment (Bactroban)Indicat ions:Acute sinusitis, recurrence not specified, unspecified location,Skin infection Apply topically to affected area 3 times a day for 14 days. To affected area for up to 14 days. 22 g 1 10/14/2023 10/28/2023 Active Additional Information Patient not taking.Reported on 10/18/2023 Cephalexin 500 MG Oral CapsuleIndications :Acute sinusitis, recurrence not specified, unspecified location,Skin infection Take 1 Capsule by mouth in the morning and 1 Capsule at noon and 1 Capsule before bedtime. Do all this for 10 days. 30 Capsule 0 10/14/2023 10/24/2023 Active documented as of this encounter (statuses as of 10/24/2023) Active Problems Problem Noted Date Diagnosed Date Poor growth affecting management of mother, antepartum 10/04/2023 Overview: EFW 8th %ile at 27 weeks; weekly BPP/NST and dopplers per MFM Last Assessment & Plan: EFW just abot 10%ile. Will continue weekly surveillance until next growth assessment. Antepartum multigravida of advanced maternal age 1208/09/2023 Overview: Age 38 at delivery NIPT: low risk / boy MF anatomy scan scheduled 08/19/2023 Last Assessment & [...] to reassess in about 3-4 weeks. High-risk 08/01/2023 Chronic hypertension in 08/01/2023 Overview: Chronic hypertension [...] assessment of proteinuria (24-hour urine protein or gxijhkb-vg-xpmhlbhtre ratio) and CBC, serum AST/ALT/creatinine. If patient [...] as of this encounter (statuses as of 10/24/2023) Resolved Problems Problem Noted Date Diagnosed Date Resolved Date Supervision of high risk pre gnancy in second trimester 08/09/2023 08/28/2023 with 19 completed weeks gestation 08/09/2023 08/19/2023 Elevated blood pressure affe cting in second trimester, antepartum 07/04/2023 12/01/20 23 Overview: Elevated BP at 14w Positive test 05/08/2023 11/3 documented as of this encounter (statuses as of 10/24/2023) Immunizations Name Administration Dates Next Due COVID-19 [...] have money to get more. Patient declined Epps Depression Scale Answer Date Recorded Epps Depression Scale Total 8 09/26/2023 The thought [...] Progress Notes * Nelda Avina DO - 10/24/2023 4:10 PM EST Gretchen presented today at 30w0d for an ultrasound for the following indications: Chronic hypertension in Poor growth affecting management of mother, antepartum, single or unspecified fetus Assessment & Plan: EFW just abot 10%ile. Will continue weekly surveillance until next growth assessment. Antepartum multigravida of advanced maternal age Ultrasound for screening for growth restriction 30 weeks gestation of Ultrasound summary: Patient presented at 30w 0d for growth assessment. AC noted at 18% with overall EFW of 1313 g at 12%. CHASE 26.4 cm. Umbilical artery Doppler normal. Cephalic presentation. BPP 04/09. I reviewed the ultrasound images. Gretchen was [...] call with any questions. Nelda Avina DO 10/24/2023 4:10 PM documented in this encounter Miscellaneous Notes * Assessment & Plan Note - Nelda Avina DO - 10/24/2023 4:10 PM EST Associated Problem(s): Poor growth affecting management of mother, antepartum EFW just abot 10%ile. Will continue weekly surveillance until next growth assessment. documented in this encounter Plan of Treatment Upcoming Encounters Date Type Department Care Team (Late st Contact Info) Description 10/25/2023 11:15 AM EST Office Visit Gynecology/Obstetrics [address] [place] [address] Karol Beavers CRNP [address] [facility] [place] [address] 10/31/2023 8:15 AM EST Office Visit Verification Lead Obstetrics Maternal Medicine, [place] [address] [place] [address] FabriceSusanne enriquezmichael Stauffer, [address] [place] [address] 10/31/2023 8:15 AM EST Imaging Radiology [facility], [place] [address] [place] [address] 11/07/2023 1:45 PM EST Office Visit Verification Lead Obstetrics Maternal Medicine, [address] [address] Susanne Avinane Jones Pey[place], [address] [place] [address] 11/07/2023 1:45 PM EST Imaging Radiology [facility], [place] [address] [place] [address] 11/14/2023 2:15 PM EDT Office Visit Verification Lead Obstetrics Maternal Medicine, [address] [address] Richy Person, [address] [place] [address] 11/14/2023 2:15 PM EDT Imaging Radiology [facility], [address] [address] 11/21/2023 9:30 AM EDT Imaging Maternal Medicine Imaging, Alma Vasques [address] [place] [address] 12/12/2023 8:45 AM EDT Imaging Maternal Medicine Imaging, Alma Vasques [address] [place] [address] 12/19/2023 9:30 AM EDT Office Visit Verification Lead Obstetrics Maternal Medicine, [facility] [address] [place] [address] Nelda Avina, DO [address] [place] [address] 12/19/2023 9:30 AM EDT Imaging Maternal Medicine Imaging, [facility] 132 [facility] [place] [address] 03/18/2024 11:30 AM EDT Office Visit [facility] [address] [place] [phone] Lelia Mendoza, [address] [place] [address] Health Maintenance Due Date Last Done Comments [...] puerperium, unspecified as to episode of care Poor growth affecting management of mother, antepartum, single or unspecified fetus Antepartum multigravida of advanced maternal age Ultrasound for screening for growth restriction screening for growth retardation using ultrasonics 30 weeks gestation of state, incidental documented in this encounter Care Teams Mapping Specialist Relationship Specialty Start Date End Date Lelia Mendoza DO [address] [place] [address] PCP - General Family Medicine 10/14/23 documented as of this encounter
--- OUTSIDE RECORDS SUMMARY | 2023-12-27 08:59 | External Medical Summary | Summary of Care ---
Author Name Unknown Organization [facility] Address [address] [place] [address] Phone [phone] Care Team Providers Care Customer Supply Chain Analyst Name Role Phone Lelia Mendoza DO Primary Care Provider [phone] Reason for Visit * Reason Comments Return Visit Encounter Details Date Type Department Care Team (Late st Contact Info) Description 10/25/2023 11:15 AM EST Office Visit Gynecology/Obstetric s [facility] [address] [place] [address] Karol Beavers CRNP [address] [place] [address] Primigravida of advanced maternal age in third trimester*; High-risk in third trimester; Chronic hypertension in ; Antepartum multigravida of advanced maternal age; Poor growth affecting management of mother, antepartum, single or unspecified fetus Allergies Active Allergy Reactions Criticality Noted Date Comments Amoxicillin Rash 10/16/2016 Pollen 05/08/2023 documented as of this encounter (statuses as of 10/25/2023) Medications Medication Sig Dispensed Refills Start Date [...] 07/04/2023 Active Mupirocin 2 % External Ointment (Bactroban)Indicati ons:Acute sinusitis, recurrence not specified, unspecified location,Skin infection Apply topically to affected area 3 times a day for 14 days. To affected area for up to 14 days. 22 g 1 10/14/2023 10/28/2023 Active Additional Information Patient not taking.Reported on 10/18/2023 documented as of this encounter (statuses as of 10/25/2023) Active Problems Problem Noted Date Diagnosed Date [...] assessment of proteinuria (24-hour urine protein or tiujbze-vr-ibgsigkmoz ratio) and CBC, serum AST/ALT/creatinine. If patient [...] as of this encounter (statuses as of 10/25/2023) Resolved Problems Problem Noted Date Diagnosed Date Resolved Date Supervision of high risk pre gnancy in second trimester 08/09/2023 08/28/2023 with 19 completed weeks gestation 08/09/2023 08/19/2023 Elevated blood pressure affe cting in second trimester, antepartum 07/04/2023 08/02/20 Overview: Elevated BP at 14w Positive test 05/08/2023 11/3 documented as of this encounter (statuses as of 10/25/2023) Immunizations Name Administration Dates Next Due COVID-19 [...] have money to get more. Patient declined Scheller Depression Scale Answer Date Recorded Scheller Depression Scale Total 8 09/26/2023 The thought [...] Sign Reading Time Taken Comments Blood Pressure 132/78 10/25/2023 11:12 AM EST Pulse - - Temperature - - Respiratory Rate - - Oxygen Saturation - - Inhaled Oxygen Concentration - - Weight 84.4 kg (186 lb) 10/25/2023 11:12 AM EST Height 160 cm (5' 3") 10/25/2023 11:12 AM EST Body Mass Index 32.95 10/25/2023 11:12 AM EST documented in this encounter Progress Notes * Karol Beavers CRNP - 10/25/2023 11:42 AM EST 30w1d Had MFM appt yesterday, growth improved. Mild polyhydramnios. Following with MFM weekly. Getting over a sinus infection. Still on antibiotics. Will defer TDAP to next appt. Baby is active. No contractions, bleeding, or LOF. AIDE Nick documented in this encounter Nursing Notes * Sharon Magaña LPN - 10/25/2023 11:21 AM EST 30w1d Finishing last day of ATB and still with some lingering sinus infections- considering deferring tdapto next visit. Saw MFM yesterday for US, doppler, BPP: Patient presented at 30w 0d for growth assessment. AC noted at 18% with overall EFW of 1313 g at 12%. CHASE 26.4 cm. Umbilical artery Doppler normal. Cephalic presentation. BPP 04/09. documented in this encounter Plan of Treatment Upcoming Encounters Date Type Department Care Team (Late st Contact Info) Description 10/31/2023 8:15 AM EST Office Visit Pass Worker Obstetrics Maternal Medicine, [address] [address] Nelda Avina [place] [address] 10/31/2023 8:15 AM EST Imaging [facility] [place] [address] [place] [address] 11/07/2023 1:45 PM EST Office Visit Pass Worker Obstetrics Maternal Medicine, [place] [address] [place] [address] FabriceNelda Jones Pey[place], [address] [place] [address] 11/07/2023 1:45 PM EST Imaging Radiology [place] [address] [place] [address] 11/08/2023 9:45 AM EST Office Visit Gynecology/Obstetrics [facility] [address] [place] [address] Karol Beavers CRNP [address] [place] [address] 11/14/2023 2:15 PM EDT Office Visit Pass Worker Obstetrics Maternal Medicine, [place] [address] [place] [address] Richy Person, [address] [place] [address] 11/14/2023 2:15 PM EDT Imaging Radiology [place] [address] [place] [address] 11/21/2023 9:30 AM EDT Imaging Maternal Medicine Imaging, Alma Snyders [address] [facility] [place] [address] 12/12/2023 8:45 AM EDT Imaging Maternal Medicine Imaging, Alma Vasques [address] [place] [address] 12/19/2023 9:30 AM EDT Office Visit Pass Worker Obstetrics Maternal Medicine, [place] [address] [place] [address] Nelda Avina, [address] [place] [address] 12/19/2023 9:30 AM EDT Imaging Maternal Medicine Imaging, [facility] [address] [place] [address] 03/18/2024 11:30 AM EDT Office Visit [facility] [address] [facility], [place] [phone] Lelia Mendoza, DO [address] [facility] [address] Health Maintenance Due Date Last Done Comments [...] as of this encounter Visit Diagnoses Diagnosis Primigravida of advanced maternal age in third trimester- Primary High-risk in third trimester Chronic hypertension in Benign essential hypertension complicating , childbirth, and the puerperium, unspecified as to episode of care Antepartum multigravida of advanced maternal age Poor growth affecting management of mother, antepartum, single or unspecified fetus documented in this encounter Care Teams Customer Supply Chain Analyst Relationship Specialty Start Date End Date Lelia Mendoza DO [address] [place] [address] PCP - General Family Medicine 10/14/23 documented as of this encounter
--- OUTSIDE RECORDS SUMMARY | 2023-12-27 08:59 | External Medical Summary | Summary of Care ---
Author Name Unknown Organization [facility] Address [address] [place] [address] Phone [phone] Care Team Providers Care Scientific Linguist Name Role Phone eLlia Mendoza DO Primary Care Provider [phone] Reason for Visit * Reason Comments Ultrasound Encounter Details Date Type Department Care Team (Late st Contact Info) Description 10/18/2023 8:00 AM EST Office Visit [facility], [place] [address], [place] [phone] Richy Person [address], [place] [phone] Poor growth affecting management of mother, antepartum, single or unspecified fetus*; Chronic hypertension in ; Antepartum multigravida of advanced maternal age Allergies Active Allergy Reactions Criticality Noted Date Comments Amoxicillin Rash 10/16/2016 Pollen 05/08/2023 documented as of this encounter (statuses as of 10/18/2023) Medications Medication Sig Dispensed Refills Start Date [...] as of this encounter (statuses as of 10/18/2023) Active Problems Problem Noted Date Diagnosed Date Poor growth affecting management of mother, antepartum 10/04/2023 Overview: EFW 8th %ile at 27 weeks; weekly BPP/NST and dopplers per [facility] Last Assessment & Plan: She presents for follow-up of growth restriction. She has a history of AMA and CHTN (not on medications). Today's ultrasound notes the following: The umbilical artery Doppler testing is normal. A BPP is 8/8. The CHASE is normal. Antepartum multigravida of advanced maternal age 1208/09/2023 Overview: Age 38 at delivery NIPT: low risk / boy [facility] anatomy scan scheduled 08/19/2023 Last Assessment & [...] assessment of proteinuria (24-hour urine protein or ugnzqfn-vc-ajkpxzqrzv ratio) and CBC, serum AST/ALT/creatinine. If patient [...] as of this encounter (statuses as of 10/18/2023) Resolved Problems Problem Noted Date Diagnosed Date Resolved Date Supervision of high risk pre gnancy in second trimester 08/09/2023 08/28/2023 with 19 completed weeks gestation 08/09/2023 08/19/2023 Elevated blood pressure affe cting in second trimester, antepartum 07/04/2023 08/02/20 23 Overview: Elevated BP at 14w Positive test 05/08/202307/05 documented as of this encounter (statuses as of 10/18/2023) Immunizations Name Administration Dates Next Due COVID-19 [...] have money to get more. Patient declined [place] Depression Scale Answer Date Recorded [place] Depression Scale Total 8 09/26/2023 The thought [...] Sign Reading Time Taken Comments Blood Pressure 143/70 10/18/2023 7:49 AM EST Pulse - - Temperature - - Respiratory Rate - - Oxygen Saturation - - Inhaled Oxygen Concentration - - Weight - - Height - - Body Mass Index - - documented in this encounter Progress Notes * Richy Person, - 10/18/2023 8:39 AM EST MATERNAL MEDICINE VISIT Gretchen Mosquera presented today at 29w1d to [facility] for an ultrasound. She is being seen today by Maternal- Medicine for the following reasons: Problem List Items Addressed This Visit Chronic hypertension in Antepartum multigravida of advanced maternal age Poor growth affecting management of mother, antepartum - Primary She presents for follow-up of growth restriction. She has a history of AMA and CHTN (not on medications). Today's ultrasound notes the following: The umbilical artery Doppler testing is normal. A BPP is 8/8. The CHASE is normal. I reviewed the ultrasound images. Gretchen Mosquera was given the opportunity to meet with me if she had any questions. Please refer to the ultrasound report for additional details about today's ultrasound examination. RECOMMENDATIONS: Recommend follow up ultrasound with [facility] in 1 week for BPP/Doppler/growth secondary to FGR. Please see prior [facility] documentation. Thank you for allowing us to participate in the care of this patient. Please call with any questions. Richy Person DO 10/18/2023 8:39 AM documented in this encounter Miscellaneous Notes * Assessment & Plan Note - Richy Person DO - 10/18/2023 8:37 AM EST Associated Problem(s): Poor growth affecting management of mother, antepartum She presents for follow-up of growth restriction. She has a history of AMA and CHTN (not on medications). Today's ultrasound notes the following: The umbilical artery Doppler testing is normal. A BPP is 8/8. The CHASE is normal. documented in this encounter Plan of Treatment Upcoming Encounters Date Type Department Care Team (Late st Contact Info) Description 10/24/2023 11:45 AM EST Imaging Maternal Medicine Imaging, [facility] Vas[facility] [address] [place] [address] 10/25/2023 11:15 AM EST Office Visit Gynecology/Obstetrics Nara Vasques [address] [facility] [place] [address] Karol Beavers CRNP [address] [place] [address] 11/21/2023 9:30 AM EDT Imaging Maternal Medicine Imaging, [place] Vas[facility] [address] [place] [phone] 12/19/2023 9:30 AM EDT Office Visit [facility], [place] [facility] [address] [facility] [place] [address] Nelda Avina DO [address] [place] [address] 12/19/2023 9:30 AM EDT Imaging Maternal Medicine [facility] [place] [address] 03/18/2024 11:30 AM EDT Office Visit [facility] [address] [place] [phone] Lelia Mendoza DO [address] [place], [place] [phone] Health Maintenance Due Date Last Done Comments [...] mother, antepartum, single or unspecified fetus- Primary Chronic hypertension in Benign essential hypertension complicating , childbirth, and the puerperium, unspecified as to episode of care Antepartum multigravida of advanced maternal age documented in this encounter Care Teams Scientific Linguist Relationship Specialty Start Date End Date Lelia Mendoza DO [address] [place] [address] PCP - General Family Medicine 10/14/23 documented as of this encounter
--- OUTSIDE RECORDS SUMMARY | 2023-12-27 09:00 | External Medical Summary | Summary of Care ---
Author Name Unknown Organization [facility] Address [address] [place] [address] Phone [phone] Care Team Providers Care Improvement Lead Name Role Phone Joseline Brian MD Primary Care Provider + Encounter Details Date Type Department Care Team (Late st Contact Info) Description 10/10/2023 2:30 PM EST Office Visit Mobile Sales [facility] Obstetrics Maternal Medicine, [address] [address] Nelda Avina, DO [address] [place], [place] [phone] Chronic hypertension in *; Poor growth affecting management of mother, antepartum, single or unspecified fetus; 28 weeks gestation of Allergies Active Allergy Reactions Criticality Noted Date Comments Amoxicillin Rash 10/16/2016 Pollen 05/08/2023 documented as of this encounter (statuses as of 10/11/2023) Medications Medication Sig Dispensed Refills Start Date [...] as of this encounter (statuses as of 10/11/2023) Active Problems Problem Noted Date Diagnosed Date Poor growth affecting management of mother, antepartum 10/04/2023 Overview: EFW 8th %ile at 27 weeks; weekly BPP/NST and dopplers per M Last Assessment & Plan: EFW today has dropped from 10%ile to 8%ile. While this is not a large change, it is now classified as growth restriction. Normal CHASE with normal UA Doppler as well as BPP 04/09. Low risk NIPT appreciated. CONSIDERATIONS: We discussed the diagnosis of growth restriction (FGR) based on the finding of an estimated weight and/or abdominal circumference less than 10th percentile. Based on timing of initial diagnosis, FGR can be classified as early (less than 32 weeks) or late (greater than or equal to 32 weeks); severe FGR indicates EFW 3rd percentile. We discussed possible etiologies of FGR, which may include the following: Constitutional, viral infections, placental insufficiency, maternal medical conditions, smoking, aneuploidy, other genetic syndromes and incorrect dating. In this case, Gretchen has CHTN however BP has been stable thus far without medication. The increased risk of stillbirth was discussed, and the importance of daily kick counts was reinforced. RECOMMENDATIONS: Given the non-severe FGR (EFW greater than or equal to 3rd percentile) and normal Umbilical Artery (UA) Doppler velocimetry noted today we recommend: UA Doppler assessments weekly (this can be spaced to 2 weeks per patient preference after 2 consecutive normal assessments); BPP will be performed concurrently. growth ultrasound every 3-4 weeks. surveillance 1x per week with BPP or NST Delivery at 39 weeks pending ongoing assessment. Antepartum multigravida of advanced maternal age [...] assessment of proteinuria (24-hour urine protein or pqqtidr-hw-whhflbckoa ratio) and CBC, serum AST/ALT/creatinine. If patient [...] as of this encounter (statuses as of 10/11/2023) Resolved Problems Problem Noted Date Diagnosed Date Resolved Date Supervision of high risk pre gnancy in second trimester 08/09/2023 08/28/2023 with 19 completed weeks gestation 08/09/2023 08/19/2023 Elevated blood pressure affe cting in second trimester, antepartum 07/04/2023 08/02/20 Overview: Elevated BP at 14w Positive test 05/08/202307/05 documented as of this encounter (statuses as of 10/11/2023) Immunizations Name Administration Dates Next Due COVID-19 mRNA, LNP-s, No Pre serve, 2-Dose Series (RB-Doors) 10/01/2020,09/10/2020 DTWP - Dipth/Tet/Whole Cell Pertussis 04/02/2005 [...] got the money to buy more. Patient refused Within the past 12 months, t he food you bought just didn't last and you didn't have money to get more. Patient refused Mary D Depression Scale Answer Date Recorded Mary D Depression Scale Total 8 09/26/2023 The thought [...] Progress Notes * Nelda Avina DO - 10/11/2023 8:16 AM EST Gretchen presented today at 28w1d for an ultrasound for the following indications: Chronic hypertension in Poor growth affecting management of mother, antepartum, single or unspecified fetus 28 weeks gestation of Ultrasound summary: BPP 88 with normal amniotic fluid volume. UA Doppler normal with S:D ratio 2.76. I reviewed the ultrasound images. Gretchen was [...] call with any questions. Nelda Avina DO 10/11/2023 8:16 AM documented in this encounter Plan of Treatment Upcoming Encounters Date Type Department Care Team (Late st Contact Info) Description 10/11/2023 9:30 AM EST Laboratory Laboratory, Nara Vasques [place] [address] [place] [phone] Jim Vasques [address] [place] [address] 10/11/2023 9:45 AM EST Office Visit Gynecology/Obstetrics [place] [address] Karol Beavers CRNP [address] [place] [address] 10/18/2023 8:00 AM EST Office Visit Mobile Sales [facility] Obstetrics Maternal Medicine, [place] [address] [place] [address] Richy Person, [address] [place] [address] 10/18/2023 8:00 AM EST Imaging [facility], [place] [address] [place] [address] 10/24/2023 11:45 AM EST Imaging Maternal Medicine Imaging, [address] [place] [phone] 11/21/2023 9:30 AM EDT Imaging Maternal Medicine Imaging, [address] [place] [phone] 12/19/2023 9:30 AM EDT Office Visit Mobile Sales [facility] Obstetrics Maternal Medicine, [address] [place] [address] Nelda Avina, [address] [place] [address] 12/19/2023 9:30 AM EDT Imaging Maternal Medicine Imaging, [place] [address] Health Maintenance Due Date Last Done Comments Hepatitis B (1 of 3 - 3-dose series) 1986 HPV/Co-Test 2016 Depression Screening 08/11/2021 08/11/2020 Influenza [...] of mother, antepartum, single or unspecified fetus 28 weeks gestation of state, incidental documented in this encounter Care Teams Improvement Lead Relationship Specialty Start Date End Date Joseline Brian MD [address] [place] [address] PCP - General Internal Medicine 10/07/23 documented as of this encounter
--- OUTSIDE RECORDS SUMMARY | 2023-12-27 09:00 | External Medical Summary | Summary of Care ---
Author Name Unknown Organization [facility] Address [address] [place] [address] Phone [phone] Care Team Providers Care Special Education Aide Name Role Phone Joseline Brian MD Primary Care Provider + Reason for Visit * Reason Comments Return Visit Encounter Details Date Type Department Care Team (Late st Contact Info) Description 10/11/2023 9:45 AM EST Office Visit Gynecology/Obstetric s Nara Vasques [address] [place] [address] Karol Beavers CRNP [address] [place] [address] Primigravida of advanced maternal age in third [...] assessment of proteinuria (24-hour urine protein or euvpbiz-me-jvmczqjnjk ratio) and CBC, serum AST/ALT/creatinine. If patient [...] mRNA, LNP-s, No Pre serve, 2-Dose Series (Fangxinmei) 10/01/2020,09/10/2020 DTWP - Dipth/Tet/Whole Cell Pertussis 04/02/2005 [...] have money to get more. Patient refused [place] Depression Scale Answer Date Recorded [place] Depression Scale Total 8 09/26/2023 The thought [...] Sign Reading Time Taken Comments Blood Pressure 148/84 10/11/2023 9:44 AM EST Pulse - - Temperature - - Respiratory Rate - - Oxygen Saturation - - Inhaled Oxygen Concentration - - Weight 82.6 kg (182 lb) 10/11/2023 9:44 AM EST Height 160 cm (5' 3") 10/11/2023 9:44 AM EST Body Mass Index 32.24 10/11/2023 9:44 AM EST documented in this encounter Progress Notes * Karol Beavers CRNP - 10/11/2023 10:16 AM EST 28w1d Has FGR, was seen by MFM yesterday. Umbilical artery dopplers WNL. Discussed FKC, getting very appropriate movement. No contractions or bleeding. Glucola today. Will defer TDAP to next visit d/t URI symptoms. AIDE Nick documented in this encounter Nursing Notes * Heidi Hope LPN - 10/11/2023 9:48 AM EST 28w1d Doing glucola today Questions about the plan documented in this encounter Plan of Treatment Upcoming Encounters Date Type Department Care Team (Late st Contact Info) Description 10/18/2023 8:00 AM EST Office Visit [facility] Drafter Obstetrics Maternal Medicine, [place] [address] [place] [address] Richy Person, [address] [place] [address] 10/18/2023 8:00 AM EST Imaging [facility], [place] [address] [place] [address] 10/24/2023 11:45 AM EST Imaging Maternal Medicine Imaging, Al[facility] Vasques [address] [place] [address] 10/25/2023 11:15 AM EST Office Visit Gynecology/Obstetrics Nara Vasques [address] [place] [address] Karol Beavers CRNP [address] [place] [address] 11/21/2023 9:30 AM EDT Imaging Maternal Medicine Imaging, Alma Vasques [address] [place] [phone] 12/19/2023 9:30 AM EDT Office Visit [facility], [place] [facility] [address] [place] [address] Nelda Avina, [address] [place] [address] 12/19/2023 9:30 AM EDT Imaging Maternal Medicine Imaging, Alma Vasques [address] [place] [address] Pending Results Name Type Priority Associated Diagnoses Date /Time CULTURE, URINE, QUANTITATIVE Lab Routine Primigravida of advanced maternal age in third trimester 10/11/2023 10:23 AM EST PROTEIN/ CREATININE RATIO, URINE Lab Routine Chronic hypertension in 10/11/2023 10:23 AM EST Health Maintenance Due Date Last [...] fetus documented in this encounter Care Teams Special Education Aide Relationship Specialty Start Date End Date Joseline Brian MD [address] [place] [address] PCP - General Internal Medicine 10/07/23 documented as of this encounter
--- OUTSIDE RECORDS SUMMARY | 2023-12-27 09:00 | External Medical Summary ---
Author Name Unknown Address Unknown Organization [id number]:[facility] [place] [address] [place] [address] Laboratory Report Ordering Provider Test Date Status SUHAS WHITNEY 10/11/2023 10:29:24 Final Observation Date Value Abnormality Reference (Units ) Status WBC, Total 10/11/2023 10:29:24 14.28 Above high normal 4 .00-10.80 (K/uL) Final RBC 10/11/2023 10:29:24 4.03 3.85-5.15 (M/uL) Final Hemoglobin 10/11/2023 10:29:24 12.9 12.0-15.3 (g/dL) Final Anemia reflex testing trigge rs on a HGB < 12.0 for Females and HGB < 13.0 for Males in accordance with the WHO Anemia Guidelines
Anemia reflex testing triggers on a HGB < 12.0 for Females and HGB < 13.0 for Males in accordance with the WHO Anemia Guidelines HCT 10/11/2023 10:29:24 40.5 36.0-45.2 (%) Final MCV 10/11/2023 10:29:24 100.5 81.5-97.5 (fL) Final MCH 10/11/2023 10:29:24 32.0 27.0-34.0 (pg) Final MCHC 10/11/2023 10:29:24 31.9 32.0-36.0 (g/dL) Final RDW 10/11/2023 10:29:24 13.8 11.5-15.5 (%) Final Platelets 10/11/2023 10:29:24 298 140-400 (K /uL) Final MPV 10/11/2023 10:29:24 11.2 6.6-11.1 ( fL) Final Nucleated erythrocytes/100 leukocytes [Ratio] in Blood by Automated count 10/11/2023 10:29:24 0 <=0 (/100 WBCs) Fi nal Performing Location [facility]ATORY [facility] - [address] [place] [address]
--- OUTSIDE RECORDS SUMMARY | 2023-12-27 09:00 | External Medical Summary ---
Author Name Unknown Address Unknown Organization [id number]:[facility] [place] [address] [place] [address] Laboratory Report Ordering Provider Test Date Status DEVONTESUHAS 10/11/2023 10:29:24 Final Observation Date Value Abnormality Reference (Units ) Status Treponema pallidum Ab [Presence] in Serum by Immunoassay 10/11/2023 10:29:24 Nonreactive Nonreactive Final No serologic evidence of syp hilis. No additional testing clinicially indicated at this time. Consider repeat testing in 2-4 weeks if acute or primary syphilis is suspected. Performing Location LAB[facility]ATORY [facility] [place] [address] [place] [address]
--- OUTSIDE RECORDS SUMMARY | 2023-12-27 09:00 | External Medical Summary ---
Author Name Unknown Address Unknown Organization [id number]:[facility] - [address] [place] [address] Laboratory Report Ordering Provider Test Date Status SUHAS WIHTNEY 10/11/2023 10:29:24 Final Observation Date Value Abnormality Reference (Units ) Status SYNC LEUKOCYTES IN BLOOD BY AUTOMATED COUNT 10/11/2023 10:29:24 14.28 Above high normal 4.00-10.80 (K/uL) Final Segs 10/11/2023 10:29:24 78.3 Above high normal 40.0-75.0 (%) Final Lymphs % 10/11/2023 10:29:24 11.7 Below low normal 18.0-42.0 (%) Final Monos 10/11/2023 10:29:24 6.5 1.0-11.0 (%) Final Eosinophils 10/11/2023 10:29:24 1.5 0.0-6.0 (%) Final Basos 10/11/2023 10:29:24 0.5 0.0-2.0 (%) Final Immature Granulocyte, Percent 10/11/2023 10:29:24 1.5 0.0-2.0 (%) Final Absolute Segs 10/11/2023 10:29:24 11.18 Above high normal 1.80-7.70 (K/uL) Final Lymphs, absolute 10/11/2023 10:29:24 1.67 1.00-4.80 (K/ul) Final Monos, Abs 10/11/2023 10:29:24 0.93 0.00-1.10 (K/uL) Final Eos, Abs 10/11/2023 10:29:24 0.22 0.00-0.70 (K/uL) Final Basos, Abs 10/11/2023 10:29:24 0.07 0.00-0.20 (K/uL) Final Immature Granulocytes, Number 10/11/2023 10:29:24 0.21 Above high normal 0.00-0.20 (K/uL) Final Performing Location [facility] [place] [address] [place] [address]
--- OUTSIDE RECORDS SUMMARY | 2023-12-27 09:00 | External Medical Summary ---
Author Name Unknown Address Unknown Organization [id number]:LABORATORY [facility] [place] [address] - [address] [place] [address] Laboratory Report Ordering Provider Test Date Status MARISELA WHITNEYFARHAN 10/11/2023 10:29:24 Final Observation Date Value Abnormality Reference (Units ) Status Glucose [Moles/volume] in Serum or Plasma --1 hour post 50 g glucose PO 10/11/2023 10:29:24 118 70-129 (mg/dL) Final Performing Location LABORATORY [facility] [place] [address] [place] [address]
--- OUTSIDE RECORDS SUMMARY | 2023-12-27 09:00 | External Medical Summary | Summary of Care ---
Author Name Unknown Organization [facility] Address [address] [place] [address] Phone [phone] Care Team Providers Care Car Supplier Name Role Phone Lelia Mendoza DO Primary Care Provider [phone] Reason for Visit * Reason Onset Date Comments Cold Symptoms Cold Symptoms 10/14/2023 Encounter Details Date Type Department Care Team (Latest Contact Info) Description 10/14/2023 3:30 PM EST Convenient Care Visit [facility] [address] [place] [address] Christian Del Rio PA-C [address], [place] [id number] Acute sinusitis, recurrence not specified, unspecified location*; Skin infection Allergies Active Allergy Reactions Criticality Noted Date Comments Amoxicillin Rash 10/16/2016 Pollen 05/08/2023 documented as of this encounter (statuses as of 10/14/2023) Medications Medication Sig Dispensed Refills Start Date [...] days. 22 g 1 10/14/2023 10/28/2023 Active Cephalexin 500 MG Oral CapsuleIndications: Acute sinusitis, recurrence not specified, unspecified location,Skin infection Take 1 Capsule by mouth in the morning and 1 Capsule at noon and 1 Capsule before bedtime. Do all this for 10 days. 30 Capsule 0 10/14/2023 10/24/2023 Active documented as of this encounter (statuses as of 10/14/2023) Active Problems Problem Noted Date Diagnosed Date Poor growth affecting management of mother, antepartum 10/04/2023 Overview: EFW 8th %ile at 27 weeks; weekly BPP/NST and dopplers per [facility] Last Assessment & Plan: EFW today has [...] assessment of proteinuria (24-hour urine protein or todqjol-ja-smckmeglxz ratio) and CBC, serum AST/ALT/creatinine. If patient [...] as of this encounter (statuses as of 10/14/2023) Resolved Problems Problem Noted Date Diagnosed Date Resolved Date Supervision of high risk pre gnancy in second trimester 08/09/2023 08/28/2023 with 19 completed weeks gestation 08/09/2023 08/19/2023 Elevated blood pressure affe cting in second trimester, antepartum 07/04/2023 08/02/20 Overview: Elevated BP at 14w Positive test 05/08/202307/05 documented as of this encounter (statuses as of 10/14/2023) Immunizations Name Administration Dates Next Due COVID-19 mRNA, LNP-s, No Pre serve, 2-Dose Series ([employer]) 10/01/2020,09/10/2020 DTWP - Dipth/Tet/Whole Cell Pertussis 04/02/2005 [...] have money to get more. Patient refused [place] Depression Scale Answer Date Recorded [place] Depression Scale Total 8 09/26/2023 The thought [...] Reading Time Taken Comments Blood Pressure 138/86 10/14/2023 3:38 PM EST Pulse 118 10/14/2023 3:38 PM EST Temperature 36.6 C (97.9 F) 10/14/2023 3:38 PM ES T Respiratory Rate 16 10/14/2023 3:38 PM EST Oxygen Saturation 97% 10/14/2023 3:38 PM EST Inhaled Oxygen Concentration - - Weight 83.6 kg (184 lb 5.4 oz) 10/14/2023 3:38 P M EST Height - - Body Mass Index 32.65 10/11/2023 9:44 AM EST documented in this encounter Patient Instructions * Patient Instructions* Christian Del Rio PA-C - 10/14/2023 4:32 PM EST Mupirocin 2-3x a day for two weeks in nose Keflex every 8 hours for 10 days. Start a daily nasal spray such as Flonase, Nasacort, OR Nasonex. They work best if used consistently. In addition to one of these medicated nasal sprays use saline nasal spray to avoid dryness and thinout mucous Over the Counter (OTC) antihistamine (claritin, zyrtec, xyzal or drew) can also be helpful for sinus symptoms. You can use mucinex if needed Continue supportive measures: Increase clear, non-sugary fluid intake. Get plenty of rest Use a cool mist vaporizer or humidifier daily and you can take hot showers for steam therapy. Do warm salt water gargles and/or chloraseptic throat spray, throat lozenges (Cepacol) for any sorethroat. Honey, if not concerned about diabetes or elevated blood sugar levels, can also be very helpful forsorethroat. You may also use ibuprofen or acetaminophen OTC for relief of pain or fevers. If you had a negative rapid strep test, we will inform you if your PCR ("the send out") comes back positive, and start you on antibiotics. Otherwise, you may assume the PCR was also negative. If you had a viral swab (e.g. COVID, Flu, RSV, or otherwise), we will notify you if you test positive. If you do not hear from us, assume your test was negative. Follow up with PCP or return if no improvement in a week, or sooner if worse. Go to the ED if any severe symptoms appear acutely documented in this encounter Progress Notes * Christian Del Rio PA-C - 10/14/2023 4:10 PM EST Nursing Notes: Qi Martinez LPN 10/14/23 1540 Signed Gretchen Mosquera is a 38 year old female who presents to walk-in clinic today complaining of cold symptoms for about 10 days. Having congestion, productive cough, post nasal drip and fever. Fever responded to tylenol. She is 28 weeks . Pt alone in room. Gretchen Mosquera is a 38 year old female who is 28 weeks who presents with upper respiratory symptoms for 10 day(s) Patient was accompanied by Self. HPI Severity of Symptoms: Moderate Modifying Factors (what was done since onset of symptoms): tylenol Timing (how often does it occur): constant, no improvement Quality (feels like): sinus pressure, nc, rhinorrhea, pnd, mild cough (sometimes productive). She had a fever in beginning. Mild ST. Reports malaise, Denies sob, wheezing, cp, palp. She also notes a sore in her nose x the last 5-7 days that is worsening. Her nose R>L nostril isedematous, red, painful, feels like there may be an abscess. No drainage. 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 Stuart - Social History Tobacco Use Smoking status: Never Smokeless tobacco: Never Tobacco comments: No passive smoke exposures Substance Use Topics Alcohol use: Not Currently Vaping/E-Cigarette Use Vaping/E-Cigarette Use Never User Vaping/E-Cigarette Substances Vaping/E-Cigarette Devices Current Outpatient Medications Medication Sig Dispense Refill Vit-Fe Fumarate-FA ( VITAMIN) 27-0.8 MG TABS Take by mouth. Vitamin D (Cholecalciferol) 25 MCG (1000 UT) Oral Capsule Take by mouth . Lactaid Fast Act 9000 UNIT Oral Tablet (Lactase) Take by mouth. Aspirin 81 MG Oral Tablet Delayed Release Take 1 Tablet by mouth in the morning. Mupirocin 2 % External Ointment (Bactroban) Apply topically to affected area 3 times a day for 14 days. To affected area for up to 14 days. 22 g 1 Cephalexin 500 MG Oral Capsule Take 1 Capsule by mouth in the morning and 1 Capsule at noon and 1 Capsule before bedtime. Do all this for 10 days. 30 Capsule 0 No current facility-administered medications for this visit. Review of patient's allergies indicates: Allergen Reactions Amoxicillin Rash Pollen Family History Problem Relation Age of Onset Mental Disorder Mother depression anxiety Migraines Mother Mental Disorder Father bipolor depression anxiety Gastro-intestinal disorder Father kidney stones Allergies Father Allergic rhinitis Allergies Brother Nasal allergies No Past Hx Brother Allergies Grandmother (Maternal) Nasal allergies Migraines Grandmother (Maternal) OBJECTIVE BP 138/86 | Pulse 118 | Temp 36.6 C (97.9 F) | Resp 16 | Wt 83.6 kg (184 lb 5.4 oz) | LMP 03/28/2023 (Exact Date) Comment: 03/28 - 03/31 was LMP | SpO2 97% | BMI 32.65 kg/m | BSA 1.93 m Wt Readings from Last 1 Encounters: 10/14/23 83.6 kg (184 lb 5.4 oz) General Appearance: awake, alert, no apparent distress HEENT: perrl and eomi tms - clear, normal light reflex, no erythema + red and irritated pharynx + conjunctival injection + turbinate engorgement and discharge +erythema, edema, tenderness, eschar, with questionable purulence in R nares Neck: normal, supple, no adenopathy Respiratory: clear to auscultation, no rhonchi, no wheezes, and no crackles Heart: regular rhythm, no murmurs , no rubs, no gallops, and +tachycardia Skin: skin color, texture, turgor are normal, no rashes or significant lesions Patient Instructions Mupirocin 2-3x a day for two weeks in nose Keflex every 8 hours for 10 days. Start a daily nasal spray such as Flonase, Nasacort, OR Nasonex. They work best if used consistently. In addition to one of these medicated nasal sprays use saline nasal spray to avoid dryness and thinout mucous Over the Counter (OTC) antihistamine (claritin, zyrtec, xyzal or drew) can also be helpful for sinus symptoms. You can use mucinex if needed Continue supportive measures: Increase clear, non-sugary fluid intake. Get plenty of rest Use a cool mist vaporizer or humidifier daily and you can take hot showers for steam therapy. Do warm salt water gargles and/or chloraseptic throat spray, throat lozenges (Cepacol) for any sorethroat. Honey, if not concerned about diabetes or elevated blood sugar levels, can also be very helpful forsorethroat. You may also use ibuprofen or acetaminophen OTC for relief of pain or fevers. If you had a negative rapid strep test, we will inform you if your PCR ("the send out") comes back positive, and start you on antibiotics. Otherwise, you may assume the PCR was also negative. If you had a viral swab (e.g. COVID, Flu, RSV, or otherwise), we will notify you if you test positive. If you do not hear from us, assume your test was negative. Follow up with PCP or return if no improvement in a week, or sooner if worse. Go to the ED if any severe symptoms appear acutely ASSESSMENT AND PLAN Acute sinusitis, recurrence not specified, unspecified location (Primary) - Mupirocin 2 % External Ointment (Bactroban); Apply topically to affected area 3 times a day for 14 days. To affected area for up to 14 days. - Cephalexin 500 MG Oral Capsule; Take 1 Capsule by mouth in the morning and 1 Capsule at noon and 1 Capsule before bedtime. Do all this for 10 days. Skin infection - Mupirocin 2 % External Ointment (Bactroban); Apply topically to affected area 3 times a day for 14 days. To affected area for up to 14 days. - Cephalexin 500 MG Oral Capsule; Take 1 Capsule by mouth in the morning and 1 Capsule at noon and 1 Capsule before bedtime. Do all this for 10 days. Follow-up: Return if symptoms worsen or fail to improve. | Check-out note: If symtoms worsen or fail to improve Patient goals for plan of care were discussed Christian Del Rio PA-C [place] [id number] documented in this encounter Nursing Notes * Qi Martinez LPN - 10/14/2023 3:36 PM EST Gretchen Mosquera is a 38 year old female who presents to walk-in clinic today complaining of cold symptoms for about 10 days. Having congestion, productive cough, post nasal drip and fever. Fever responded to tylenol. She is 28 weeks . Pt alone in room. documented in this encounter Plan of Treatment Upcoming Encounters Date Type Department Care Team (Late st Contact Info) Description 10/18/2023 8:00 AM EST Office Visit Tool Machinist Obstetrics Maternal Medicine, [place] [address] [place] [address] Richy Person, [address] [place] [address] 10/18/2023 8:00 AM EST [facility], [place] [address] [place] [address] 10/24/2023 11:45 AM EST Imaging Maternal Medicine Imaging, [place] Vas[place] [address] [facility] [place] [phone] 10/25/2023 11:15 AM EST Office Visit Gynecology/Obstetrics Nara Vasques [address] [facility] [place] [address] Karol Beavers CRNP [address] [facility] [place] [address] 11/21/2023 9:30 AM EDT Imaging Maternal Medicine Imaging, Alma Vasques [address] [facility] [place] [address] 12/19/2023 9:30 AM EDT Office Visit Tool Machinist Obstetrics Maternal Medicine, [place] [address] [facility] [place] [address] Nelda Avina, [address] [place] [address] 12/19/2023 9:30 AM EDT Imaging Maternal Medicine Imaging, [place] Vas[place] [address] [facility] [place] [address] 03/18/2024 11:30 AM EDT Office Visit [place] [address] [place] [address] Lelia Mendoza, [place] [address] Health Maintenance Due Date Last Done Comments [...] as of this encounter Visit Diagnoses Diagnosis Acute sinusitis, recurrence not specified, unspecified location- Primary Skin infection Unspecified local infection of skin and subcutaneous tissue documented in this encounter Care Teams Car Supplier Relationship Specialty Start Date End Date Lelia Mendoza DO [address] [place] [facility] [place] [address] PCP - General Family Medicine 10/14/23 documented as of this encounter
--- OUTSIDE RECORDS SUMMARY | 2023-12-27 09:00 | External Medical Summary | Summary of Care ---
Author Name Unknown Organization [facility] Address [address] [place] [address] Phone [phone] Care Team Providers Care Roller Printer Name Role Phone Joseline Brian MD Primary Care Provider + Reason for Visit * Reason Comments Outpatient Testing Encounter Details Date Type Department Care Team (Late st Contact Info) Description 10/11/2023 9:30 AM EST Laboratory Laboratory, [facility] [place] [phone] [facility] [address] [place] [address] High-risk in second trimester Allergies Active Allergy Reactions Criticality Noted Date [...] at delivery NIPT: low risk / boy [facility] anatomy scan scheduled 08/19/2023 Last Assessment [...] assessment of proteinuria (24-hour urine protein or abjgisy-je-mmzehgaudr ratio) and CBC, serum AST/ALT/creatinine. If patient [...] period of 03/28/2023 (Exact Date), 03/28 - 07/30 was LMP documented as of this encounter [...] mRNA, LNP-s, No Pre serve, 2-Dose Series ([employer]) 10/01/2020,09/10/2020 DTWP - Dipth/Tet/Whole Cell Pertussis 04/02/2005 [...] have money to get more. Patient refused [place] Depression Scale Answer Date Recorded [place] Depression Scale Total 8 09/26/2023 The thought [...] Description 10/18/2023 8:00 AM EST Office Visit Thermal Cutting Machine Operator Obstetrics Maternal Medicine, [place] [address] [place] [address] Richy Person, [place] [address] 10/18/2023 8:00 AM EST Imaging [facility], [place] [address] [place] [address] 10/24/2023 11:45 AM EST Imaging Maternal Medicine Imaging, Alma Snyders [address] [place] [address] 10/25/2023 11:15 AM EST Office Visit Gynecology/Obstetrics [place] [address] [facility] [place] [address] aKrol Beavers CRNP [address] [place] [address] 11/21/2023 9:30 AM EDT Imaging Maternal Medicine Imaging, Alma Snyders [address] [place] [address] 12/19/2023 9:30 AM EDT Office Visit Thermal Cutting Machine Operator Obstetrics Maternal Medicine, [place] [address] [facility] [place] [address] Nelda Avina, [address] [place] [address] 12/19/2023 9:30 AM EDT Imaging Maternal Medicine Imaging, [facility] [address] [facility] [place] [phone] Pending Results Name Type Priority Associated Diagnoses Date /Time 50-G GESTATIONAL GLUCOSE, 1 HOUR Lab Routine High-risk in second trimester 10/11/2023 10:29 AM EST CBC WITH WBC DIFFERENTIAL AND ANEMIA REFLEX WORKUP Lab Routine High-risk in second trimester 10/11/2023 10:29 AM EST SYPHILIS ANTIBODY SCREEN WITH REFLEX TO RPR Lab Routine High-risk in second trimester 10/11/2023 10:29 AM EST ANEMIA CBC Lab Routine High-risk in second trimester 10/11/2023 10:29 AM EST DIFFERENTIAL, AUTOMATED Lab Routine High-risk in second trimester 10/11/2023 10:29 AM EST ANEMIA REFLEX CHEMISTRY HOLD Lab Routine High-risk in second trimester 10/11/2023 10:29 AM EST SYPHILIS ANTIBODY SCREEN Lab Routine High-risk in second trimester 10/11/2023 10:29 AM EST Health Maintenance Due Date Last [...] this encounter Visit Diagnoses Diagnosis High-risk in second trimester documented in this encounter Care Teams Roller Printer Relationship Specialty Start Date End Date Joseline Brian MD [address] [facility] [place] [address] PCP - General Internal Medicine 10/07/23 documented as of this encounter
--- OUTSIDE RECORDS SUMMARY | 2023-12-27 09:00 | External Medical Summary | Summary of Care ---
Author Name Unknown Organization [facility] Address [address] [place] [address] Phone [phone] Care Team Providers Care Lap Runner Name Role Phone Joseline Brian MD Primary Care Provider + Reason for Visit * Reason Comments Return Visit Encounter Details Date Type Department Care Team (Late st Contact Info) Description 10/11/2023 9:45 AM EST Office Visit Gynecology/Obstetric s Nara Vasques [address] [place] [address] Karol Beavers CRNP [address] [place] [address] Primigravida of advanced maternal age in third [...] assessment of proteinuria (24-hour urine protein or gbcoitp-wu-gvmxgmxnhq ratio) and CBC, serum AST/ALT/creatinine. If patient [...] mRNA, LNP-s, No Pre serve, 2-Dose Series ([employer]) 10/01/2020,09/10/2020 DTWP - Dipth/Tet/Whole Cell Pertussis [...] have money to get more. Patient refused [place] Depression Scale Answer Date Recorded [place] Depression Scale Total 8 09/26/2023 The thought [...] Description 10/18/2023 8:00 AM EST Office Visit Experimental Mechanic Electrical Obstetrics Maternal Medicine, [place] [address] [place] [address] Richy Person, [address] [place] [address] 10/18/2023 8:00 AM EST [facility], [place] [address] [place] [address] 10/24/2023 11:45 AM EST Imaging Maternal Medicine Imaging, Alma Snyders [address] [place] [phone] 11/21/2023 9:30 AM EDT Imaging Maternal Medicine Imaging, Alma Snyders [address] [place] [address] 12/19/2023 9:30 AM EDT Office Visit Experimental Mechanic Electrical Obstetrics Maternal Medicine, [place] Sny[place] [address] [place] [address] Nelda Avina, [address] [place] [address] 12/19/2023 9:30 AM EDT Imaging Maternal Medicine Imaging, Alma Snyders [address] [place] [phone] Pending Results Name Type Priority Associated Diagnoses [...] fetus documented in this encounter Care Teams Lap Runner Relationship Specialty Start Date End Date Joseline Brian MD [address] [place] [address] PCP - General Internal Medicine 10/07/23 documented as of this encounter
--- OUTSIDE RECORDS SUMMARY | 2023-12-27 09:01 | External Medical Summary | Summary of Care ---
Author Name Unknown Organization [facility] Address [address] [place] [address] Phone [phone] Care Team Providers Care Security Solutions Architect Name Role Phone Joseline Brian MD Primary Care Provider + Encounter Details Date Type Department Care Team (Late st Contact Info) Description 08/29/2023 Telephone Gynecology/Obstetrics [facility] [address] [place] [address] BackPriscilla quinn CRNP [address] [facility] [place] [address] Allergies Active Allergy Reactions Criticality Noted Date Comments Amoxicillin Rash 10/16/2016 Pollen 05/08/2023 documented as of this encounter (statuses as of 08/29/2023) Medications Medication Sig Dispensed Refills Start Date [...] as of this encounter (statuses as of 08/29/2023) Active Problems Problem Noted Date Diagnosed Date [...] assessment of proteinuria (24-hour urine protein or zwerqsp-uy-csqjaehxnf ratio) and CBC, serum AST/ALT/creatinine. If patient [...] 120/60 07/13/21 122/74 Last Assessment & Plan: There is suspicion for mild chronic hypertension secondary to the observation of several mild BP elevations in early . She monitors her BP's at home and reports that most are normal but have ranged from 125/80's to 132/98. We discussed treatment if she has persistent values > 140/90. Elderly primigravida 05/08/2023 Chronic intractable headache 02/05/2022 Allergic rhinitis 02/05/2022 Recurrent major depressive disorder, in partial remission 12/05/2021 Estimated Date of Delivery Comme nts Yes 01/02/2024 Based on last me nstrual period of 03/28/2023 (Exact Date), 03/28 - 03/31 was LMP documented as of this encounter (statuses as of 08/29/2023) Resolved Problems Problem Noted Date Diagnosed Date Resolved Date Supervision of high risk pre gnancy in second trimester 08/09/2023 08/28/2023 with 19 completed weeks gestation 08/09/2023 08/19/2023 Elevated blood pressure affe cting in second trimester, antepartum 07/04/2023 08/02/20 Overview: Elevated BP at 14w Positive test 05/08/202307/05 documented as of this encounter (statuses as of 08/29/2023) Immunizations Name Administration Dates Next Due COVID-19 [...] have money to get more. Patient refused Estimated Date of Delivery Comme nts Yes [...] Care Team (Late st Contact Info) Description 09/11/2023 11:30 AM EST Office Visit Administrative Tech Obstetrics Maternal Medicine, [place] [address] [place] [address] Mor Oswald MD [address] [place] [address] 09/11/2023 11:30 AM EST Imaging [facility], [place] [address] [place] [address] 09/26/2023 10:20 AM EST Laboratory Laboratory, [facility] [address] [facility] [place] [phone] [facility] [address] [facility] [place] [address] 09/26/2023 10:30 AM EST Office Visit Gynecology/Obstetrics [facility] [address] [facility] [place] [address] Karol Beavers CRNP [address] [facility] [place] [address] 10/03/2023 11:00 AM EST Office Visit Administrative Tech Obstetrics Maternal Medicine, [facility] [address] [facility] [place] [address] Nelda Avina, DO [address] [place] [address] 10/03/2023 11:00 AM EST Imaging Maternal Medicine Imaging, Alma Vasques [address] [place] [phone] 10/24/2023 11:45 AM EST Imaging Maternal Medicine Imaging, Alma Vasques [address] [place] [phone] Pending Results Name Type Priority Associated Diagnoses Date /Time CULTURE, URINE, QUANTITATIVE Lab Routine Leukocytes in urine 08/29/2023 11:28 AM EST Scheduled Orders Name Type Priority Associated Diagnoses Orde r Schedule CULTURE, URINE, QUANTITATIVE Lab Routine Leukocytes in urine Expected: 08/29/2023, Expires: 08/29/2024 Health Maintenance Due Date Last Done Comments [...] as of this encounter Visit Diagnoses Diagnosis Leukocytes in urine- Primary Other cells and casts in urine documented in this encounter Care Teams Security Solutions Architect Relationship Specialty Start Date End Date Joseline Brian MD [address] [place] [address] PCP - General Internal Medicine 07/27/16 documented as of this encounter
--- OUTSIDE RECORDS SUMMARY | 2023-12-27 09:01 | External Medical Summary | Summary of Care ---
Author Name Unknown Organization [facility] Address [address] [place] [address] Phone [phone] Care Team Providers Care Retail General Manager Name Role Phone Joseline Brian MD Primary Care Provider + Reason for Visit * Reason Onset Date Comments Advice 10/07/2023 Encounter Details Date Type Department Care Team (Late st Contact Info) Description 10/07/2023 Telephone Gynecology/Obstetrics [facility] [address] [place] [address] Kehinde Pittman MD [address] [place] [address] Advice Allergies Active Allergy Reactions Criticality Noted Date Comments Amoxicillin Rash 10/16/2016 Pollen 05/08/2023 documented as of this encounter (statuses as of 10/07/2023) Medications Medication Sig Dispensed Refills Start Date [...] as of this encounter (statuses as of 10/07/2023) Active Problems Problem Noted Date Diagnosed Date [...] at delivery NIPT: low risk / boy [facility] anatomy scan scheduled 08/19/2023 Last Assessment [...] assessment of proteinuria (24-hour urine protein or nrbqhdp-ew-apoxiujvrd ratio) and CBC, serum AST/ALT/creatinine. If patient [...] as of this encounter (statuses as of 10/07/2023) Resolved Problems Problem Noted Date Diagnosed Date Resolved Date Supervision of high risk pre gnancy in second trimester 08/09/2023 08/28/2023 with 19 completed weeks gestation 08/09/2023 08/19/2023 Elevated blood pressure affe cting in second trimester, antepartum 07/04/2023 08/02/20 Overview: Elevated BP at 14w Positive test 05/08/202307/05 documented as of this encounter (statuses as of 10/07/2023) Immunizations Name Administration Dates Next Due COVID-19 [...] have money to get more. Patient refused Waterbury Depression Scale Answer Date Recorded [place] Depression Scale Total 8 09/26/2023 The thought [...] Telephone Encounter - Kathia Adair RN - 10/07/2023 12:23 PM EST Spoke with pt. Her temp was 99.8 about an hour ago. Advised to see pcp. Pt aware and agreeable. * Telephone Encounter - Kathia Adair RN - 10/07/2023 11:[address] Pittman, pt should follow up with pcp if still experiencing fevers. * Telephone Encounter - Roxanne Corona LPN - 10/07/2023 9:25 AM EST Pt states she called into the liquor commissioner provider regarding an elevated temp since Saturday. States ranging from 99.8-100.8. Pt reports having a cough and sore throat. Did covid test and was negative on Sat PM. Advised pt to retest today. Pt denies V/D. States Temp with morning upon waking was 100.0. Has not taken any Tylenol as of yet, but intends to. Has been taking Tylenol ES every 8 hrs. Pt was asking if the note from the liquor commissioner provider was documented in her chart. I do not see a T/E. Pt states she had a hard time understanding the provider. I informed pt to continue monitoring and taking Tylenol as needed for fevers as well. Please review with liquor commissioner provider and f/u. Thanks. documented in this encounter Plan of Treatment Upcoming Encounters Date Type Department Care Team (Late st Contact Info) Description 10/10/2023 2:30 PM EST Office Visit Film Technician Obstetrics Maternal Medicine, [place] [address] [place] [address] Nelda Avina, [address] [place] [address] 10/10/2023 2:30 PM EST Imaging Maternal Medicine Imaging, [facility] [address] [facility] [place] [phone] 10/11/2023 9:30 AM EST Laboratory Laboratory, [address] [phone] [address] [address] 10/11/2023 9:45 AM EST Office Visit Gynecology/Obstetrics [facility] [address] Karol Beavers CRNP [facility] [address] 10/18/2023 8:00 AM EST Office Visit Film Technician Obstetrics Maternal Medicine, [place] [address] [place] [address] Richy Person, [address] [place] [address] 10/18/2023 8:00 AM EST Imaging [facility] [place] [address] [place] [address] 10/24/2023 11:45 AM EST Imaging Maternal Medicine Imaging, [place] [facility] [address] [facility] [place] [phone] 11/21/2023 9:30 AM EDT Imaging Maternal Medicine Imaging, [place] Sny[place] [address] [place] [phone] 12/19/2023 9:30 AM EDT Office Visit Film Technician Obstetrics Maternal Medicine, [place] [address] [place] [address] Fabrice Neldamichael Stauffer, DO [address] [place] [address] 12/19/2023 9:30 AM EDT Imaging Maternal Medicine Imaging, [place] [facility] [place] [phone] Health Maintenance Due Date Last Done Comments [...] filedocumented as of this encounter Care Teams Retail General Manager Relationship Specialty Start Date End Date Joseline Brian MD [address] [place] [address] PCP - General Internal Medicine 07/27/16 documented as of this encounter
--- OUTSIDE RECORDS SUMMARY | 2023-12-27 09:01 | External Medical Summary ---
Author Name Unknown Address Unknown Organization [id number]:LABORATORY [facility] [place] - [address] [place] [address] Laboratory Report Ordering Provider Test Date Status JUNIOR WILLIAMSON 10/11/2023 10:23:21 Final Observation Date Value Abnormality Reference (Units) Status Bacteria identified in Specimen by Culture 10/11/2023 10:23:21 No significant growth Final Test: Culture, Urine, Quant itative
Specimen Source: Urine, Clean Catch
Specimen Type: Urine
Specimen Date: 10/11/2023 10:23 AM
Result Date: 10/12/2023 12:34 PM
Result Status: Final result
Resulting Lab: [facility] [place]
[address]
[place] [address]

CULTURE

No significant growth

null Performing Location LAB[facility]ATORY [facility] [place] - [address] [place] [id number]
--- OUTSIDE RECORDS SUMMARY | 2023-12-27 09:01 | External Medical Summary ---
Author Name Unknown Address Unknown Organization K01:[facility] [place] [facility] [place] [address] [place] [address] Laboratory Report Ordering Provider Test Date Status TERIJUNIOR 10/11/2023 10:23:21 Final Normal: <150 mg/ g creatinine
High: 150-500 mg/g creatinine
Very High: >500 mg/g creatinine
Nephrotic: >3000 mg/g creatinine Observation Date Value Abnormality Reference (Units ) Status Protein/Creatinine [Ratio] in Urine 10/11/2023 10:23:21 143 <150 (mg/g ) Final Protein, Urine 10/11/2023 10:23:21 12 (mg/dL) Final Creatinine, Urine 10/11/2023 10:23:21 84 (mg/dL) Final Performing Location [facility] [place] [facility] [place] [address] [place] [address]
--- OUTSIDE RECORDS SUMMARY | 2023-12-27 09:01 | External Medical Summary | Summary of Care ---
Author Name Unknown Organization [facility] Address [address] [place] [address] Phone [phone] Care Team Providers Care Oil Well Service Operator Name Role Phone Joseline Brian MD Primary Care Provider + Reason for Visit * Reason Comments Ultrasound Encounter Details Date Type Department Care Team (Late st Contact Info) Description 09/11/2023 11:30 AM EST Office Visit It Sales Consultant Obstetrics Maternal Medicine, [place] [address] [place], [place] [phone] Mor Oswald MD [address] [place], [place] [phone] Chronic hypertension in *; Antepartum multigravida of advanced maternal age; Encounter for supervision of other normal , second trimester Allergies Active Allergy Reactions Criticality Noted Date Comments Amoxicillin Rash 10/16/2016 Pollen 05/08/2023 documented as of this encounter (statuses as of 09/11/2023) Medications Medication Sig Dispensed Refills Start Date [...] as of this encounter (statuses as of 09/11/2023) Active Problems Problem Noted Date Diagnosed Date [...] assessment of proteinuria (24-hour urine protein or evmaeeh-qv-uabzkvxlkn ratio) and CBC, serum AST/ALT/creatinine. If patient [...] 120/60 07/13/21 122/74 Last Assessment & Plan: I reviewed the ultrasound with her. The anatomy that was visualized appears unremarkable and the overall estimated weight is consistent with the 10th percentile for the gestational age. The amniotic fluid volume is subjectively normal. Since the last ultrasound 3 weeks ago, there has been adequate interval growth with respect to the head circumference and the abdominal circumference. We will bring back in 3 weeks for an evaluation of growth due to the estimated weight being consistent with the 10th percentile for the gestational age. Elderly primigravida 05/08/2023 Chronic intractable headache 02/05/2022 Allergic rhinitis 02/05/2022 Recurrent major depressive disorder, in partial remission 12/05/2021 Estimated Date of Delivery Comme nts Yes 01/02/2024 Based on last me nstrual period of 03/28/2023 (Exact Date), 03/28 - 03/31 was LMP documented as of this encounter (statuses as of 09/11/2023) Resolved Problems Problem Noted Date Diagnosed Date Resolved Date Supervision of high risk pre gnancy in second trimester 08/09/2023 08/28/2023 with 19 completed weeks gestation 08/09/2023 08/19/2023 Elevated blood pressure affe cting in second trimester, antepartum 07/04/2023 08/02/20 23 Overview: Elevated BP at 14w Positive test 05/08/202307/05 documented as of this encounter (statuses as of 09/11/2023) Immunizations Name Administration Dates Next Due COVID-19 mRNA, LNP-s, No Pre serve, 2-Dose Series ([employer]) 10/01/2020,09/10/2020 DTWP - Dipth/Tet/Whole Cell Pertussis 04/02/2005 [...] Sign Reading Time Taken Comments Blood Pressure 150/68 09/11/2023 11:29 AM EST Pulse - - Temperature - - Respiratory Rate - - Oxygen Saturation - - Inhaled Oxygen Concentration - - Weight - - Height - - Body Mass Index - - documented in this encounter Progress Notes * Mor Oswald MD - 09/11/2023 10:53 AM EST MATERNAL MEDICINE VISIT Gretchen Mosquera is at 23w6d who presents to [facility] for an ultrasound and follow-up of her high risk . The patient is currently 23 weeks and 6 days gestation with chronic hypertension on no medications and advanced maternal age. She comes in for an evaluation of growth. She is being seen today by Maternal- Medicine for the following reasons: Problem List Items Addressed This Visit Chronic hypertension in - Primary I reviewed the ultrasound with her. The anatomy that was visualized appears unremarkable and the overall estimated weight is consistent with the 10th percentile for the gestational age. The amniotic fluid volume is subjectively normal. Since the last ultrasound 3 weeks ago, there has been adequate interval growth with respect to the head circumference and the abdominal circumference. We will bring back in 3 weeks for an evaluation of growth due to the estimated weight being consistent with the 10th percentile for the gestational age. Relevant Orders M US PREG FOLLOW UP EACH FETUS Antepartum multigravida of advanced maternal age Relevant Orders MFM US PREG FOLLOW UP EACH FETUS Other Visit Diagnoses Encounter for supervision of other normal , second trimester Relevant Orders MFM US PREG FOLLOW UP EACH FETUS We reviewed today's ultrasound findings. (For full report, please refer to ultrasound report provided separately). Ms. Mosquera's questions were answered to her satisfaction. Thank you for allowing us to participate in the care of this patient. Please call with any questions. I spent 15 minutes with Ms. Mosquera of which greater than 50% was spent in face to face consultation and coordination of care for the above. Mor Oswald MD 09/11/2023 10:53 AM documented in this encounter Miscellaneous Notes * Assessment & Plan Note - Mor Oswald MD - 09/11/2023 12:27 PM EST Associated Problem(s): Chronic hypertension in I reviewed the ultrasound with her. The anatomy that was visualized appears unremarkable and the overall estimated weight is consistent with the 10th percentile for the gestational age. The amniotic fluid volume is subjectively normal. Since the last ultrasound 3 weeks ago, there has been adequate interval growth with respect to the head circumference and the abdominal circumference. We will bring back in 3 weeks for an evaluation of growth due to the estimated weight being consistent with the 10th percentile for the gestational age. documented in this encounter Plan of Treatment Upcoming Encounters Date Type Department Care Team (Late st Contact Info) Description 09/26/2023 10:20 AM EST [facility] [address] [place] [phone] Jim Vasques [address] [place] [address] 09/26/2023 10:30 AM EST Office Visit Gynecology/Obstetrics [place] [address] Karol Beavers CRNP [address] [place] [address] 10/03/2023 11:00 AM EST Office Visit It Sales Consultant Obstetrics Maternal Medicine, [place] [address] [place] [address] Fabrice Neldamichael Stauffer, DO [address] [place] [address] 10/03/2023 11:00 AM EST Imaging Maternal Medicine Imaging, [place] [facility] [facility] [place] [phone] 10/24/2023 11:45 AM EST Imaging Maternal Medicine Imaging, [place] [address] [place] [phone] Scheduled Orders Name Type Priority Associated Diagnoses Orde r Schedule MFM US PREG FOLLOW UP EACH FETUS Medical Imaging Routine Chronic hypertension in Antepartum multigravida of advanced maternal age Encounter for supervision of other normal , second trimester 3 Occurrences starting 09/11/2023 until 03/11/2024 Health Maintenance Due Date Last Done Comments [...] care Antepartum multigravida of advanced maternal age Encounter for supervision of other normal , second trimester documented in this encounter Care Teams Oil Well Service Operator Relationship Specialty Start Date End Date Joseline Brian MD [address] [facility] [place] [address] PCP - General Internal Medicine 07/27/16 documented as of this encounter
--- OUTSIDE RECORDS SUMMARY | 2023-12-27 09:01 | External Medical Summary | Summary of Care ---
Author Name Unknown Organization [facility] Address [address] [place] [address] Phone [phone] Care Team Providers Care Registered Nurse Behavioral Health Name Role Phone Joseline Brian MD Primary Care Provider + Encounter Details Date Type Department Care Team (Late st Contact Info) Description 10/03/2023 11:00 AM EST Office Visit Contract Serviceman Obstetrics Maternal Medicine, [address] [address] Nelda Avina, DO [address] [place] [address] Poor growth affecting management of mother, antepartum, single or unspecified fetus*; Antepartum multigravida of advanced maternal age; Chronic hypertension in Allergies Active Allergy Reactions Criticality Noted Date Comments Amoxicillin Rash 10/16/2016 Pollen 05/08/2023 documented as of this encounter (statuses as of 10/04/2023) Medications Medication Sig Dispensed Refills Start Date [...] as of this encounter (statuses as of 10/04/2023) Active Problems Problem Noted Date Diagnosed Date [...] assessment of proteinuria (24-hour urine protein or inagqob-em-wnfxnunzsb ratio) and CBC, serum AST/ALT/creatinine. If patient [...] as of this encounter (statuses as of 10/04/2023) Resolved Problems Problem Noted Date Diagnosed Date Resolved Date Supervision of high risk pre gnancy in second trimester 08/09/2023 08/28/2023 with 19 completed weeks gestation 08/09/2023 08/19/2023 Elevated blood pressure affe cting in second trimester, antepartum 07/04/2023 08/02/20 Overview: Elevated BP at 14w Positive test 05/08/202307/05 documented as of this encounter (statuses as of 10/04/2023) Immunizations Name Administration Dates Next Due COVID-19 mRNA, LNP-s, No Pre serve, 2-Dose Series ([employer]) 10/01/2020,09/10/2020 DTWP - Dipth/Tet/Whole Cell Pertussis 04/02/2005 [...] have money to get more. Patient refused Haugen Depression Scale Answer Date Recorded Haugen Depression Scale Total 8 09/26/2023 The thought [...] this encounter Progress Notes * Nelda Avina Peyton, DO - 10/04/2023 9:14 AM EST MATERNAL MEDICINE VISIT Patient location: CLINIC. I was not in a hospital or clinic location. After connecting through [employer], patient was verified with two unique identifiers. Patient (or authorized legal associate financial representative) was then informed that this was a Telemedicine visit and being conducted confidentially over secure lines. My office door was closed. No one else was in the room with me. Patient acknowledged consent and understanding of privacy and security of the Telemedicine visit, and gave permission to have atelemedicine presenter stay in the room in order to assist with the history and to conduct the examas needed. I informed the patient that I have reviewed their record in [facility] and presented the opportunity for them to ask any questions regarding the visit today. The patient agreed to participate. Gretchen Mosquera presented today at 27w1d for an ultrasound and follow-up of her high risk . She was seen for the following indications: Problem List Items Addressed This Visit Circulatory Chronic hypertension in BP Readings from Last 10 Encounters: 09/26/23 136/78 09/11/23 150/68 08/29/23 120/82 08/19/23 139/67 08/01/23 136/80 07/08/23 140/80 07/04/23 140/90 06/06/23 112/78 05/08/23 116/70 07/31/22 112/68 Majority < 140/90; would add labetalol or nifedipine if needed to maintain. Other Antepartum multigravida of advanced maternal age Poor growth affecting management of mother, antepartum - Primary EFW today has dropped from 10%ile to 8%ile. While this is not a large change, it is now classified as growth restriction. Normal CHASE with normal UA Doppler as well as BPP 8/8. Low risk NIPT appreciated. CONSIDERATIONS: We discussed [...] Delivery at 39 weeks pending ongoing assessment. We reviewed today's ultrasound findings. Patient presented at 27w 0d for growth assessment. Small AC noted at 17% with overall EFW of 862 g at 8%. CHASE 20.8 cm. Umbilical artery Doppler normal. Breech presentation. BPP 8/8. (For full details, please refer to ultrasound report provided separately). Ms. Kidd questions were answered to her satisfaction. She was advised to contact our office or her OB provider for any additional questions regarding her . RECOMMENDATIONS: Recommend follow up ultrasound with MFM in 1 weeks for BPP/Doppler secondary to above indications. Thank you for allowing us to participate in the care of this patient. Please call with any questions. Nelda Avina DO 10/04/2023 9:15 AM documented in this encounter Miscellaneous Notes * Assessment & Plan Note - Nelda Avina DO - 10/04/2023 9:14 AM EST Associated Problem(s): Chronic hypertension in BP Readings from Last 10 Encounters: 09/26/23 136/78 09/11/23 150/68 08/29/23 120/82 08/19/23 139/67 08/01/23 136/80 07/08/23 140/80 07/04/23 140/90 06/06/23 112/78 05/08/23 116/70 07/31/22 112/68 Majority < 140/90; would add labetalol or nifedipine if needed to maintain. * Assessment & Plan Note - Nelda Avina DO - 10/04/2023 9:12 AM EST Associated Problem(s): Poor growth affecting management of mother, antepartum EFW today has dropped from 10%ile to [...] Delivery at 39 weeks pending ongoing assessment. documented in this encounter Plan of Treatment Upcoming Encounters Date Type Department Care Team (Late st Contact Info) Description 10/10/2023 2:30 PM EST Office Visit Contract Serviceman Obstetrics Maternal Medicine, [address] [place] [address] Nelda Avina DO [address] [place] [address] 10/10/2023 2:30 PM EST Imaging Maternal Medicine [facility] [phone] 10/11/2023 9:30 AM EST Laboratory Laboratory, [address] [phone] [place] [address] 10/11/2023 9:45 AM EST Office Visit Gynecology/Obstetrics [facility] [address] Karol Beavers CRNP 132 [place] [address] 10/18/2023 8:00 AM EST Office Visit Contract Serviceman Obstetrics Maternal Medicine, [place] [address] [place] [address] Richy Person, [address] [place] [address] 10/18/2023 8:00 AM EST Imaging [facility] [place] [address] [place] [address] 10/24/2023 11:45 AM EST Imaging Maternal Medicine Imaging, [place] [phone] 11/21/2023 9:30 AM EDT Imaging Maternal Medicine Imaging, [place] [phone] 12/19/2023 9:30 AM EDT Office Visit Contract Serviceman Obstetrics Maternal Medicine, [place] [address] Nelda Avina, DO [address] [place] [address] 12/19/2023 9:30 AM EDT Imaging Maternal Medicine Imaging, [place] [phone] Scheduled Orders Name Type Priority Associated Diagnoses Orde r Schedule MFM US BIOPHYSICAL WO NON STRESS Medical Imaging Routine Poor growth affecting management of mother, antepartum, single or unspecified fetus Antepartum multigravida of advanced maternal age Chronic hypertension in 12 Occurrences starting 10/04/2023 until 04/02/2024 MFM US UMBIL ART DOPP VELOC Medical Imaging Routine Poor growth affecting management of mother, antepartum, single or unspecified fetus Antepartum multigravida of advanced maternal age Chronic hypertension in 12 Occurrences starting 10/04/2023 until 04/02/2024 Health Maintenance Due Date Last Done Comments [...] mother, antepartum, single or unspecified fetus- Primary Antepartum multigravida of advanced maternal age Chronic hypertension in Benign essential hypertension complicating , childbirth, and the puerperium, unspecified as to episode of care documented in this encounter Care Teams Registered Nurse Behavioral Health Relationship Specialty Start Date End Date Joseline Brian MD [address] [place] [address] PCP - General Internal Medicine 07/27/16 documented as of this encounter
--- OUTSIDE RECORDS SUMMARY | 2023-12-27 09:01 | External Medical Summary | Summary of Care ---
Author Name Unknown Organization [facility] Address [address] [place] [address] Phone [phone] Care Team Providers Care Operations Accountant Name Role Phone Joseline Brian MD Primary Care Provider + Reason for Visit * Reason Comments Ultrasound Encounter Details Date Type Department Care Team (Late st Contact Info) Description 09/11/2023 11:30 AM EST Office Visit Bed Operator Obstetrics Maternal Medicine, [place] [address] [place], [place] [phone] Mor Oswald MD [address] [place], [place] [phone] Chronic hypertension in *; Antepartum multigravida of [...] assessment of proteinuria (24-hour urine protein or sunghcm-pc-jpsbdszcci ratio) and CBC, serum AST/ALT/creatinine. If patient [...] mRNA, LNP-s, No Pre serve, 2-Dose Series ([employer]) 10/01/2020,09/10/2020 DTWP - Dipth/Tet/Whole Cell Pertussis 04/02/2005 [...] Mosquera is at 23w6d who presents to [facility] for an ultrasound and follow-up of [...] 09/26/2023 10:20 AM EST [facility] [address] [place] [phone] Jim Vasques [address] [place] [address] 09/26/2023 10:30 AM EST Office Visit Gynecology/Obstetrics [place] [address] Karol Beavers CRNP [address] [place] [address] 10/03/2023 11:00 AM EST Office Visit Bed Operator Obstetrics Maternal Medicine, [place] [address] [place] [address] Fabrice Neldamichael Stauffer, DO [address] [place] [address] 10/03/2023 11:00 AM EST Imaging Maternal Medicine Imaging, [place] [facility] [place] [phone] 10/24/2023 11:45 AM EST [...] trimester documented in this encounter Care Teams Operations Accountant Relationship Specialty Start Date End Date Joseline Brian MD 200 [facility] [place] [address] PCP - General Internal Medicine 07/27/16 documented as of this encounter
--- OUTSIDE RECORDS SUMMARY | 2023-12-27 09:01 | External Medical Summary | Summary of Care ---
Author Name Unknown Organization [facility] Address [address] [place] [address] Phone [phone] Care Team Providers Care Boxing Inspector Name Role Phone Joseline Brian MD Primary Care Provider + Reason for Visit * Reason Comments Return Visit Encounter Details Date Type Department Care Team (Late st Contact Info) Description 09/26/2023 10:30 AM EST Office Visit Gynecology/Obstetric s Nara Vasques [address] [place] [address] Karol Beavers CRNP [address] [place] [address] Primigravida of advanced maternal age in second trimester*; High-risk in second trimester; Chronic hypertension in ; Antepartum multigravida of advanced maternal age Allergies Active Allergy Reactions Criticality Noted Date Comments Amoxicillin Rash 10/16/2016 Pollen 05/08/2023 documented as of this encounter (statuses as of 09/26/2023) Medications Medication Sig Dispensed Refills Start Date [...] as of this encounter (statuses as of 09/26/2023) Active Problems Problem Noted Date Diagnosed Date [...] assessment of proteinuria (24-hour urine protein or sfhwpxo-yq-tlglrkuuia ratio) and CBC, serum AST/ALT/creatinine. If patient [...] as of this encounter (statuses as of 09/26/2023) Resolved Problems Problem Noted Date Diagnosed Date Resolved Date Supervision of high risk pre gnancy in second trimester 08/09/2023 08/28/2023 with 19 completed weeks gestation 08/09/2023 08/19/2023 Elevated blood pressure affe cting in second trimester, antepartum 07/04/2023 08/02/20 23 Overview: Elevated BP at 14w Positive test 05/08/2023 11 documented as of this encounter (statuses as of 09/26/2023) Immunizations Name Administration Dates Next Due COVID-19 mRNA, LNP-s, No Pre serve, 2-Dose Series ([employer]) 10/01/2020,09/10/2020 DTWP - Dipth/Tet/Whole Cell Pertussis 04/02/2005 [...] have money to get more. Patient refused [place] Depression Scale Answer Date Recorded [place] Depression Scale Total 8 09/26/2023 The thought [...] Sign Reading Time Taken Comments Blood Pressure 136/78 09/26/2023 10:18 AM EST Pulse - - Temperature - - Respiratory Rate - - Oxygen Saturation - - Inhaled Oxygen Concentration - - Weight 81.6 kg (180 lb) 09/26/2023 10:18 AM EST Height 160 cm (5' 3") 09/26/2023 10:18 AM EST Body Mass Index 31.89 09/26/2023 10:18 AM EST documented in this encounter Progress Notes * Karol Beavers CRNP - 09/26/2023 10:47 AM EST 26w Feeling well overall. Starting to feel overwhelmed about bringing home a baby, but doing well. Baby is active. No contractions, bleeding, or LOF. MFM appt next week. Glucola with next visit in 2 weeks. AIDE Nick documented in this encounter Plan of Treatment Upcoming Encounters Date Type Department Care Team (Late st Contact Info) Description 10/03/2023 11:00 AM EST Office Visit Softball Winder Obstetrics Maternal Medicine, [facility] [address] [place] [address] Nelda Avina, DO [address] [place] [address] 10/03/2023 11:00 AM EST Imaging Maternal Medicine Imaging, [facility] [address] [facility] [place] [phone] 10/11/2023 9:30 AM EST Laboratory Laboratory, [facility] [place] [phone] [facility] [address] [facility] [place] [address] 10/11/2023 9:45 AM EST Office Visit Gynecology/Obstetrics [facility] [address] [facility] [place] [address] Karol Beavers CRNP [address] [facility] [address] 10/24/2023 11:45 AM EST Imaging Maternal Medicine Imaging, [facility] [address] [facility] [place] [phone] Health Maintenance Due Date Last Done Comments [...] Diagnosis Primigravida of advanced maternal age in second trimester- Primary High-risk in second trimester Chronic hypertension in Benign essential hypertension complicating , childbirth, and the puerperium, unspecified as to episode of care Antepartum multigravida of advanced maternal age documented in this encounter Care Teams Boxing Inspector Relationship Specialty Start Date End Date Joseline Brian MD [address] [place] [address] PCP - General Internal Medicine 07/27/16 documented as of this encounter
--- OUTSIDE RECORDS SUMMARY | 2023-12-27 09:01 | External Medical Summary | Summary of Care ---
Author Name Unknown Organization [facility] Address [address] [place] [address] Phone [phone] Care Team Providers Care Manager Medicare Name Role Phone Joseline Brian MD Primary Care Provider + Encounter Details Date Type Department Care Team (Late st Contact Info) Description 10/03/2023 11:00 AM EST Office Visit Ship Officer Obstetrics Maternal Medicine, [address] [address] Nelda Avina, DO [address] [place] [address] Poor growth affecting management of [...] assessment of proteinuria (24-hour urine protein or nsgeolm-qw-oouotkjjje ratio) and CBC, serum AST/ALT/creatinine. If patient [...] mRNA, LNP-s, No Pre serve, 2-Dose Series ([employer]) 10/01/2020,09/10/2020 DTWP - Dipth/Tet/Whole Cell Pertussis 04/02/2005 [...] have money to get more. Patient refused [place] Depression Scale Answer Date Recorded [place] Depression Scale Total 8 09/26/2023 The thought [...] hospital or clinic location. After connecting through [employer] [facility] [employer], patient was verified with two unique identifiers. Patient (or authorized legal sales representative wire rope) was then informed that this was a [...] that I have reviewed their record in [employer] and presented the opportunity for them to [...] Description 10/10/2023 2:30 PM EST Office Visit Ship Officer Obstetrics Maternal Medicine, [address] [place] [address] Nelda Avina DO [address] [place] [address] 10/10/2023 2:30 PM EST Imaging [facility] [phone] 10/11/2023 9:30 AM EST Laboratory Laboratory, [address] [address] [place] [address] 10/11/2023 9:45 AM EST Office Visit Gynecology[facility]stetrics [facility] [address] Karol Beavers CRNP [address] [place] [address] 10/18/2023 8:00 AM EST Office Visit Ship Officer Obstetrics Maternal Medicine, [place] [address] [place] [address] Richy Person, [address] [place] [address] 10/18/2023 8:00 AM EST Imaging [facility], [place] [address] [place] [address] 10/24/2023 11:45 AM EST Imaging Maternal Medicine Imaging, [place] [phone] 11/21/2023 9:30 AM EDT Imaging Maternal Medicine Imaging, [address] [place] [phone] 12/19/2023 9:30 AM EDT Office Visit Ship Officer Obstetrics Maternal Medicine, [address] [place] [address] Nelda Avina, DO [address] [place] [address] 12/19/2023 9:30 AM EDT Imaging Maternal Medicine Imaging, [place] [phone] Scheduled Orders Name Type Priority Associated Diagnoses [...] care documented in this encounter Care Teams Manager Medicare Relationship Specialty Start Date End Date Joseline Brian MD [address] [place] [address] PCP - General Internal Medicine 07/27/16 documented as of this encounter
--- OUTSIDE RECORDS SUMMARY | 2023-12-27 09:02 | External Medical Summary | Summary of Care ---
Author Name Unknown Organization [facility] Address [address] [place] [address] Phone [phone] Care Team Providers Care Manager Analytical Name Role Phone Joseline Brian MD Primary Care Provider + Encounter Details Date Type Department Care Team (Late st Contact Info) Description 08/19/2023 Orders Only Outcomes Research Department [address] [place] [address] Sabi Calvillo CHRA [employer] Other*[id number] Allergies Active Allergy Reactions Criticality Noted Date Comments Amoxicillin Rash 10/16/2016 Pollen 05/08/2023 documented as of this encounter (statuses as of 08/19/2023) Medications Medication Sig Dispensed Refills Start Date [...] as of this encounter (statuses as of 08/19/2023) Active Problems Problem Noted Date Diagnosed Date Antepartum multigravida of advanced maternal age 1208/09/2023 Overview: Age 38 at delivery NIPT: low risk / boy MFM anatomy scan scheduled 08/19/2023 Last Assessment & Plan: CONSIDERATIONS: We reviewed the most pertinent aspects of the following: Advanced maternal age (AMA) refers to a woman with a miles who will be at the age of 35 or older at the estimated time of delivery and may be associated with increased morbidity. Prior to the appointment the patient has had genetic screening and it was reported as low risk.. In addition to the risk of chromosomal abnormalities, there is an increased risk of congenital/structural anomalies. RECOMMENDATIONS: Recommend MFM anatomy ultrasound at 19-20 weeks gestation. Supervision of high risk in [facility] 08/09/2023 with 19 completed weeks gestation 04/2023 Normal 08/01/2023 Chronic hypertension in 08/01/2023 Overview: Chronic hypertension in Diagnosed at 18 weeks gestation Taking daily low dose ASA Doing daily home BP monitoring: running 130s / high 80's to low 90's Baseline Preeclampsia Labs Lab Results Component Value [...] 120/60 07/13/21 122/74 Last Assessment & Plan: Considerations: Women with chronic hypertension during are at significantly increased risk for morbidity. Signs and symptoms of superimposed pre-eclampsia were reviewed; instructed patient to contact primary OB care provider if these symptoms occur. Recommendations: Obtain baseline lab work SCOTTIE (if not already done) with assessment of proteinuria (24-hour urine protein or vzjcazh-nj-aijiuxnzty ratio) and CBC, serum AST/ALT/creatinine. Recommend initiation of aspirin (81mg) daily, from [...] Between 37 0/7 and 39 6/7 weeks Elderly primigravida 05/08/2023 Chronic intractable headache 02/05/2022 Allergic rhinitis 02/05/2022 Recurrent major depressive disorder, in partial remission 12/05/2021 Estimated Date of Delivery Comme nts Yes 01/02/2024 Based on last me nstrual period of 03/28/2023 (Exact Date), 03/28 - 03/31 was LMP documented as of this encounter (statuses as of 08/19/2023) Resolved Problems Problem Noted Date Diagnosed Date Resolved Date Elevated blood pressure affe cting in second trimester, antepartum 07/04/2023 08/02/20 Overview: Elevated BP at 14w Positive test 05/08/2023 11 documented as of this encounter (statuses as of 08/19/2023) Immunizations Name Administration Dates Next Due COVID-19 [...] you got the money to buy more. Never true 11/11/19 21 Within the past 12 months, t he food you bought just didn't last and you didn't have money to get more. Never true 11/10/2020 Estimated Date of Delivery Comme nts Yes [...] Care Team (Late st Contact Info) Description 08/19/2023 12:30 PM EST Office Visit Primary Care Sales Representative Obstetrics Maternal Medicine, [place] [address] [address] [facility] [place] [address] Richy Person, DO [address] [place] [facility] [place] [address] 08/19/2023 12:30 PM EST Imaging Radiology [facility] [address] [facility] [place] [address] 08/29/2023 9:00 AM EST Office Visit Gynecology/Obstetrics Nara Vasques [address] [facility] [place] [address] Backer, AIDE Shin [address] [place] [address] Scheduled Orders Name Type Priority Associated Diagnoses Orde r Schedule MYCODE INITIAL ADULT Lab Routine My[facility] Research Other*[id number] Expected: 08/19/2023 (Approximate), Expires: 09/07/2024 Health Maintenance Due Date Last Done Comments [...] this encounter Visit Diagnoses Diagnosis [employer] Other*[id number] documented in this encounter Care Teams Manager Analytical Relationship Specialty Start Date End Date Joseline Brian MD [address] [place] [address] PCP - General Internal Medicine 07/27/16 documented as of this encounter
--- OUTSIDE RECORDS SUMMARY | 2023-12-27 09:02 | External Medical Summary | Summary of Care ---
Author Name Unknown Organization [facility] Address [address] [place] [address] Phone [phone] Care Team Providers Care Cemetery Counselor Name Role Phone Joseline Brian MD Primary Care Provider + Reason for Visit * Reason Onset Date Comments Advice 08/14/2023 Encounter Details Date Type Department Care Team (Late st Contact Info) Description 08/14/2023 Telephone Radiology [facility] [address] [facility] [address] BackerPriscilla CRNP [address] [place] [address] Advice Allergies Active Allergy Reactions Criticality Noted Date Comments Amoxicillin Rash 10/16/2016 Pollen 05/08/2023 documented as of this encounter (statuses as of 08/14/2023) Medications Medication Sig Dispensed Refills Start Date [...] as of this encounter (statuses as of 08/14/2023) Active Problems Problem Noted Date Diagnosed Date [...] gestation. Supervision of high risk in [facility] 08/09/2023 with 19 completed weeks gestation 04/2023 [...] assessment of proteinuria (24-hour urine protein or raxfauq-ae-oouvbrfkhb ratio) and CBC, serum AST/ALT/creatinine. Recommend initiation [...] as of this encounter (statuses as of 08/14/2023) Resolved Problems Problem Noted Date Diagnosed Date Resolved Date Elevated blood pressure affe cting in second trimester, antepartum 07/04/2023 08/02/20 23 Overview: Elevated BP at 14w Positive test 05/08/2023 11/3 documented as of this encounter (statuses as of 08/14/2023) Immunizations Name Administration Dates Next Due COVID-19 mRNA, LNP-s, No Pre serve, 2-Dose Series ([employer]) 10/01/2020,09/10/2020 DTWP - Dipth/Tet/Whole Cell Pertussis 04/02/2005 [...] Telephone Encounter - Audrey Davis LPN - 08/14/2023 10:00 AM EST Pt keeping MFM anatomy scan * Telephone Encounter - Katie Hernandez RDMS - 08/14/2023 9:53 AM EST Gretchen is scheduled for an anatomy US tomorrow. She also has an order for MFM and it looks like she is scheduled with them on 08/19/23. Should the anatomy scheduled with us be cancelled since she will be going to [facility] on Saturday? Please advise and inform patient if this appt needs canceled. Thank you! documented in this encounter Plan of Treatment Upcoming Encounters Date Type Department Care Team (Late st Contact Info) Description 08/19/2023 12:30 PM EST Office Visit Manager Subway Obstetrics Maternal Medicine, [place] [address] [place] [address] Richy Person, [address] [place] [address] 08/19/2023 12:30 PM EST Imaging Radiology [facility], [place] [address] [place] [address] 08/29/2023 9:00 AM EST Office Visit Gynecology/Obstetrics [facility] [address] [place] [address] Priscilla Archer CRNP [address] [place] [address] Health Maintenance Due Date Last Done Comments [...] filedocumented as of this encounter Care Teams Cemetery Counselor Relationship Specialty Start Date End Date Joseline Brian MD [address] [place] [address] PCP - General Internal Medicine 07/27/16 documented as of this encounter
--- OUTSIDE RECORDS SUMMARY | 2023-12-27 09:02 | External Medical Summary | Summary of Care ---
Author Name Unknown Organization [facility] Address [address] [place] [address] Phone [phone] Care Team Providers Care Social Media Developer Name Role Phone Joseline Brian MD Primary Care Provider + Reason for Visit * Reason Comments Ultrasound Encounter Details Date Type Department Care Team (Late st Contact Info) Description 08/19/2023 12:30 PM EST Office Visit Heating And Cooling Technician Obstetrics Maternal Medicine, [place] [address] [place], [place] [phone] Richy Person, [address] [place], [place] [id number] Antepartum multigravida of advanced maternal age*; Chronic hypertension in ; 20 weeks gestation of Allergies Active Allergy Reactions [...] will to reassess in about 3-4 weeks. Supervision of high risk in [facility] 08/09/2023 Normal 08/01/2023 Chronic hypertension in 08/01/2023 Overview: [...] Problem Noted Date Diagnosed Date Resolved Date with 19 completed weeks gestation 08/09/2023 08/19/2023 Elevated blood pressure affe cting in second trimester, antepartum 07/04/2023 08/02/20 Overview: Elevated BP at 14w Positive test 05/08/202307/05 documented as of this encounter (statuses as of 08/19/2023) Immunizations Name Administration Dates Next Due COVID-19 mRNA, LNP-s, No Pre serve, 2-Dose Series ([employer]) 10/01/2020,09/10/2020 DTWP - Dipth/Tet/Whole Cell Pertussis 04/02/2005 [...] Sign Reading Time Taken Comments Blood Pressure 139/67 08/19/2023 12:34 PM EST Pulse - - Temperature - - Respiratory Rate - - Oxygen Saturation - - Inhaled Oxygen Concentration - - Weight - - Height - - Body Mass Index - - documented in this encounter Progress Notes * Richy Person, DO - 08/19/2023 5:38 PM EST MATERNAL MEDICINE VISIT Gretchen Mosquera is at 20w4d who presents to [facility] for an ultrasound and follow-up of her high risk . PHYSICAL EXAM: BP 139/67 | LMP 03/28/2023 (Exact Date) Comment: 03/28 - 03/31 was LMP General: pleasant, alert and oriented, no acute distress She is being seen today by Maternal- Medicine for the following reasons: Problem List Items Addressed This Visit Chronic hypertension in There is suspicion for mild chronic hypertension secondary to the observation of several mild BP elevations in early . She monitors her BP's at home and reports that most are normal but have ranged from 125/80's to 132/98. We discussed treatment if she has persistent values > 140/90. Antepartum multigravida of advanced maternal age - Primary She presents for a anatomy survey secondary [...] identify all anomalies, but it is reassuring thatno anomalies were seen today. We reviewed the biometry and estimated weight, which are on the smaller side of normal overall. She reports a family history of smaller babies, and we discussed that this may be a constitutional finding. Given the early gestational age, we will to reassess in about 3-4 weeks. Other Visit Diagnoses 20 weeks gestation of We reviewed today's ultrasound findings. (For full report, please refer to ultrasound report provided separately). Ms. Kidd questions were answered to her satisfaction. RECOMMENDATIONS: Recommend follow up ultrasound with MFM in 3 weeks for growth and completion of anatomy. Thank you for allowing us to participate in the care of this patient. Please call with any questions. Richy Person DO 08/19/2023 5:38 PM documented in this encounter Miscellaneous Notes * Assessment & Plan Note - Richy Person DO - 08/19/2023 5:24 PM EST Associated Problem(s): Chronic hypertension in There is suspicion for mild chronic hypertension secondary to the observation of several mild BP elevations in early . She monitors her BP's at home and reports that most are normal but have ranged from 125/80's to 132/98. We discussed treatment if she has persistent values > 140/90. * Assessment & Plan Note - Richy Person DO - 08/19/2023 1:43 PM EST Associated Problem(s): Antepartum multigravida of advanced maternal age She presents for a anatomy survey secondary [...] identify all anomalies, but it is reassuring thatno anomalies were seen today. We reviewed the biometry and estimated weight, which are on the smaller side of normal overall. She reports a family history of smaller babies, and we discussed that this may be a constitutional finding. Given the early gestational age, we will to reassess in about 3-4 weeks. documented in this encounter Plan of Treatment Upcoming Encounters Date Type Department Care Team (Late st Contact Info) Description 08/29/2023 9:00 AM EST Office Visit Gynecology/Obstetrics [facility] [address] [facility] [place] [address] Priscilla Archer CRNP [address] [place] [address] 09/11/2023 11:30 AM EST Office Visit Heating And Cooling Technician Obstetrics Maternal Medicine, [place] [address] [place] [address] Mor Oswald MD [address] [place] [address] 09/11/2023 11:30 AM EST Imaging Radiology [facility][1] [address] [place] [address] 10/03/2023 11:00 AM EST Office Visit Heating And Cooling Technician Obstetrics Maternal Medicine, [facility] [address] [place] [address] Nelda Avina DO [address] [place] [address] 10/03/2023 11:00 AM EST Imaging Maternal Medicine Imaging, [facility] Vas[facility] [address] [place] [phone] 10/24/2023 11:45 AM EST Imaging Maternal Medicine Imaging, [place] [place] [address] [place] [phone] Health Maintenance Due Date Last Done [...] puerperium, unspecified as to episode of care 20 weeks gestation of state, incidental documented in this encounter Care Teams Social Media Developer Relationship Specialty Start Date End Date Joseline Brian MD [address] [place] [address] PCP - General Internal Medicine 07/27/16 documented as of this encounter"
--- OUTSIDE RECORDS SUMMARY | 2023-12-27 09:02 | External Medical Summary | Summary of Care ---
Author Name Unknown Organization [facility] Address [address] [place] [address] Phone [phone] Care Team Providers Care Natural Gas Shothole Driller Name Role Phone Joseline Brian MD Primary Care Provider + Reason for Visit * Reason Comments Return Visit Encounter Details Date Type Department Care Team (Late st Contact Info) Description 08/29/2023 9:00 AM EST Office Visit Gynecology/Obstetric s Nara Vasques [address] [place] [address] BackPriscilla quinn CRNP [address] [place] [address] High-risk in second trimester*; Primigravida of advanced maternal age in second trimester; Chronic hypertension in ; [...] assessment of proteinuria (24-hour urine protein or ldrjgqx-mq-tcgjpfdkml ratio) and CBC, serum AST/ALT/creatinine. If patient [...] Elevated BP at 14w Positive test 05/08/2023 113 documented as of this encounter (statuses as of 08/29/2023) Immunizations Name Administration Dates Next Due COVID-19 mRNA, LNP-s, No Pre serve, 2-Dose Series ([employer]) 10/01/2020,09/10/2020 DTWP - Dipth/Tet/Whole Cell Pertussis [...] Sign Reading Time Taken Comments Blood Pressure 120/82 08/29/2023 8:49 AM EST Pulse - - Temperature - - Respiratory Rate - - Oxygen Saturation - - Inhaled Oxygen Concentration - - Weight 78 kg (172 lb) 08/29/2023 8:49 AM EST Height - - Body Mass Index 30.47 08/01/2023 8:48 AM EST documented in this encounter Progress Notes * Priscilla Archer CRNP - 08/29/2023 8:50 AM EST 22w0d No bleeding/cramping. Reports movement. Had her anatomy scan with MFM given AMA and chronic hypertension. She has a follow up growth scan scheduled. She is concerned given EFW in the 7th %ile - reviewed MFM report with her and her .They report family histories of small babies on both sides. She has had adequate weight gain thus far and fundal height is appropriate; reassured, will continue to follow. Not currently on anti-hypertensive medication. BP is normal. 4 week return; labs at that time. AIDE Beck * Tanya Cm LPN - 08/29/2023 8:48 AM EST 22w0d Denies vaginal bleeding/rom + movement documented in this encounter Plan of Treatment Upcoming Encounters Date Type Department Care Team (Late st Contact Info) Description 09/11/2023 11:30 AM EST Office Visit Pre Press Proofer Obstetrics Maternal Medicine, [place] [address] [place] [address] Mor Oswald MD [address] [place] [address] 09/11/2023 11:30 AM EST Imaging Radiology [facility], [place] [address] [place] [address] 09/26/2023 10:20 AM EST Laboratory Laboratory, [facility] [address] [facility] [place] [id number] [facility] [address] [place] [facility] [place] [address] 09/26/2023 10:30 AM EST Office Visit Gynecology/Obstetrics [facility] [address] [facility] [address] Karol Beavers CRNP [address] [facility] [place] [address] 10/03/2023 11:00 AM EST Office Visit Pre Press Proofer Obstetrics Maternal Medicine, [facility] [address] [facility] [address] Nelda Avina DO [address] [place] [address] 10/03/2023 11:00 AM EST Imaging Maternal Medicine Imaging, [facility] [address] [facility] [place] [address] 10/24/2023 11:45 AM EST Imaging Maternal Medicine Imaging, [facility] [address] [facility] [place] [phone] Scheduled Orders Name Type Priority Associated Diagnoses Orde r Schedule 50-G GESTATIONAL GLUCOSE, 1 HOUR Lab Routine High-risk in second trimester Expected: 09/29/2023 (Approximate), Expires: 08/29/2024 CBC WITH WBC DIFFERENTIAL AND ANEMIA REFLEX WORKUP Lab Routine High-risk in second trimester Expected: 09/29/2023 (Approximate), Expires: 08/29/2024 SYPHILIS ANTIBODY SCREEN WITH REFLEX TO RPR Lab Routine High-risk in second trimester Expected: 09/29/2023 (Approximate), Expires: 08/29/2024 URINALYSIS OBSTETRICS, POINT OF CARE Point of Care Testing - Unsolicited Results Routine Chronic hypertension in Ordered: 08/29/2023 Health Maintenance Due Date Last Done Comments [...] encounter Visit Diagnoses Diagnosis High-risk in second trimester- Primary Primigravida of advanced maternal age in second trimester Chronic hypertension in Benign essential hypertension complicating , childbirth, and the puerperium, unspecified as to episode of care Antepartum multigravida of advanced maternal age documented in this encounter Care Teams Natural Gas Shothole Driller Relationship Specialty Start Date End Date Joseline Brian MD [address] [place] [place] [address] PCP - General Internal Medicine 07/27/16 documented as of this encounter
--- OUTSIDE RECORDS SUMMARY | 2023-12-27 09:02 | External Medical Summary | Summary of Care ---
Author Name Unknown Organization [facility] Address [address] [place] [address] Phone [phone] Care Team Providers Care Coremaker Supervisor Name Role Phone Joseline Brian MD Primary Care Provider + Reason for Visit * Reason Comments Consultation Chronic hypertension * Evaluate & Treat - Unlimited Visits (Within 10 days (routine)) - Authorized Specialty Diagnoses / Procedures Referred By Christ t Referred To Contact Obstetrics/Gynecology / Maternal Medicine Diagnoses Chronic hypertension in Priscilla Archer CRNP [address] [place] [address] Referral ID Status Reason Start Date Expiration Date Visits Requested Visits Authorized [id number] Authorized Specialty Services Required 3 08/01/2024 [id number] Encounter Details Date Type Department Care Team (Late st Contact Info) Description 08/09/2023 9:45 AM EST Telemedicine School Teacher Obstetrics Maternal Medicine, [place] [address] [place], [place] [phone] Sabi Gary CRNP [address], [place] [phone] Chronic hypertension in *; Antepartum multigravida of advanced maternal age; Supervision of high risk in second trimester; with 19 completed weeks gestation Allergies Active Allergy Reactions Criticality Noted Date Comments Amoxicillin Rash 10/16/2016 Pollen 05/08/2023 documented as of this encounter (statuses as of 08/09/2023) Medications Medication Sig Dispensed Refills Start Date [...] as of this encounter (statuses as of 08/09/2023) Active Problems Problem Noted Date Diagnosed Date [...] weeks gestation. Supervision of high risk in [facility] 08/09/2023 with 19 completed weeks gestation [...] assessment of proteinuria (24-hour urine protein or atqwypj-vj-ehqstmeuzg ratio) and CBC, serum AST/ALT/creatinine. Recommend initiation [...] as of this encounter (statuses as of 08/09/2023) Resolved Problems Problem Noted Date Diagnosed Date Resolved Date Elevated blood pressure affe cting in second trimester, antepartum 07/04/2023 08/02/20 23 Overview: Elevated BP at 14w Positive test 05/08/202307/05 documented as of this encounter (statuses as of 08/09/2023) Immunizations Name Administration Dates Next Due COVID-19 mRNA, LNP-s, No Pre serve, 2-Dose Series ([employer]) 10/01/2020,09/10/2020 DTWP - Dipth/Tet/Whole Cell Pertussis 04/02/2005 PPD 09/20/2017,09/11/2017 SEASONAL INFLUENZA, PF, 6 M & Above, IM , (FLULAVAL or FLUZONE) 06/28/2021 Seasonal Influenza, QUAD, wi th Preserv, [...] as of this encounter Progress Notes * Sabi Gary CRNP - 08/09/2023 11:05 AM EST MATERNAL MEDICINE CONSULT Gretchen Mosquera Consult date: 08/09/23 REFERRING PROVIDER: Self Patient location: HOME. I was in a hospital or clinic location. After connecting through Blink Messenger,patient was verified with two unique identifiers. Patient (or authorized legal inside account representative) was then informed that this was a Telemedicine visit and being conducted confidentially over secure lines. Methods to assure confidentiality were taken. Patient acknowledged consent and understanding of pr ivacy and security of the Telemedicine visit. The patient agreed to participate. Gretchen Mosquera is a 38 year old with intrauterine at 19w1d (Estimated Date of Delivery: 01/02/24 by exact LMP) who presents today for an MFM consult due to chronic hypertension and advanced maternal age. HPI/CURRENT : pre- BMI=overweight (72.6 kg (160 lb); 5' 3"); FOB [place]; complicated by above. Genetic testing: Low Risk Cell Free DNA [id number] Problems (from 06/04/23 to present) Problem Noted Resolved Antepartum multigravida of advanced maternal age 1208/09/2023 by Sabi Gary CRNP No Overview Signed 08/09/2023 10:49 AM by Sabi Gary CRNP Age 38 at delivery NIPT: low risk / boy MFM anatomy scan scheduled 08/19/2023 Chronic hypertension in 08/01/2023 by Priscilla Archer CRNP No Overview Addendum 08/09/2023 10:53 AM by Sabi Gary CRNP Chronic hypertension in Diagnosed at 18 weeks [...] 110/70 06/06/22 116/62 02/05/22 120/60 07/13/21 122/74 I have reviewed this patient's previous OB ultrasound reports, pertinent labwork and testing provided by her referring OB provider. Current Outpatient Medications Medication Sig Dispense Refill Aspirin 81 MG Oral Tablet Delayed Release Take 1 Tablet by mouth in the morning. Lactaid Fast Act 9000 UNIT Oral Tablet (Lactase) Take by mouth. Vit-Fe Fumarate-FA ( VITAMIN) 27-0.8 MG TABS Take by mouth. Vitamin D (Cholecalciferol) 25 MCG (1000 UT) Oral Capsule Take by mouth . No current facility-administered medications for this visit. 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 Stuart - Family History Problem Relation Age of Onset Mental Disorder Mother depression anxiety Migraines Mother Mental Disorder Father bipolor depression anxiety Gastro-intestinal disorder Father kidney stones Allergies Father Allergic rhinitis Allergies Brother Nasal allergies No Past Hx Brother Allergies Grandmother (Maternal) Nasal allergies Migraines Grandmother (Maternal) Social History Tobacco Use Smoking status: Never Smokeless tobacco: Never Tobacco comments: No passive smoke exposures Vaping Use Vaping Use: Never used Substance Use Topics Alcohol use: Not Currently Drug use: No REVIEW OF SYSTEMS: headaches: no nausea/vomiting: reports occas n/v reports movement: yes abdominal pain/tenderness/cramping/contractions: no vaginal bleeding: no vaginal leaking of fluid: no all other systems negative PHYSICAL EXAM: LMP 03/28/2023 (Exact Date) General: Well appearing Psych: Alert to time, place, and person and Pleasant DISCUSSION/RECOMMENDATIONS: Problem List Items Addressed This Visit [id number] Chronic hypertension in - Primary Considerations: Women with chronic hypertension during are at significantly increased risk for morbidity. Signs and symptoms of superimposed pre-eclampsia were reviewed; instructed patient to contact primary OB care provider if these symptoms occur. Recommendations: Obtain baseline lab work SCOTTIE (if not already done) with assessment of proteinuria (24-hour urine protein or faziakn-ph-majgtbrwfs ratio) and CBC, serum AST/ALT/creatinine. Recommend initiation of aspirin (81mg) daily, from 13 weeks until delivery, to decrease the risk ofsuperimposed preeclampsia. Daily home blood pressure monitoring, especially in the second half of the . It may be useful to have the patient validate their home device with their primary OB care provider's office. Patients with BP less than 140/90 maintained with antihypertensives should continue medication during . Discontinuation of YULISSA inhibitors or angiotensin type II receptor antagonists under the guidance ofthe primary care physician prior to conception of or upon knowledge of . Initiate or adjust antihypertensive medication if BP is 140/90 or greater on at least two occasionsat least 4 hours apart and refer patient [...] Between 37 0/7 and 39 6/7 weeks Antepartum multigravida of advanced maternal age CONSIDERATIONS: We reviewed the most pertinent aspects [...] MFM anatomy ultrasound at 19-20 weeks gestation. Follow up ultrasound with Maternal Medicine is scheduled on 08/19/[address] Person for anatomy scan secondary to chronic hypertension and advanced maternal age. Patient is aware of upcoming MFM appointment. Total time spent face to face in this visit was 30 minutes of which more than 50% was spent discussing and counseling the patient/caregiver(s) regarding chronic hypertension and advanced maternal age. Total time spent on this date of service including non face to face was 40 minutes in preparation,delivery, and documentation of care provided to Gretchen Mosquera, excluding time spent in performance of separately billable services. Details outlined above in impression and plan. AIDE Rios 08/09/2023 11:09 AM documented in this encounter Miscellaneous Notes * Assessment & Plan Note - Sabi Gary CRNP - 08/09/2023 11:00 AM EST Associated Problem(s): Chronic hypertension in Considerations: Women with chronic hypertension during are at significantly increased risk for morbidity. Signs and symptoms of superimposed pre-eclampsia were reviewed; instructed patient to contact primary OB care provider if these symptoms occur. Recommendations: Obtain baseline lab work SCOTTIE (if not already done) with assessment of proteinuria (24-hour urine protein or oeepbjr-ce-vtguvlsxix ratio) and CBC, serum AST/ALT/creatinine. Recommend initiation of aspirin (81mg) daily, from 13 weeks until delivery, to decrease the risk ofsuperimposed preeclampsia. Daily home blood pressure monitoring, especially in the second half of the . It may be useful to have the patient validate their home device with their primary OB care provider's office. Patients with BP less than 140/90 maintained with antihypertensives should continue medication during . Discontinuation of YULISSA inhibitors or angiotensin type II receptor antagonists under the guidance ofthe primary care physician prior to conception of or upon knowledge of . Initiate or adjust antihypertensive medication if BP is 140/90 or greater on at least two occasionsat least 4 hours apart and refer patient [...] Between 37 0/7 and 39 6/7 weeks * Assessment & Plan Note - Sabi Gary CRNP - 08/09/2023 10:51 AM EST Associated Problem(s): Antepartum multigravida of advanced maternal age CONSIDERATIONS: We reviewed the most pertinent aspects [...] MFM anatomy ultrasound at 19-20 weeks gestation. documented in this encounter Plan of Treatment Upcoming Encounters Date Type Department Care Team (Late st Contact Info) Description 08/15/2023 12:45 PM EST Imaging Radiology [facility] 2nd [facility] [place] [address] 08/19/2023 12:30 PM EST Office Visit School Teacher Obstetrics Maternal Medicine, [place] [address] [place] [address] Richy Person [address] [place] [address] 08/19/2023 12:30 PM EST Imaging Radiology [place], [place] [address] [place] [address] 08/29/2023 9:00 AM EST Office Visit Gynecology/Obstetrics [facility] [address] [facility] [place] [address] Priscilla Archer CRNP [address] [facility] [place] [address] Scheduled Referrals Name Type Priority Associated Diagnoses Orde r Schedule MATERNAL MEDICINE REFERRAL OP Referral Within 10 days (routine) Chronic hypertension in Ordered: 08/01/2023 Health Maintenance Due Date Last Done Comments [...] care Antepartum multigravida of advanced maternal age Supervision of high risk in second trimester Unspecified high-risk with 19 completed weeks gestation documented in this encounter Care Teams Coremaker Supervisor Relationship Specialty Start Date End Date Joseline Brian MD [address] [facility] [place] [place] [address] PCP - General Internal Medicine 07/27/16 documented as of this encounter
--- OUTSIDE RECORDS SUMMARY | 2023-12-27 09:02 | External Medical Summary | Summary of Care ---
Author Name Unknown Organization [facility] Address [address] [place] [address] Phone [phone] Care Team Providers Care Mass Spectrometry Manager Name Role Phone Joseline Brian MD Primary Care Provider + Reason for Visit * Reason Onset Date Comments Referral 08/01/2023 Encounter Details Date Type Department Care Team (Late st Contact Info) Description 08/01/2023 Telephone Animal Nursery Worker Obstetrics Maternal Medicine, [place] [address], [place] [phone] [place], Nurse Animal Nursery Worker [facility] [address] [place], [place] [phone] Referral Allergies Active Allergy Reactions Criticality Noted Date Comments Amoxicillin Rash 10/16/2016 Pollen 05/08/2023 documented as of this encounter (statuses as of 08/05/2023) Medications Medication Sig Dispensed Refills Start Date [...] as of this encounter (statuses as of 08/05/2023) Active Problems Problem Noted Date Diagnosed Date Normal 08/01/2023 Chronic hypertension in 08/01/2023 Overview: Diagnosed 18 wks. Baseline preE labs normal. Chronic hypertension in 2nd trimester: -Maintain maternal BP <160/110, ideally 140-160/90-105 -Antihypertensive therapy with sustained BP >160/100-105 -Home BP monitoring, if appropriate -Radiator Tester on s/s superimposed preeclampsia -Monthly growth scan 3rd trimester: -Monthly growth scan -Twice weekly NSTs 32 weeks -Deliver by FLORENCIO Elderly primigravida 05/08/2023 Chronic intractable headache 02/05/2022 Allergic rhinitis 02/05/2022 Recurrent major depressive disorder, in partial remission 12/05/2021 Estimated Date of Delivery Comme nts Yes 01/02/2024 Based on last me nstrual period of 03/28/2023 (Exact Date), 03/28 - 03/31 was LMP documented as of this encounter (statuses as of 08/05/2023) Resolved Problems Problem Noted Date Diagnosed Date Resolved Date Elevated blood pressure affe cting in second trimester, antepartum 07/04/2023 08/02/20 23 Overview: Elevated BP at 14w Positive test 05/08/202307/05 documented as of this encounter (statuses as of 08/05/2023) Immunizations Name Administration Dates Next Due COVID-19 mRNA, LNP-s, No Pre serve, 2-Dose Series ([employer]) 10/01/2020,09/10/2020 DTWP - Dipth/Tet/Whole Cell Pertussis 04/02/2005 [...] Miscellaneous Notes * Telephone Encounter - Sania Baeza OSA - 08/05/2023 8:15 AM EST Phone call with patient [phone] phone. Spoke with py Appointment scheduled. Patient aware of date, time and location of Maternal Medicine appointment. * Telephone Encounter - Sania Baeza OSA - 08/01/2023 12:50 PM EST Lvm and sent myG * Telephone Encounter - Kathia Dumas MED ASSIST - 08/01/2023 10:49 AM EST Estimated Date of Delivery: 01/02/24 Please schedule for 45 MINUTE CONSULT SIMPLE MEDICAL WITH TEST CONDUCTOR, in time frame of within 1 week at location [facility] with the indication of CHTN. Please schedule anatomy between 19-21 weeks (08/08/23-08/22/23). Referring Provider: Priscilla Archer CRNP documented in this encounter Plan of Treatment Upcoming Encounters Date Type Department Care Team (Late st Contact Info) Description 08/09/2023 9:45 AM EST Telemedicine Animal Nursery Worker Obstetrics Maternal Medicine, [place] [address] [place] [address] Sabi Gary CRNP [address] [place] [address] 08/15/2023 12:45 PM EST [facility] [address] [place] [address] 08/19/2023 12:30 PM EST Office Visit Animal Nursery Worker Obstetrics Maternal Medicine, [place] [address] [place] [address] Richy Persno [address] [place] [address] 08/19/2023 12:30 PM EST Imaging Radiology [facility], [place] [address] [place] [address] 08/29/2023 9:00 AM EST Office Visit Gynecology/Obstetrics [facility] [address] [place] [address] Priscilla Archer CRNP [address] [facility] [place] [address] Health Maintenance Due Date Last Done Comments [...] filedocumented as of this encounter Care Teams Mass Spectrometry Manager Relationship Specialty Start Date End Date Joseline Brian MD [address] [place] [address] PCP - General Internal Medicine 07/27/16 documented as of this encounter
--- OUTSIDE RECORDS SUMMARY | 2023-12-27 09:02 | External Medical Summary | Summary of Care ---
Author Name Unknown Organization [facility] Address [address] [place] [address] Phone [phone] Care Team Providers Care Stewardess Supervisor Name Role Phone Joseline Brian MD Primary Care Provider + Reason for Visit * Reason Comments Return Visit Encounter Details Date Type Department Care Team (Late st Contact Info) Description 08/29/2023 9:00 AM EST Office Visit Gynecology/Obstetric s Nara Vasques [address] [place] [address] Priscilla Archer CRNP [address] [place] [address] High-risk in second trimester*; Primigravida of advanced maternal age in second trimester; Chronic hypertension in ; Antepartum multigravida of advanced maternal age; Leukocytes in urine Allergies Active Allergy Reactions Criticality Noted Date [...] assessment of proteinuria (24-hour urine protein or xvccsoi-sp-izdwskstcn ratio) and CBC, serum AST/ALT/creatinine. If patient [...] mRNA, LNP-s, No Pre serve, 2-Dose Series ([employer]) 10/01/2020,09/10/2020 DTWP - Dipth/Tet/Whole Cell Pertussis 04/02/2005 [...] labs at that time. AIDE Beck * Adalberto Florez LPN - 08/29/2023 8:48 AM EST 22w0d Denies vaginal bleeding/rom + movement documented in this encounter Miscellaneous Notes * Addendum Note - Adalberto Florez LPN - 08/29/2023 11:19 AM ESTAddended by: ADALBERTO FLOREZ on: 08/29/2023 11:19 AM Modules accepted: Orders documented in this encounter Plan of Treatment Upcoming Encounters Date Type Department Care Team (Late st Contact Info) Description 09/11/2023 11:30 AM EST Office Visit Coat Operator Insulator Obstetrics Maternal Medicine, [place] [address] [place] [address] Mor Oswald MD [address] [place] [address] 09/11/2023 11:30 AM EST Imaging [facility] [place] [address] [place] [address] 09/26/2023 10:20 AM EST Laboratory Laboratory, [facility] [address] [facility] [place] [address] [facility] [address] [facility] [place] [address] 09/26/2023 10:30 AM EST Office Visit Gynecology/Obstetrics [facility] [address] [facility] [place] [address] Karol Beavers CRNP [address] [place] [address] 10/03/2023 11:00 AM EST Office Visit Coat Operator Insulator Obstetrics Maternal Medicine, [facility] [address] [facility] [place] [address] Nelda Avina DO [address] [place] [address] 10/03/2023 11:00 AM EST Imaging Maternal Medicine Imaging, [place] [facility] [address] [place] [address] 10/24/2023 11:45 AM EST Imaging Maternal Medicine Imaging, [place] [address] [place] [address] Pending Results Name Type [...] second trimester Expected: 09/29/2023 (Approximate), Expires: 08/29/2024 Health Maintenance Due Date Last [...] Comments URINALYSIS, POINT OF CARE (ENTER/EDIT) Routine 08/29/2023 High-risk in second trimester Chronic hypertension in documented in this encounter Results * URINALYSIS, POINT OF CARE (ENTER/EDIT) (08/29/2023) Color, Urine Yellow Yellow or Light Yellow Clarity, Urine Clear Clear Glucose, Urine Negative Negative mg/dL Bilirubin, Urine Negative Negative Ketone, Urine Negative Negative mg/dL Specific [place], Urine 1.025 1.003 - 1.030 Blood, Urine Trace-intact Negative pH, Urine 6.0 5.0 - 7.5 units Protein, Urine Negative Negative mg/dL Urobilinogen, Urine 0.2 0.2 - 1.0 mg/dL Nitrite, Urine Negative Negative Esterase, Urine Small Negative Urine 08/29/2023 Priscilla NOBLE LAB POINT O F CARE TEST ENTER/EDIT ORDERABLES documented in this encounter Visit Diagnoses Diagnosis High-risk in second trimester- Primary Primigravida of advanced maternal age in second trimester Chronic hypertension in Benign essential hypertension complicating , childbirth, and the puerperium, unspecified as to episode of care Antepartum multigravida of advanced maternal age Leukocytes in urine Other cells and casts in urine documented in this encounter Care Teams Stewardess Supervisor Relationship Specialty Start Date End Date Joseline Brian MD [address] [facility] [place] [address] PCP - General Internal Medicine 07/27/16 documented as of this encounter
--- OUTSIDE RECORDS SUMMARY | 2023-12-27 09:02 | External Medical Summary ---
Author Name Unknown Address Unknown Organization K01:LABORATORY [facility] - [address] [facility] Laboratory Report Ordering Provider Test Date Status SUHAS WHITNEY 08/29/2023 11:28:09 Final Observation Date Value Abnormality Reference (Units) Status Bacteria identified in Specimen by Culture 08/29/2023 11:28:09 No significant growth Final Test: Culture, Urine, Quant itative
Specimen Source: Urine, Clean Catch
Specimen Type: Urine
Specimen Date: 08/29/2023 11:28 AM
Result Date: 08/30/2023 11:07 AM
Result Status: Final result
Resulting Lab: LABORATORY [facility]
[address]
[place] [address]

CULTURE

No significant growth

null Performing Location LABORATORY [facility] - [address] [facility] [address]
--- OUTSIDE RECORDS SUMMARY | 2023-12-27 09:02 | External Medical Summary | Summary of Care ---
Author Name Unknown Organization [facility] Address [address] [place] [address] Phone [phone] Care Team Providers Care Leather Products Supervisor Name Role Phone Joseline Brian MD Primary Care Provider + Reason for Visit * Reason Comments Return Visit Encounter Details Date Type Department Care Team (Late st Contact Info) Description 08/29/2023 9:00 AM EST Office Visit Gynecology/Obstetric s Nara Vasques [address] [place] [address] BackPriscilla quinn CRNP [address] [place] [address] High-risk in second trimester*; Primigravida of advanced [...] assessment of proteinuria (24-hour urine protein or wrsylzi-gy-ozruqralhw ratio) and CBC, serum AST/ALT/creatinine. If patient [...] mRNA, LNP-s, No Pre serve, 2-Dose Series ([employer]) 10/01/2020,09/10/2020 DTWP - Dipth/Tet/Whole Cell Pertussis 04/02/2005 [...] Description 09/11/2023 11:30 AM EST Office Visit Manager Of It Obstetrics Maternal Medicine, [place] [address] [place] [address] Mor Oswald MD [address] [place] [address] 09/11/2023 11:30 AM EST [facility] [address] [place] [address] 09/26/2023 10:20 AM EST Laboratory Laboratory, [facility] [address] [facility] [place] [phone] [facility] [address] [place] [address] 09/26/2023 10:30 AM EST Office Visit Gynecology/Obstetrics [facility] [address] [facility] [place] [address] Karol Beavers CRNP [address] [place] [address] 10/03/2023 11:00 AM EST Office Visit Manager Of It Obstetrics Maternal Medicine, [facility] [address] [place] [address] Nelda Avina DO [address] [place] [address] 10/03/2023 11:00 AM EST Imaging Maternal Medicine Imaging, [address] [place] [address] 10/24/2023 11:45 AM EST Imaging Maternal Medicine Imaging, Alma Vasques [address] [place] [address] Scheduled Orders Name Type [...] Negative Ketone, Urine Negative Negative mg/dL Specific [place], Urine 1.025 1.003 - 1.030 Blood, Urine [...] age documented in this encounter Care Teams Leather Products Supervisor Relationship Specialty Start Date End Date Joseline Brian MD [address] [facility] [place] [address] PCP - General Internal Medicine 07/27/16 documented as of this encounter
--- OUTSIDE RECORDS SUMMARY | 2023-12-27 09:03 | External Medical Summary | Summary of Care ---
Author Name Unknown Organization [facility] Address [address] [place] [address] Phone [phone] Care Team Providers Care Plastic Straightening Roll Operator Name Role Phone Joseline Brian MD Primary Care Provider + Reason for Visit * Reason Comments Return Visit Encounter Details Date Type Department Care Team (Late st Contact Info) Description 07/04/2023 10:30 AM EDT Office Visit Gynecology/Obstetric s Nara Vasques [address] [place] [address] Karol Beavers CRNP [address] [place] [address] Primigravida of advanced maternal age in second trimester*; Elevated blood pressure affecting in second trimester, antepartum Allergies Active Allergy Reactions Criticality Noted Date Comments Amoxicillin Rash 10/16/2016 Pollen 05/08/2023 documented as of this encounter (statuses as of 07/04/2023) Medications Medication Sig Dispensed Refills Start Date End Date Status Vit-Fe Fumarate-FA ( VITAMIN) 27-0.8 MG TABS Take by mouth. 0 Active Vitamin D (Cholecalciferol) 25 MCG (1000 UT) Oral Capsule Take by mouth . 0 Active Fluticasone Propionate 50 MCG/ACT Nasal Suspension (Flonase) Administer into each nostril 2 Sprays in the morning. 16 g 6 02/05/2022 Active Additional Information Patient not taking.Reported on 06/04/2023 Cetirizine HCl 10 MG Oral Tablet (ZyrTEC) Take 1 tablet daily at bedtime to prevent allergy related symptoms 30 Tablet 6 02/05/2022 Active Additional Information Patient not taking.Reported on 06/04/2023 Lactaid Fast Act 9000 UNIT Oral Tablet (Lactase) Take by mouth. 0 Acti ve Aspirin 81 MG Oral Tablet Delayed Release Take 1 Tablet by mouth in the morning. 0 07/04/2023 Active documented as of this encounter (statuses as of 07/04/2023) Active Problems Problem Noted Date Diagnosed Date Elevated blood pressure affe cting in second trimester, antepartum 07/04/2023 Overview: Elevated BP at 14w Positive test 05/08/2023 Primigravida of advanced maternal age in first t rimester 05/08/2023 Chronic intractable headache 02/05/2022 Allergic rhinitis 02/05/2022 Recurrent major depressive disorder, in partial remission 12/05/2021 Estimated Date of Delivery Comme nts Yes 01/02/2024 Based on last me nstrual period of 03/28/2023 (Exact Date), 03/28 - 03/31 was LMP documented as of this encounter (statuses as of 07/04/2023) Immunizations Name Administration Dates Next Due COVID-19 mRNA, LNP-s, No Pre serve, 2-Dose Series ([employer]) 10/01/2020,09/10/2020 DTWP - Dipth/Tet/Whole Cell Pertussis 04/02/2005 [...] Sign Reading Time Taken Comments Blood Pressure 140/90 07/04/2023 10:35 AM EDT Pulse - - Temperature - - Respiratory Rate - - Oxygen Saturation - - Inhaled Oxygen Concentration - - Weight 76.2 kg (168 lb) 07/04/2023 10:21 AM EDT Height 160 cm (5' 3") 07/04/2023 10:21 AM EDT Body Mass Index 29.76 07/04/2023 10:21 AM EDT documented in this encounter Progress Notes * Karol Beavers CRNP - 07/04/2023 10:32 AM EDT 14w BP elevated today. First elevated reading. Will obtain baseline labs, protein/creatinine urine. Return in a few days for recheck of BP. Advised to start taking baby asprin daily Still with nausea, acid reflux. Tums helping, but not completely. Recommended Prilosec. Desires Qnatal, order placed. AIDE Nick * Poppy Galvan LPN - 07/04/2023 10:23 AM EDT 14w0d Pt denies any concerns. Would like to do qnatal, would like to know gender. documented in this encounter Plan of Treatment Upcoming Encounters Date Type Department Care Team (Late st Contact Info) Description 07/08/2023 1:30 PM EST Immunization/Inje ction Gynecology/[facility]stetrics [facility] [place] [address] Gw, Nurse Obgyn Injection [address] [place] [address] 08/01/2023 9:00 AM EST Office Visit Gynecology/Obstetrics [facility] 132 [facility] [place] [address] Backer, MADELYN ShinNP 132 [facility] [place] [address] Pending Results Name Type Priority Associated Diagnoses Date /Time BUN Lab Routine Elevated blood pressure affecting in second trimester, antepartum 07/04/2023 11:11 AM EDT URIC ACID Lab Routine Elevated blood pressure affecting in second trimester, antepartum 07/04/2023 11:11 AM EDT HEPATIC FUNCTION PANEL Lab Routine Elevated blood pressure affecting in second trimester, antepartum 07/04/2023 11:11 AM EDT CREATININE Lab Routine Elevated blood pressure affecting in second trimester, antepartum 07/04/2023 11:11 AM EDT CBC Lab Routine Elevated blood pressure affecting in second trimester, antepartum 07/04/2023 11:11 AM EDT QNATAL ADVANCED (QUEST) Lab Routine Primigravida of advanced maternal age in second trimester 07/04/2023 11:11 AM EDT Scheduled Orders Name Type Priority Associated Diagnoses Orde r Schedule BUN Lab Routine Elevated blood pressure affecting in second trimester, antepartum Expected: 07/05/2023 (Approximate), Expires: 07/04/2024 URIC ACID Lab Routine Elevated blood pressure affecting in second trimester, antepartum Expected: 07/05/2023 (Approximate), Expires: 07/04/2024 HEPATIC FUNCTION PANEL Lab Routine Elevated blood pressure affecting in second trimester, antepartum Expected: 07/05/2023 (Approximate), Expires: 07/04/2024 CREATININE Lab Routine Elevated blood pressure affecting in second trimester, antepartum Expected: 07/05/2023 (Approximate), Expires: 07/04/2024 CBC Lab Routine Elevated blood pressure affecting in second trimester, antepartum Expected: 07/05/2023 (Approximate), Expires: 07/04/2024 QNATAL ADVANCED (QUEST) Lab Routine Primigravida of advanced maternal age in second trimester Expected: 07/04/2023 (Approximate), Expires: 07/04/2024 PROTEIN/ CREATININE RATIO, URINE Lab Routine Elevated blood pressure affecting in second trimester, antepartum Ordered: 07/04/2023 Health Maintenance Due Date Last Done Comments Hepatitis B (1 of 3 - 3-dose series) 1986 HPV/Co-Test 2016 Depression Screening 08/11/2021 08/11/2020 COVID-19 Vaccine ( season) 2023 08/17/2021, 10/01/2020, 09/10/2020 Influenza Vaccine (FLU shot) (#1) 2023 06/28/2021, 06/16/2020, 07/16/2016, Additional history exists Diabetes Screening 08/23/2023 08/23/2020, 1 10/24/2019, 05/15/2017, Additional history exists Cervical Cancer Screening 07/13/2024 Pap Smear 07/13/2024 07/13/2021, 10/31, 01/23/2016 DTaP,Tdap,and Td Vaccines (3 - Td or Tdap) 11/10/2028 11/10/2018, 04/02/2005, 04/02/2005 GARDASIL-HPV IMMUNIZATION SERIES Aged Out No longer [...] Comments URINALYSIS, POINT OF CARE (ENTER/EDIT) Routine 07/04/2023 Elevated blood pressure affecting in second trimester, antepartum documented in this encounter Results * URINALYSIS, POINT OF CARE (ENTER/EDIT) (07/04/2023) Color, Urine Yellow Yellow or Light Yellow Clarity, Urine Clear Clear Glucose, Urine Negative Negative mg/dL Bilirubin, Urine Negative Negative Ketone, Urine Negative Negative mg/dL Specific [place], Urine 1.025 1.003 - 1.030 Blood, Urine Trace-intact Negative pH, Urine 7.0 5.0 - 7.5 units Protein, Urine Negative Negative mg/dL Urobilinogen, Urine 0.2 0.2 - 1.0 mg/dL Nitrite, Urine Negative Negative Esterase, Urine Small Negative Urine 07/04/2023 Karol NOBLE LAB POINT OF CARE TE ST ENTER/EDIT ORDERABLES documented in this encounter Visit Diagnoses Diagnosis Primigravida of advanced maternal age in second trimester- Primary Elevated blood pressure affecting in second trimester, antepartum documented in this encounter Care Teams Plastic Straightening Roll Operator Relationship Specialty Start Date End Date Joseline Brian MD [address] [place] [address] PCP - General Internal Medicine 07/27/16 documented as of this encounter
--- OUTSIDE RECORDS SUMMARY | 2023-12-27 09:03 | External Medical Summary | Summary of Care ---
Author Name Unknown Organization [facility] Address [address] [place] [address] Phone [phone] Care Team Providers Care Order Manager Name Role Phone Joseline Brian MD Primary Care Provider + Reason for Visit * Reason Onset Date Comments Referral 08/01/2023 Encounter Details Date Type Department Care Team (Late st Contact Info) Description 08/01/2023 Telephone Internal Combustion Engine Assembler Obstetrics Maternal Medicine, [place] [address] [place], [place] [id number] [place], Nurse Internal Combustion Engine Assembler [facility] [address], [place] [id number] Referral Allergies Active Allergy Reactions Criticality Noted Date Comments Amoxicillin Rash 10/16/2016 Pollen 05/08/2023 documented as of this encounter (statuses as of 08/01/2023) Medications Medication Sig Dispensed Refills Start Date [...] as of this encounter (statuses as of 08/01/2023) Active Problems Problem Noted Date Diagnosed Date Normal 08/01/2023 Chronic hypertension in 08/01/2023 Overview: Diagnosed 18 wks. Baseline preE labs normal. Elevated blood pressure affe cting in second trimester, antepartum 07/04/2023 Overview: Elevated BP at 14w Elderly primigravida 05/08/2023 Chronic intractable headache 02/05/2022 Allergic rhinitis 02/05/2022 Recurrent major depressive disorder, in partial remission 12/05/2021 Estimated Date of Delivery Comme nts Yes 01/02/2024 Based on last me nstrual period of 03/28/2023 (Exact Date), 03/28 - 03/31 was LMP documented as of this encounter (statuses as of 08/01/2023) Resolved Problems Problem Noted Date Diagnosed Date Resolved Date Positive test 05/08/202307/05 documented as of this encounter (statuses as of 08/01/2023) Immunizations Name Administration Dates Next Due COVID-19 mRNA, LNP-s, No Pre serve, 2-Dose Series ([employer]) 10/01/2020,09/10/2020 DTWP - Dipth/Tet/Whole Cell Pertussis 04/02/2005 [...] and sent myG * Telephone Encounter - aKthia Dumas MED ASSIST - 08/01/2023 10:49 AM EST Estimated Date of Delivery: 01/02/24 Please schedule for 45 MINUTE CONSULT SIMPLE MEDICAL WITH MEDICAL SCRIBE, in time frame of within 1 week at location [facility] with the indication of CHTN. Please schedule anatomy between 19-21 weeks (08/08/23-08/22/23). Referring Provider: Priscilla Archer CRNP documented in this encounter Plan of Treatment Upcoming Encounters Date Type Department Care Team (Late st Contact Info) Description 08/15/2023 12:45 PM EST Imaging Radiology [facility] [address] [place] [address] 08/29/2023 9:00 AM EST Office Visit Gynecology/Obstetrics [facility] [address] [place] [address] Priscilla Archer CRNP 132 [facility] [place] [address] Health Maintenance Due Date Last Done Comments [...] filedocumented as of this encounter Care Teams Order Manager Relationship Specialty Start Date End Date Joseline Brian MD [address] [place] [address] PCP - General Internal Medicine 07/27/16 documented as of this encounter
--- OUTSIDE RECORDS SUMMARY | 2023-12-27 09:03 | External Medical Summary | Summary of Care ---
Author Name Unknown Organization [facility] Address [address] [place] [address] Phone [phone] Care Team Providers Care Sculpture Conservator Name Role Phone Joseline Brian MD Primary Care Provider + Reason for Visit * Reason Comments Return Visit BP check Encounter Details Date Type Department Care Team (Late st Contact Info) Description 07/08/2023 1:30 PM EST Immunization/I njection Gynecology/Obstetric s [facility] 132 [facility] [place] [address] Gw, Nurse Obgyn Injection 132 [facility] [place] [address] Elevated blood pressure affecting in second trimester, antepartum* Allergies Active Allergy Reactions Criticality Noted Date Comments Amoxicillin Rash 10/16/2016 Pollen 05/08/2023 documented as of this encounter (statuses as of 07/08/2023) Medications Medication Sig Dispensed Refills Start Date [...] as of this encounter (statuses as of 07/08/2023) Active Problems Problem Noted Date Diagnosed Date [...] as of this encounter (statuses as of 07/08/2023) Immunizations Name Administration Dates Next Due COVID-19 mRNA, LNP-s, No Pre serve, 2-Dose Series ([employer]) 10/01/2020,09/10/2020 DTWP - Dipth/Tet/Whole Cell Pertussis 04/02/2005 [...] Sign Reading Time Taken Comments Blood Pressure 140/80 07/08/2023 1:16 PM EST Pulse - - Temperature - - Respiratory Rate - - Oxygen Saturation - - Inhaled Oxygen Concentration - - Weight - - Height 160 cm (5' 3") 07/08/2023 1:16 PM EST Body Mass Index - - documented in this encounter Nursing Notes * Poppy Galvan LPN - 07/08/2023 1:16 PM EST Pt here for BP check/urine dip Manual reading 140/80. Reading w/ pt bp machine 136/92. Pt reports sinus LAROSE on Saturday night she said she gets them often from congestion. Pt denies blurry vision, RUQ pain, abnormal swelling. Reviewed ER precautions and when to call office with pt, she verbalized understanding. Spoke with Dr. Montes who was in the office today, per him she is okay to f/u at her 4 week VASU, to continue taking the baby aspirin, and to call with any of the above symptoms. documented in this encounter Plan of Treatment Upcoming Encounters Date Type Department Care Team (Late st Contact Info) Description 08/01/2023 9:00 AM EST Office Visit Gynecology/Obstetrics [address] [place] [address] Backer, Priscilla JuarezAIDE dee [address] [place] [address] Health Maintenance Due Date Last Done Comments [...] Comments URINALYSIS, POINT OF CARE (ENTER/EDIT) Routine 07/08/2023 Elevated blood pressure affecting in second trimester, antepartum documented in this encounter Results * URINALYSIS, POINT OF CARE (ENTER/EDIT) (07/08/2023) Color, Urine Yellow Yellow or Light Yellow Clarity, Urine Clear Clear Glucose, Urine Negative Negative mg/dL Bilirubin, Urine Negative Negative Ketone, Urine Negative Negative mg/dL Specific [place], Urine 1.030 1.003 - 1.030 Blood, Urine Trace-intact Negative pH, Urine 6.0 5.0 - 7.5 units Protein, Urine Negative Negative mg/dL Urobilinogen, Urine 0.2 0.2 - 1.0 mg/dL Nitrite, Urine Negative Negative Esterase, Urine Small Negative Urine 07/08/2023 Leila Saucedo MD LAB POINT OF CARE TEST ENTER/EDIT ORDERABLES documented in this encounter Visit Diagnoses Diagnosis Elevated blood pressure affecting in second trimester, antepartum- Primary documented in this encounter Care Teams Sculpture Conservator Relationship Specialty Start Date End Date Joseline Brian MD [address] [facility] [place] [address] PCP - General Internal Medicine 07/27/16 documented as of this encounter
--- OUTSIDE RECORDS SUMMARY | 2023-12-27 09:03 | External Medical Summary ---
Author Name Unknown Address Unknown Organization K01:LABORATORY [facility] - [address] [place] [address] Laboratory Report Ordering Provider Test Date Status TERIJUNIOR 07/08/2023 13:46:55 Final Normal: <150 mg/ g creatinine
High: 150-500 mg/g creatinine
Very High: >500 mg/g creatinine
Nephrotic: >3000 mg/g creatinine Observation Date Value Abnormality Reference (Units ) Status Protein/Creatinine [Ratio] in Urine 07/08/2023 13:46:55 65 <150 (mg/g ) Final Protein, Urine 07/08/2023 13:46:55 7 (mg/dL) Final Creatinine, Urine 07/08/2023 13:46:55 108 (mg/dL) Final Performing Location LABORATORY [facility] - [address] [place] [address]
--- OUTSIDE RECORDS SUMMARY | 2023-12-27 09:03 | External Medical Summary ---
Author Name Unknown Address Unknown Organization : Laboratory Report Ordering Provider Test Date Status SUHAS WHITNEY 08/01/2023 09:10:17 Final Observation Date Value Abnormality Reference (Units ) Status INTERPRETATION 08/01/2023 09:10:17 SEE BELOW Final Screen negative for open NTD RISK FOR ONTD 08/01/2023 09:10:17 1:430 Final CALC'D GESTATIONAL AGE 1108/01/2023 09:10:17 18 Final AFP, SERUM 08/01/2023 09:10:17 95.1 (ng/mL) Final AFP MOM 08/01/2023 09:10:17 2.30 Final Reference Range:
NTD <2 .50
IDD <1.90
TWINS <4.00
TWINS IDD <3.50
TRIPLETS <4.50
The AFP test result indicates that this patient is
screen negative for open NTD. It should be noted
that normal test results can never guarantee the
of a normal baby and that 2-3% of newborns
have some type of physical or mental defect, many
of which are undetectable through any known
diagnostic technique.
This is a screening test, not a diagnostic test.
This risk assessment report is based in part on
demographic data provided by the ordering
physician. Please notify the laboratory promptly
if any data are incorrect. For assistance with
recalculations, please call your local [facility] laboratory. For assistance with
interpretation of these results, please contact
your Local [facility] genetic counselor or
call [phone] ([phone]).
Interpretive Cutoffs
Screen Positive for Open NTD:
> or = 2.50 adjusted MOM
> or = 1.90 adjusted MOM for insulin-dependent diabetics
> or = 4.00 adjusted MOM for twins
> or = 3.50 adjusted MOM for twins insulin-dependent diabetics
> or = 4.50 adjusted MOM for triplets
For additional information, please refer to
http://[employer] ([employer]).Apogenix/faq/NRO82h6
(This link is being provided for
informational/educational purposes only.) DATE OF 08/01/2023 09:10:17 1985 Final COLLECTION DATE 08/01/2023 09:10:17 08/01/2023 Final MATERNAL WEIGHT 08/01/2023 09:10:17 166 (lbs ) Final EST'D DATE OF DELIVERY 08/01/2023 09:10:17 01/02/2024 Final FLORENCIO DETERMINED BY 08/01/2023 09:10:17 NOT GIVEN Final MOTHER'S ETHNIC ORIGIN 08/01/2023 09:10:17 WHITE Final NUMBER OF FETUSES 08/01/2023 09:10:17 1 Final INSULIN DEPEND DIABETIC 08/01/2023 09:10:17 NO Final REPEAT SPECIMEN 08/01/2023 09:10:17 NO Final HX OF NEURAL TUBE DEFECTS 08/01/2023 09:10:17 NO Final PREV DOWN SYND 08/01/2023 09:10:17 NO Final DONOR EGG 08/01/2023 09:10:17 NO Final DONOR AGE: EGG RETRIEVAL 08/01/2023 09:10:17 NOT GIVEN Final Test performed by [facility]
[address] [facility],
[place] [address]

Senior Devops Engineer: Ness Esteves MD,PHD,KRISTIE
Test Reported by Mari Landaverde,
[facility],
[address] [place], [place]
Bronson Onofre M.D., Ph.D., Director of Laboratories
, CLIA [id number] Performing Location
--- OUTSIDE RECORDS SUMMARY | 2023-12-27 09:03 | External Medical Summary | Summary of Care ---
Author Name Unknown Organization [facility] Address [address] [place] [address] Phone [phone] Care Team Providers Care Embedded Software Design Engineer Name Role Phone Joseline Brian MD Primary Care Provider + Reason for Visit * Reason Comments Return Visit Encounter Details Date Type Department Care Team (Late st Contact Info) Description 08/01/2023 9:00 AM EST Office Visit Gynecology/Obstetric s Nara Vasques [address] [place] [address] BackPriscilla quinn CRNP [address] [place] [address] Normal in second trimester*; Primigravida of advanced maternal age in second trimester; Elevated blood pressure affecting in second trimester, [...] Problem Noted Date Diagnosed Date Normal 08/01/2023 Elevated blood pressure affe cting in second [...] mRNA, LNP-s, No Pre serve, 2-Dose Series ([employer]) 10/01/2020,09/10/2020 DTWP - Dipth/Tet/Whole Cell Pertussis 04/02/2005 [...] Sign Reading Time Taken Comments Blood Pressure 136/80 08/01/2023 8:48 AM EST Pulse - - Temperature - - Respiratory Rate - - Oxygen Saturation - - Inhaled Oxygen Concentration - - Weight 75.8 kg (167 lb 3.2 oz) 08/01/2023 8:48 A M EST Height 160 cm (5' 3") 08/01/2023 8:48 AM EST Body Mass Index 29.62 08/01/2023 8:48 AM EST documented in this encounter Progress Notes * Priscilla Archer CRNP - 08/01/2023 8:54 AM EST 18w0d No cramping/bleeding. Not sure if feeling movement vs gas. Monitoring BP at home, readings consistent with office. Will get flu shot, just not today. Anatomy scan ordered for 20 wks. Discussed MSAFP and role in detecting ONTD; pt accepts, will get today. 4 week office visit. AIDE Beck documented in this encounter Nursing Notes * Meera Lam RN - 08/01/2023 8:48 AM EST Patient here for VASU 18w0d +nausea Pended anatomy documented in this encounter Plan of Treatment Upcoming Encounters Date Type Department Care Team (Late st Contact Info) Description 08/15/2023 12:45 PM EST Imaging Radiology [facility] 2nd Floor, [place] [address] [place] [address] 08/29/2023 9:00 AM EST Office Visit [facility]necology/[facility]stetrics [facility] [place] [address] Back[place], AIDE Shin [address] [place] [address] Pending Results Name Type Priority Associated Diagnoses Date /Time MATERNAL SERUM AFP Lab Routine Normal in second trimester 08/01/2023 9:10 AM EST Scheduled Orders Name Type Priority Associated Diagnoses Orde r Schedule US PREG SINGLE/1ST GEST, 14 WEEKS OR LATER Medical Imaging Routine Normal in second trimester Expected: 08/15/2023, Expires: 08/31/2024 MATERNAL SERUM AFP Lab Routine Normal in second trimester Expected: 08/01/2023 (Approximate), Expires: 08/01/2024 Health Maintenance Due Date Last Done Comments Hepatitis B (1 of 3 - 3-dose series) 1985 HPV/Co-Test 2016 Depression Screening 08/11/2021 08/11/2020 Influenza Vaccine (FLU shot) (#1) 2023 06/28/2021, 06/16/2020, 07/16/2016, Additional history exists Diabetes Screening 08/23/2023 08/23/2020, 1 10/24/2019, 05/15/2017, Additional history exists Cervical Cancer Screening 07/13/2024 Pap Smear 07/13/2024 07/13/2021, 0309/2018, 01/23/2016 DTaP,Tdap,and Td Vaccines (3 - Td [...] Comments URINALYSIS, POINT OF CARE (ENTER/EDIT) Routine 08/01/2023 Elevated blood pressure affecting in second trimester, antepartum Normal in second trimester documented in this encounter Results * URINALYSIS, POINT OF CARE (ENTER/EDIT) (08/01/2023) Color, Urine Yellow Yellow or Light Yellow Clarity, Urine Clear Clear Glucose, Urine Negative Negative mg/dL Bilirubin, Urine Negative Negative Ketone, Urine Negative Negative mg/dL Specific [place], Urine 1.030 1.003 - 1.030 Blood, Urine Trace-intact Negative pH, Urine 6.0 5.0 - 7.5 units Protein, Urine Trace Negative mg/dL Urobilinogen, Urine 0.2 0.2 - 1.0 mg/dL Nitrite, Urine Negative Negative Esterase, Urine Small Negative Urine 08/01/2023 Priscilla NOBLE LAB POINT O F CARE TEST ENTER/EDIT ORDERABLES documented in this encounter Visit Diagnoses Diagnosis Normal in second trimester- Primary Primigravida of advanced maternal age in second trimester Elevated blood pressure affecting in second trimester, antepartum documented in this encounter Care Teams Embedded Software Design Engineer Relationship Specialty Start Date End Date Joseline Brian MD [address] [place] [address] [place] [address] PCP - General Internal Medicine 07/27/16 documented as of this encounter
--- OUTSIDE RECORDS SUMMARY | 2023-12-27 09:03 | External Medical Summary ---
Author Name Unknown Address Unknown Organization [id number]:[facility] [address] [place] [address] Laboratory Report Ordering Provider Test Date Status JUNIOR WILLIAMSON 07/04/2023 11:11:16 Final Observation Date Value Abnormality Reference (Units ) Status Albumin 07/04/2023 11:11:16 4.2 3.8-5.0 (g/dL) Final AST (Aspartate aminotransferase) 07/04/2023 11:11:16 12 10-35 (U/L) Final Alk Phos 07/04/2023 11:11:16 73 35-130 (U/L) Final ALT (Alanine aminotransferase) 07/04/2023 11:11:16 15 10-35 (U/L) Final Bilirubin, Total 07/04/2023 11:11:16 0.2 <=1.2 (mg/dL) Final Bilirubin, Direct 07/04/2023 11:11:16 <0.2 0.0-0.3 (mg/dL) Final Protein 07/04/2023 11:11:16 6.6 6.0-8.3 (g/dL) Final Performing Location [facility] [address] [place] [address]
--- OUTSIDE RECORDS SUMMARY | 2023-12-27 09:03 | External Medical Summary | Summary of Care ---
Author Name Unknown Organization [facility] Address [address] [place] [address] Phone [phone] Care Team Providers Care Unit Operator Name Role Phone Joseline Brian MD Primary Care Provider + Reason for Visit * Reason Comments Return Visit Encounter Details Date Type Department Care Team (Late st Contact Info) Description 08/01/2023 9:00 AM EST Office Visit Gynecology/Obstetric s Nara Vasques [address] [place] [address] BackPriscilla quinn CRNP [address] [place] [address] Normal in second trimester*; Primigravida of advanced [...] mRNA, LNP-s, No Pre serve, 2-Dose Series (Geron) 10/01/2020,09/10/2020 DTWP - Dipth/Tet/Whole Cell Pertussis 04/02/2005 [...] Team (Late st Contact Info) Description 08/01/2023 9:20 AM EST Laboratory Laboratory, [facility] [place] [address] [facility] [address] [facility] [place] [address] Normal in second trimester 08/15/2023 12:45 PM EST Imaging Radiology [facility] [address] [facility] [place] [address] [place] [address] 08/29/2023 9:00 AM EST Office Visit Gynecology/Obstetric s [facility] [place] [address] [place], AIDE Shin [address] [place] [address] Pending Results Name Type Priority Associated Diagnoses [...] Negative Ketone, Urine Negative Negative mg/dL Specific [place], Urine 1.030 1.003 - 1.030 Blood, Urine [...] trimester documented in this encounter Care Teams Unit Operator Relationship Specialty Start Date End Date Joseline Brian MD [address] [place] [address] PCP - General Internal Medicine 07/27/16 documented as of this encounter
--- OUTSIDE RECORDS SUMMARY | 2023-12-27 09:03 | External Medical Summary | Summary of Care ---
Author Name Unknown Organization [facility] Address [address] [place] [address] Phone [phone] Care Team Providers Care Electroplating Sales Representative Name Role Phone Joseline Brian MD Primary Care Provider + Reason for Visit * Reason Comments Outpatient Testing Encounter Details Date Type Department Care Team (Late st Contact Info) Description 07/04/2023 11:10 AM EDT Laboratory Laboratory, [facility] [address] [place] [address] [facility] [address] [place] [address] Elevated blood pressure affecting in second trimester, antepartum; Primigravida of advanced maternal age in second trimester Allergies Active Allergy Reactions [...] mRNA, LNP-s, No Pre serve, 2-Dose Series ([employer]) 10/01/2020,09/10/2020 DTWP - Dipth/Tet/Whole Cell Pertussis 04/02/2005 [...] 07/08/2023 1:30 PM EST Immunization/Inje ction Gynecology/Obstetrics [facility] [address] [place] [address] Gw, Nurse Obgyn Injection [address] [place] [address] 08/01/2023 9:00 AM EST Office Visit Gynecology/Obstetrics [facility] [address] [place] [address] BackerPriscilla CRNP [address] [place] [address] Pending Results Name Type Priority Associated Diagnoses [...] in second trimester 07/04/2023 11:11 AM EDT Health Maintenance Due Date Last [...] as of this encounter Visit Diagnoses Diagnosis Elevated blood pressure affecting in second trimester, antepartum Primigravida of advanced maternal age in second trimester documented in this encounter Care Teams Electroplating Sales Representative Relationship Specialty Start Date End Date Joseline Brian MD [address] [place] [address] PCP - General Internal Medicine 07/27/16 documented as of this encounter
--- OUTSIDE RECORDS SUMMARY | 2023-12-27 09:03 | External Medical Summary | Summary of Care ---
Author Name Unknown Organization [facility] Address [address] [place] [address] Phone [phone] Care Team Providers Care Bankruptcy Judge Name Role Phone Joseline Brian MD Primary Care Provider + Reason for Visit * Reason Comments Outpatient Testing Encounter Details Date Type Department Care Team (Late st Contact Info) Description 08/01/2023 9:20 AM EST Laboratory Laboratory, [facility] [address] [place] [phone] [facility] [address] [place] [address] Normal in second trimester Allergies Active Allergy Reactions [...] mRNA, LNP-s, No Pre serve, 2-Dose Series ([employer]) 10/01/2020,09/10/2020 DTWP - Dipth/Tet/Whole Cell Pertussis 04/02/2005 [...] Description 08/15/2023 12:45 PM EST Imaging Radiology [facility] 2nd [facility] [address] [place] [address] 08/29/2023 9:00 AM EST Office Visit Gynecology/Obstetrics [facility] [address] [place] [address] [place], AIDE Shin [address] [facility] [place] [address] Pending Results Name Type Priority Associated Diagnoses Date /Time MATERNAL SERUM AFP Lab Routine Normal in second trimester 08/01/2023 9:10 AM EST Health Maintenance Due Date Last [...] as of this encounter Visit Diagnoses Diagnosis Normal in second trimester documented in this encounter Care Teams Bankruptcy Judge Relationship Specialty Start Date End Date Joseline Brian MD [address] [facility] [place], [place] [address] PCP - General Internal Medicine 07/27/16 documented as of this encounter
--- OUTSIDE RECORDS SUMMARY | 2023-12-27 09:04 | External Medical Summary | Summary of Care ---
Author Name Unknown Organization [facility] Address [address] [place] [address] Phone [phone] Care Team Providers Care Cutter Out Name Role Phone Joseline Brian MD Primary Care Provider + Encounter Details Date Type Department Care Team (Late st Contact Info) Description 07/01/2023 Telephone Gynecology/Obstetrics [facility] [address] [place] [address] Roxanna Scruggs MD [address] [facility] [place] [address] Allergies Active Allergy Reactions Criticality Noted Date Comments Amoxicillin Rash 10/16/2016 Pollen 05/08/2023 documented as of this encounter (statuses as of 07/01/2023) Medications Medication Sig Dispensed Refills Start Date [...] (Lactase) Take by mouth. 0 Acti ve documented as of this encounter (statuses as of 07/01/2023) Active Problems Problem Noted Date Diagnosed Date Positive test 05/08/2023 Primigravida of advanced maternal age in first t rimester 05/08/2023 Chronic intractable headache 02/05/2022 Allergic rhinitis 02/05/2022 Recurrent major depressive disorder, in partial remission 12/05/2021 Estimated Date of Delivery Comme nts Yes 01/02/2024 Based on last me nstrual period of 03/28/2023 (Exact Date), 03/28 - 03/31 was LMP documented as of this encounter (statuses as of 07/01/2023) Immunizations Name Administration Dates Next Due COVID-19 mRNA, LNP-s, No Pre serve, 2-Dose Series (ASSET[employer]) 10/01/2020,09/10/2020 DTWP - Dipth/Tet/Whole Cell Pertussis 04/02/2005 [...] encounter Miscellaneous Notes * Telephone Encounter - Tanya Cm LPN - 07/01/2023 1:25 PM EDT Kaylene with [employer] calling requesting CPT code and Dx code for Qnatal testing. Codes provided as requested. documented in this encounter Plan of Treatment Upcoming Encounters Date Type Department Care Team (Late st Contact Info) Description 07/04/2023 10:30 AM EDT Office Visit Gynecology/Obstetrics O[facility]zc[facility]o Vasques [address] [place] [address] Karol Beavers CRNP [address] [place] [address] Health Maintenance Due Date Last Done Comments Hepatitis B (1 of 3 - 3-dose series) 1985 HPV/Co-Test 2016 Depression Screening 08/11/2021 08/11/2020 COVID-19 Vaccine ( season) 2023 08/17/2021, 10/01/2020, 09/10/2020 Influenza Vaccine (FLU shot) (#1) 2023 06/28/2021, 06/16/2020, 07/16/2016, Additional history exists Diabetes Screening 08/23/2023 08/23/2020, 1 10/24/2019, 05/15/2017, Additional history exists Cervical Cancer Screening 07/13/2024 Pap Smear 07/13/2024 07/13/2021, 03/09/2018, 01/23/2016 DTaP,Tdap,and Td Vaccines (3 - Td [...] filedocumented as of this encounter Care Teams Cutter Out Relationship Specialty Start Date End Date Joseline Brian MD [address] [place] [address], [place] [address] PCP - General Internal Medicine 07/27/16 documented as of this encounter
--- OUTSIDE RECORDS SUMMARY | 2023-12-27 09:04 | External Medical Summary ---
Author Name Unknown Address Unknown Organization K0[facility] [address] [place] [address] Laboratory Report Ordering Provider Test Date Status JUNIOR WILLIAMSON 07/04/2023 11:11:16 Final Observation Date Value Abnormality Reference (Units ) Status Creatinine 07/04/2023 11:11:16 0.6 0.5-1.0 (mg/dL) Final Glomerular filtration rate/1.73 sq M.predicted [Volume Rate/Area] in Serum, Plasma or Blood by Creatinine-based formula (CKD-EPI) 07/04/2023 11:11:16 >90 >=60 (mL/min) Final eGFR is calculated based on the CKD-EPI 2020 equation Performing Location [facility] [address] [place] [address]
--- OUTSIDE RECORDS SUMMARY | 2023-12-27 09:04 | External Medical Summary ---
Author Name Unknown Address Unknown Organization : Laboratory Report Ordering Provider Test Date Status JUNIOR WILLIAMSON 07/04/2023 11:11:16 Final Observation Date Value Abnormality Reference (Units ) Status NUMBER OF FETUSES? 07/04/2023 11:11:16 1 Final ADVANCED MATERNAL AGE? 07/04/2023 11:11:16 YES Final ABNORMAL DASH? 07/04/2023 11:11:16 NO Final ABNORMAL US? 07/04/2023 11:11:16 NOT GIVEN Final PERSONAL/FAM HISTORY? 07/04/2023 11:11:16 NOT GIVEN Final INTERPRETATION 07/04/2023 11:11:16 SEE BELOW Final This specimen showed an expe cted representation of
chromosome 21, 18, and 13 material. Results were
not analyzed or reported for microdeletions. See
'Limitations' below. TRISOMY 21 (T21) 07/04/2023 11:11:16 Negative Final TRISOMY 18 (T18) 07/04/2023 11:11:16 Negative Final TRISOMY 13 (T13) 07/04/2023 11:11:16 Negative Final Y CHROMOSOME 07/04/2023 11:11:16 Detected Final Y CHR. INTERPRETATION 07/04/2023 11:11:16 SEE BELOW Final Consistent with a male fetus . SEX CHROMOSOME 07/04/2023 11:11:16 No aneuploidy Final SEX CHROMOSOME INTERP 07/04/2023 11:11:16 SEE BELOW Final No apparent abnormality was detected. See
'Limitations' below. MICRODELETION 07/04/2023 11:11:16 Opted Out Final MICRODELETION INTERP 07/04/2023 11:11:16 SEE BELOW Final Results were not analyzed or reported for
microdeletions. GESTATIONAL AGE (IN WEEKS) 07/04/2023 11:11:16 14 Final GESTATIONAL AGE (IN DAYS) 07/04/2023 11:11:16 0 Final FRACTION 07/04/2023 11:11:16 12.90% Final LABORATORY COMMENTS 07/04/2023 11:11:16 SEE BELOW Final Laboratory testing supervise d and results
monitored by Trice Hutchins, Ph.D., [facility],
[facility]. LIMITATIONS 07/04/2023 11:11:16 SEE BELOW Final QNatal(R) Advanced is a cell -free DNA test that
screens for increased risk of certain
chromosomal abnormalities that may cause
defects, including Trisomy 21 (Down syndrome),
Trisomy 18, Trisomy 13, and certain sex chromosome
abnormalities (i.e., 45,X, 47,XXY, 47,XXX, and
47,XYY), as well as sex. In addition, if
selected as an option, QNatal(R) Advanced can
screen for certain microdeletions (i.e., 22q, 5p,
1p36, 15q, 11q, 8q, and 4p) that may cause
defects. This test does not assess the risk of
abnormalities such as neural tube defects or
ventral wall defects and should not be considered
in isolation from other clinical findings and
laboratory test results.
QNatal(R) Advanced has been validated in miles
pregnancies for the trisomies and sex chromosome
abnormalities listed above, as well as for
microdeletions, and for the determination of
sex. Sex chromosome aneuploidy analysis is only
performed in miles pregnancies. The test has
also been validated in twin pregnancies for the
trisomies listed above and for microdeletions, but
not for the sex chromosome abnormalities due to
limited data. The test has not been validated in
higher order pregnancies (more than two) because
limited data is available.
Microdeletion screening is limited to the
specified microdeletion regions (see
'Methodology'). The Y chromosome is analyzed for
the determination of sex. The sensitivity
and specificity of sex determination
analysis may be less than that of the Trisomy 21,
18, and 13 analysis and this determination can be
confounded by vanishing twin syndrome in
pregnancies that were originally multiple
gestation pregnancies. It should be noted that
QNatal(R) Advanced is a quantitative analysis of
maternal and placental cfDNA. As a result, the
accuracy of the screening test results may be
affected by the presence of chromosome
abnormalities or microdeletions that are maternal
or confined placental in origin. False positive
findings involving the examined chromosomes and
microdeletion regions may be due to maternal,
placental, or mosaicism, by vanishing twin
syndrome, or other unexplained causes. SPECIFICATIONS 07/04/2023 11:11:16 SEE BELOW Final Sensitivity Specificity
T21 >99.9% >99.9%
T18 >99.9% >99.9%
T13 >99.9% >99.9%
Accuracy
Y >99.9%
Performance of the QNatal Advanced
laboratory-developed test (LDT) has been
determined based on internal analytical
assessment. METHODOLOGY 07/04/2023 11:11:16 SEE BELOW Final Circulating cell-free (cf) D NA was isolated from
plasma followed by detection on a massively
parallel sequencing platform. Bioinformatic
analysis was performed to determine the
representation of chromosomes 21, 18, 13, X and Y
in circulating cell-free DNA. The representation
of sequences from the critical regions involved in
1p36 microdeletion syndrome (1p36),
Anna-Hirschhorn syndrome (4p), Cri-du-chat
syndrome (5p), Daniel-Giedion syndrome (8p),
Kassandra syndrome (11q), Prader Willi
syndrome/Angelman syndrome (15q), and DiGeorge
syndrome (22q) is evaluated for the detection of
microdeletions if requested. This test was
developed, and its performance characteristics
have been determined by [facility] [employer]
[facility]. It has not been
cleared or approved by the U.S. Food and Drug
Administration. Performance characteristics refer
to the analytical performance of the test. This
test is performed pursuant to a license agreement
with [facility].
This test was developed and its analytical
performance characteristics have been determined
by [facility]. It has not been cleared or
approved by FDA. This assay has been validated
pursuant to the CLIA regulations and is used for
clinical purposes.
Test performed by [facility]
[address],
[place] [address]

Fabrication Specialist: Ness Esteves MD,PHD,KRISTIE
Test Reported by [employer],
[facility],
[address] [place], [place]
Bronson Onofre M.D., Ph.D., Director of Laboratories
[phone], CLIA [id number] Performing Location
--- OUTSIDE RECORDS SUMMARY | 2023-12-27 09:04 | External Medical Summary ---
Author Name Unknown Address Unknown Organization [facility] [address] [place] [address] Laboratory Report Ordering Provider Test Date Status JUNIOR WILLIAMSON 07/04/2023 11:11:16 Final Observation Date Value Abnormality Reference (Units ) Status BUN 07/04/2023 11:11:16 5 Below low normal 6-2 0 (mg/dL) Final Performing Location [facility] [place] [address]
--- OUTSIDE RECORDS SUMMARY | 2023-12-27 09:04 | External Medical Summary ---
Author Name Unknown Address Unknown Organization [id number]:[place] [place] [address] [place] [id number] Laboratory Report Ordering Provider Test Date Status JOSE A WILLIAMSONUSMAN 07/04/2023 11:11:16 Final Observation Date Value Abnormality Reference (Units ) Status Uric Acid 07/04/2023 11:11:16 4.4 2.4-5.7 (m g/dL) Final Performing Location LABORATORY [facility] - [address] [place] [id number]
--- OUTSIDE RECORDS SUMMARY | 2023-12-27 09:04 | External Medical Summary ---
Author Name Unknown Address Unknown Organization [id number]:[facility]ATORY [facility] [address] [place] [id number] Laboratory Report Ordering Provider Test Date Status JUNIOR WILLIAMSON 07/04/2023 11:11:16 Final Observation Date Value Abnormality Reference (Units ) Status WBC, Total 07/04/2023 11:11:16 12.65 Above high normal 4 .00-10.80 (K/uL) Final RBC 07/04/2023 11:11:16 4.08 3.85-5.15 (M/uL) Final Hemoglobin 07/04/2023 11:11:16 12.9 12.0-15.3 (g/dL) Final HCT 07/04/2023 11:11:16 38.5 36.0-45.2 (%) Final MCV 07/04/2023 11:11:16 94.4 81.5-97.5 (fL) Final MCH 07/04/2023 11:11:16 31.6 27.0-34.0 (pg) Final MCHC 07/04/2023 11:11:16 33.5 32.0-36.0 (g/dL) Final RDW 07/04/2023 11:11:16 12.9 11.5-15.5 (%) Final Platelets 07/04/2023 11:11:16 294 140-400 (K /uL) Final MPV 07/04/2023 11:11:16 10.8 6.6-11.1 ( fL) Final Performing Location LAB[facility]ATORY [facility] [place] [address] [place] [id number]
[2023-12-27] MEDS: OXYTOCIN 30 UNITS/NSS 30 UNITS/500 ML BAG IV PRN (10:02)
--- NOTE | 2023-12-27 12:32 | Anesthesiology Consultation ---
Date of Service December 27, 2023 Assessment & Plan Chart Review Chart Review: Acceptable Risk for Labor Epidural Consults Requested none History Height/Weight Height: 5 ft 2 in Weight: 88.9 kg Allergies Allergy/AdvReac Type Severity Reaction Status Date / Time amoxicillin Allergy Intermediate Rash Verified 10/25/22 10:08 lactose AdvReac Verified 12/27/23 08:45 seasonal allergies Allergy Mild Congested Uncoded 10/25/22 10:08 Medications Home Medications Medication Instructions Recorded Confirmed Last Taken sertraline 25 mg tablet 25 mg PO PM 12/30/20 12/26/23 12/29/20 aspirin 81 mg tablet,delayed 81 mg PO DAILY 12/26/23 12/26/23 12/25/23 12:00 release cholecalciferol (vitamin D3) 25 25 mcg PO DAILY 12/26/23 12/26/23 Unknown mcg (1,000 unit) capsule (Vitamin D3) labetalol 200 mg tablet 200 mg PO BID 12/26/23 12/26/23 12/26/23 09:00 vit no.95-ferrous tab PO 12/26/23 12/25/23 18:00 fumarate 28 mg-folic acid 800 mcg tablet () Active Medications Generic Name Dose Route Start Last Admin Trade Name Freq PRN Reason Stop Dose Admin Lactated Ringer's 1,000 mls @ 125 mls/hr 12/26/23 11:13 12/27/23 10:08 Lr IV 12/28/23 11:12 125 mls/hr .Q8H PRN Administration L&D Protocol Protocol Oxytocin 30 units in 500 mls @ 8 mls/hr 12/27/23 06:15 12/27/23 12:21 Pitocin 30 Units/Nss IV 12/29/23 06:14 0.48 units/hr .Q24H PRN 8 mls/hr Labor Induction/Augmentation Titration Protocol 0.48 UNITS/HR Labetalol HCl 200 mg 12/26/23 21:00 12/27/23 08:57 Labetalol Hcl 200 Mg Tab PO 01/25/24 20:59 200 mg BID SAMANTHA Administration Misoprostol 50 mcg 12/26/23 12:30 12/27/23 01:12 Misoprostol 50 Mcg Tab PO 01/25/24 12:29 50 mcg Q4H SAMANTHA Administration Sertraline HCl 25 mg 12/26/23 21:00 12/26/23 20:45 Sertraline Hcl 50 Mg Tablet PO 01/25/24 20:59 Not Given PM SAMANTHA Past Medical History Medical History (Updated 12/26/23 @ 14:43 by Katharine Bonilla MD, PhD) Chronic hypertension during , antepartum Migraines Past Family History Family History Grandmother (Maternal) Breast cancer Family/Other Breast cancer Denies family history of Ovarian cancer Prostate cancer Myocardial infarction Colorectal cancer Social History Smoking Status: Never smoker Hx Alcohol Use: No Hx Substance Use: No Physical Exam Vital Signs Last Vital Signs Temp 37.0 C 12/27/23 12:00 Pulse 98 H 12/27/23 11:59 Resp 18 12/27/23 06:07 BP 145/74 H 12/27/23 11:59 Testing Laboratory Results 12/27/23 05:31 12/27/23 05:31 Blood Type A Positive 12/26/23 11:38 Antibody Screen NEGATIVE 12/26/23 11:38
[2023-12-27] MEDS ORDERED: NALBUPHINE HCL 5 MG in SYRINGE 0 ML IV PRN (12:33)
[2023-12-27] MEDS ORDERED: ROPIVACAINE 0.5% PF 5 MG/ML 20 ML VIAL EPI PRN (12:33)
[2023-12-27] MEDS ORDERED: SODIUM CHLORIDE 0.9% PF INJ 10 ML VIAL EPI PRN (12:33)
[2023-12-27] MEDS ORDERED: fentaNYL citrate PF 100 MCG/2 ML VIAL EPI PRN (12:33)
[2023-12-27] MEDS ORDERED: BUPIVACAINE 0.25% PF 30 ML VIAL EPI PRN (12:33)
[2023-12-27] MEDS ORDERED: ePHEDrine sulfate 50 MG/ML AMP IV PRN (12:33)
[2023-12-27] MEDS ORDERED: NALOXONE HCL 0.4 MG/1 ML VIAL/CARP IV PRN (12:33)
[2023-12-27] MEDS ORDERED: diphenhydrAMINE 50 MG/ML VIAL IV PRN (12:33)
[2023-12-27] MEDS ORDERED: LIDOCAINE 2% MPF LOCAL 5 ML VIAL EPI PRN (12:33)
[2023-12-27] MEDS ORDERED: NALOXONE HCL 1 MG in SODIUM CHLORIDE 0.9% 1,000 ML IV PRN (12:33)
[2023-12-27] MEDS: fentANYL 2 MCG/ML BUPIVacaine 0.125%-NSS 100ML BAG ONE (12:52)
[2023-12-27] MEDS: LIDOCAINE 2%/EPINEPHRINE 1:200,000 20 ML PF EPI STA (13:35)
[2023-12-27] MEDS: fentaNYL citrate PF 100 MCG/2 ML VIAL ONE (13:36)
[2023-12-27] MEDS: BUPIVACAINE 0.25% PF 30 ML VIAL ONE (13:37)
[2023-12-27] MEDS: LIDOCAINE 2%/EPINEPHRINE 1:200,000 20 ML PF ONE (13:37)
[2023-12-27] MEDS: ePHEDrine sulfate 50 MG/ML AMP ONE (13:37)
[2023-12-27] MEDS: BUPIVACAINE 0.25% PF 30 ML VIAL EPI STA (13:40)
[2023-12-27] MEDS: fentaNYL citrate PF 100 MCG/2 ML VIAL EPI STA (13:40)
[2023-12-27] MEDS: SODIUM CHLORIDE 0.9% PF INJ 10 ML VIAL ONE (13:40)
[2023-12-27] MEDS: SODIUM CHLORIDE 0.9% PF INJ 10 ML VIAL EPI STA (13:41)
[2023-12-27] MEDS: fentANYL 2 MCG/ML BUPIVacaine 0.125%-NSS 100ML BAG EPI PRN (20:34)
[2023-12-27] MEDS ORDERED: Nursing to Pharmacy Communication SCH (23:00)
--- NOTE | 2023-12-28 02:50 | Delivery Summary ---
Vaginal Delivery Summary Date of Service December 28, 2023 Vaginal Delivery Summary live male JAREN over intact perineum with nuchal cord x1 reduced at delivery with delayed cord clamping for 30 sec. and pending Apgars and weight. Cord blood obtained followwed by spontaneous delivery of intact placenta. First degree tear repaired with 3/0 Vicryl suture. Final sponge, needle and instrument count are correct. QBL pending. Mom and baby stable.
[2023-12-28] MEDS ORDERED: OXYTOCIN 30 UNITS/NSS 30 UNITS/500 ML BAG IV PRN (02:55)
[2023-12-28] MEDS ORDERED: HYDROCORTISONE ACETATE 25 MG SUPP PR PRN (02:55)
[2023-12-28] MEDS: DIPHTHER/TETAN/PERTUS Vaccine (Tdap, Adol/Adult) 0.5mL IM ONE (04:40)
[2023-12-28] MEDS: ACETAMINOPHEN 325 MG TAB PO PRN (05:12)
[2023-12-28] MEDS: BENZOCAINE 20% SPRY 85 APPLN/85 GM CAN EXT PRN (05:14)
[2023-12-28 07:49] LABS: Hematocrit (blood only) 31.9 % (37.0-47.0); Hemoglobin 10.8 g/dl (12.0-16.0); Mean Corpuscular Hemoglobin 31.8 pg (25.0-34.0); Mean Corpuscular Hgb Conc 33.9 g/dL (32.0-36.0); Mean Corpuscular Volume 93.8 fL (80.0-100.0); Mean Platelet Volume 11.6 fL (9.4-12.4); Platelet Count 222 K/uL (130-400); RDW Coefficient of Variation 13.6 % (11.5-14.5); RDW Standard Deviation 46.5 fL (36.4-46.3)
[2023-12-28 07:57] LABS: Albumin Globulin Ratio 1.2 (0.9-2); Albumin Level 2.9 gm/dl (3.4-5.0); BUN Creatinine Ratio 19.1 (10-20); Bilirubin,Total 0.4 mg/dl (0.2-1.0); Calcium 8.5 mg/dl (8.6-10.3); Creatinine Clr Calc Pharmacy 117.3 ml/min; Est GFR (African American) 129.5 ml/min; Est GFR (Non-African American) 111.7 ml/min; Globulin 2.4 gm/dl (2.5-4.0); Potassium 3.4 mmol/L (3.5-5.1); Total Protein 5.3 gm/dl (6.0-8.3)
--- NOTE | 2023-12-28 08:10 | Anesthesia Procedure Note ---
Date of Service December 28, 2023 Anesthesia Post Epidural Note Vital Signs Vital Signs: Temp Pulse Resp BP Pulse Ox O2 Del Method 36.6 C 120 H 16 125/89 98 Room Air 12/28/23 05:30 12/28/23 06:05 12/28/23 05:30 12/28/23 05:30 12/28/23 03:27 12/28/23 05:30 Pain Intensity Lower Abdomen: Pain Intensity: 3 Perineal: Pain Intensity: 2 Notes Mental Status: alert / awake / arousable and participated in evaluation Nausea / Vomiting: adequately controlled Pain: adequately controlled Airway Patency, RR, SpO2: stable & adequate BP & HR: stable & adequate Hydration State: stable & adequate Neuraxial Anesthesia: was administered and sensory block is resolving Anesthetic Complications: no major complications apparent Epidural: Removed without complications and With tip intact
[2023-12-28 08:27] LABS: Basophils # (auto) 0.04 K/uL (0.00-0.20); Basophils % (auto) 0.2 %; Eosinophils # (auto) 0.02 K/uL (0.00-0.50); Eosinophils % (auto) 0.1 %; Immature Granulocytes # (auto) 0.18 K/uL (0.01-0.20); Immature Granulocytes % (auto) 0.9 %; Lymphocytes % (auto) 3.9 %; Monocytes # (auto) 0.85 K/uL (0.11-0.59); Monocytes % (auto) 4.2 %; Neutrophils # (auto) 18.41 K/uL (1.40-6.50); Neutrophils % (auto) 90.7 %
[2023-12-28] MEDS: FERROUS SULFATE 325 MG TAB PO SCH (08:59)
[2023-12-28] MEDS: DOCUSATE SODIUM 100 MG CAP PO SCH (08:59)
[2023-12-28] MEDS: PRENATAL VITAMIN 1 TAB PO SCH (08:59)
[2023-12-28] MEDS: CHOLECALCIFEROL 25 MCG (1000 UNITS) TAB PO SCH (09:00)
[2023-12-28] MEDS: IBUPROFEN 600 MG TAB PO PRN (18:25)
[2023-12-29 07:19] LABS: Basophils # (auto) 0.05 K/uL (0.00-0.20); Basophils % (auto) 0.3 %; Eosinophils # (auto) 0.34 K/uL (0.00-0.50); Eosinophils % (auto) 2.3 %; Hematocrit (blood only) 29.7 % (37.0-47.0); Hemoglobin 9.8 g/dl (12.0-16.0); Immature Granulocytes % (auto) 1.4 %; Lymphocytes # (auto) 2.57 K/uL (1.20-3.40); Lymphocytes % (auto) 17.4 %; Mean Corpuscular Hemoglobin 31.7 pg (25.0-34.0); Mean Corpuscular Volume 96.1 fL (80.0-100.0); Mean Platelet Volume 11.5 fL (9.4-12.4); Monocytes # (auto) 0.88 K/uL (0.11-0.59); Monocytes % (auto) 5.9 %; Neutrophils # (auto) 10.75 K/uL (1.40-6.50); Neutrophils % (auto) 72.7 %; Platelet Count 217 K/uL (130-400); RDW Coefficient of Variation 13.8 % (11.5-14.5); RDW Standard Deviation 48.2 fL (36.4-46.3); Red Blood Count 3.09 M/uL (4.20-5.40); White Blood Count 14.79 K/ul (4.8-10.8)
[2023-12-29 07:44] LABS: Albumin Globulin Ratio 1.2 (0.9-2); BUN Creatinine Ratio 20.6 (10-20); Bilirubin,Total 0.2 mg/dl (0.2-1.0); Calcium 8.3 mg/dl (8.6-10.3); Creatinine Clr Calc Pharmacy 126.7 ml/min; Est GFR (African American) 132.8 ml/min; Est GFR (Non-African American) 114.6 ml/min; Globulin 2.5 gm/dl (2.5-4.0); Potassium 3.8 mmol/L (3.5-5.1); Total Protein 5.5 gm/dl (6.0-8.3)
--- NOTE | 2023-12-29 08:19 | Obstetrical Progress Note ---
Date of Service December 29, 2023 Assessment & Plan (1) Normal course: Continue routine care Anticipate discharge home tomorrow if doing well (2) Anemia, : H&H this morning 9.8/29.7% Will place order for IV Venofer, as patient still has IV (3) Chronic hypertension with superimposed preeclampsia: Continue labetalol 200 mg twice daily Last blood pressure was 126/86. Stable Subjective Ambulation: ambulating normally Voiding: no voiding problems Passing Gas:: Yes Diet Tolerance:: regular diet Lochia:: Small Feeding Type:: breast feeding Current Pain Level(1-10): 3 Patient is currently breast-feeding, pumping and supplementing with formula States she feels much better since yesterday. Pain is well-controlled on p.o. medication Bonding well with baby in the room, no other complaint Physical Exam Constitutional WD/WN, vitals as above Respiratory normal respiratory effort, lungs clear to auscultation Cardiovascular RRR, no murmur, no edema Gastrointestinal (Abdomen) normal bowel sounds, soft, nontender, no hepatosplenomegaly Fundus below umbilicus Results & Data Vital Signs (Past 12 Hours) Vital Signs Temp Pulse Resp BP Pulse Ox O2 Del Method 12/29/23 07:45 36.4 C L 98 H 20 126/86 97 Room Air 12/29/23 00:55 36.4 C L 97 H 18 122/79 Laboratory Results Laboratory Results WBC 14.79 K/ul (4.8-10.8) H 12/29/23 06:51 RBC 3.09 M/uL (4.20-5.40) L 12/29/23 06:51 Hgb 9.8 g/dl (12.0-16.0) L 12/29/23 06:51 Hct 29.7 % (37.0-47.0) L 12/29/23 06:51 MCV 96.1 fL (80.0-100.0) 12/29/23 06:51 MCH 31.7 pg (25.0-34.0) 12/29/23 06:51 MCHC 33.0 g/dL (32.0-36.0) 12/29/23 06:51 RDW Std Deviation 48.2 fL (36.4-46.3) H 12/29/23 06:51 RDW Coeff of Sai 13.8 % (11.5-14.5) 12/29/23 06:51 Plt Count 217 K/uL (130-400) 12/29/23 06:51 MPV 11.5 fL (9.4-12.4) 12/29/23 06:51 Immature Gran % (Auto) 1.4 % 12/29/23 06:51 Neut % (Auto) 72.7 % 12/29/23 06:51 Lymph % (Auto) 17.4 % 12/29/23 06:51 Bremer % (Auto) 5.9 % 12/29/23 06:51 Eos % (Auto) 2.3 % 12/29/23 06:51 Baso % (Auto) 0.3 % 12/29/23 06:51 Neut # (Auto) 10.75 K/uL (1.40-6.50) H 12/29/23 06:51 Lymph # (Auto) 2.57 K/uL (1.20-3.40) 12/29/23 06:51 Bremer # (Auto) 0.88 K/uL (0.11-0.59) H 12/29/23 06:51 Eos # (Auto) 0.34 K/uL (0.00-0.50) 12/29/23 06:51 Baso # (Auto) 0.05 K/uL (0.00-0.20) 12/29/23 06:51 Immature Gran # (Auto) 0.20 K/uL (0.01-0.20) 12/29/23 06:51 Sodium 138 mmol/L (136-145) 12/29/23 06:51 Potassium 3.8 mmol/L (3.5-5.1) 12/29/23 06:51 Chloride 109 mmol/L (98-107) H 12/29/23 06:51 Carbon Dioxide 22 mmol/L (21-32) 12/29/23 06:51 Anion Gap 7 (3-11) 12/29/23 06:51 BUN 13 mg/dl (6-23) 12/29/23 06:51 Creatinine 0.63 mg/dl (0.6-1.2) 12/29/23 06:51 Est Cr Clr Drug Dosing 126.7 ml/min 12/29/23 06:51 Est GFR ( Amer) 132.8 ml/min 12/29/23 06:51 Est GFR (Non-Af Amer) 114.6 ml/min 12/29/23 06:51 BUN/Creatinine Ratio 20.6 (10-20) H 12/29/23 06:51 Glucose 78 mg/dl (70-99(Fasting)) 12/29/23 06:51 Calcium 8.3 mg/dl (8.6-10.3) L 12/29/23 06:51 Total Bilirubin 0.2 mg/dl (0.2-1.0) 12/29/23 06:51 AST 40 U/L (13-39) H 12/29/23 06:51 ALT 24 U/L (7-52) 12/29/23 06:51 Alkaline Phosphatase 121 U/L (34-104) H 12/29/23 06:51 Total Protein 5.5 gm/dl (6.0-8.3) L 12/29/23 06:51 Albumin 3.0 gm/dl (3.4-5.0) L 12/29/23 06:51 Globulin 2.5 gm/dl (2.5-4.0) 12/29/23 06:51 Albumin/Globulin Ratio 1.2 (0.9-2) 12/29/23 06:51 Ur Random Creatinine 39.9 mg/dl 12/26/23 11:30 U Random Total Protein 16.3 mg/dl (0-11.9) H 12/26/23 11:30 Protein/Creatinin Ratio 0.4 (0-0.2) H 12/26/23 11:30 RPR Nonreactive (Nonreactive) 12/26/23 11:38 Blood Type A Positive 12/26/23 11:38 Antibody Screen NEGATIVE 12/26/23 11:38
[2023-12-29] MEDS: IRON SUCROSE 300 MG in SODIUM CHLORIDE 0.9% 250 ML IV ONE (08:56)
[2023-12-29] MEDS: bisacodyL 5 MG TABEC PO SCH (20:52)
[2023-12-30] MEDS ORDERED: bisacodyL 10 MG SUPP PR PRN (02:55)
[2023-12-30 06:31] LABS: Basophils # (auto) 0.05 K/uL (0.00-0.20); Basophils % (auto) 0.4 %; Eosinophils # (auto) 0.34 K/uL (0.00-0.50); Eosinophils % (auto) 2.7 %; Hematocrit (blood only) 31.1 % (37.0-47.0); Hemoglobin 10.2 g/dl (12.0-16.0); Immature Granulocytes # (auto) 0.24 K/uL (0.01-0.20); Immature Granulocytes % (auto) 1.9 %; Lymphocytes # (auto) 2.08 K/uL (1.20-3.40); Lymphocytes % (auto) 16.8 %; Mean Corpuscular Hemoglobin 31.6 pg (25.0-34.0); Mean Corpuscular Hgb Conc 32.8 g/dL (32.0-36.0); Mean Corpuscular Volume 96.3 fL (80.0-100.0); Mean Platelet Volume 11.2 fL (9.4-12.4); Monocytes # (auto) 0.74 K/uL (0.11-0.59); Neutrophils # (auto) 8.94 K/uL (1.40-6.50); Neutrophils % (auto) 72.2 %; Platelet Count 226 K/uL (130-400); RDW Coefficient of Variation 13.6 % (11.5-14.5); RDW Standard Deviation 48.4 fL (36.4-46.3); Red Blood Count 3.23 M/uL (4.20-5.40); White Blood Count 12.39 K/ul (4.8-10.8)
[2023-12-30 06:50] LABS: Albumin Globulin Ratio 1.3 (0.9-2); Albumin Level 3.4 gm/dl (3.4-5.0); BUN Creatinine Ratio 17.4 (10-20); Bilirubin,Total 0.2 mg/dl (0.2-1.0); Calcium 8.5 mg/dl (8.6-10.3); Creatinine Clr Calc Pharmacy 115.6 ml/min; Est GFR (African American) 128.9 ml/min; Est GFR (Non-African American) 111.2 ml/min; Globulin 2.7 gm/dl (2.5-4.0); Potassium 4.3 mmol/L (3.5-5.1); Total Protein 6.1 gm/dl (6.0-8.3)
== END 2023-12-30 13:35 | disposition home or self-care (01) | DRG 807 ==
LOC: 4S1 10:58 → 4E2 12-28 05:38